=== PATIENT | male | born 1960 | race Caucasian/White ===

== ENCOUNTER → 2018-02-17 09:17 | Outpatient (CLI) | payer BC, SELFPAY ==
[2018-02-17 12:41] LABS: Anion Gap 2 (5-15); BUN 18 mg/dL (7-18); BUN/Creat Ratio 17.6 RATIO (10-20); Chloride 105 mmol/L (98-107); Creatinine, Serum 1.02 mg/dL (0.70-1.30); EST Glomerular Filtration Rate 80 mL/min (>60); Est Glom Filt Rate - Afr Amer 96 mL/min (>60); Glucose 101 mg/dL (74-106); PSA,Total - Annual Screen 5.77 ng/mL (0.00-4.00); Sodium Level 139 mmol/L (136-145)
== END ==
PROVIDERS: Family Provider Family Medicine; PCP Family Medicine; Visit Provider Family Medicine
DX: R31.9 Hematuria, unspecified (principal); Z12.5 Encounter for screening for malignant neoplasm of prostate
CPT/HCPCS: 36415; 80048; 84153; 87086; 87088; G0103

== ENCOUNTER → 2018-05-13 09:19 | Outpatient (CLI) | payer BC, SELFPAY ==
[2018-05-13 11:02] LABS: PSA,Total- Diagnostic 4.64 ng/mL (0.0-4.0)
== END ==
PROVIDERS: Family Provider Family Medicine; PCP Family Medicine; Visit Provider Family Medicine
DX: R97.20 Elevated prostate specific antigen [PSA] (principal)
CPT/HCPCS: 36415; 84153

== ENCOUNTER → 2018-08-18 08:41 | Outpatient (CLI) | payer BC, SELFPAY ==
[2018-08-18 11:25] LABS: PSA,Total- Diagnostic 5.72 ng/mL (0.0-4.0)
== END ==
PROVIDERS: Family Provider Family Medicine; PCP Family Medicine; Visit Provider Family Medicine
DX: R97.20 Elevated prostate specific antigen [PSA] (principal)
CPT/HCPCS: 36415; 84153

== ENCOUNTER → 2019-02-03 08:51 | Outpatient (CLI) | payer OTHER, SELFPAY ==
[2019-02-03 10:40] LABS: Anion Gap 4 (5-15); BUN 20 mg/dL (7-18); BUN/Creat Ratio 20.7 RATIO (10-20); Calcium,Total 8.6 mg/dL (8.5-10.1); Chloride 106 mmol/L (98-107); Cholesterol 189 mg/dL (200); Creatinine, Serum 0.96 mg/dL (0.70-1.30); EST Glomerular Filtration Rate 85 mL/min (>60); Est Glom Filt Rate - Afr Amer 102 mL/min (>60); Glucose 87 mg/dL (74-106); High Density Lipoprotein 41 mg/dL; PSA,Total- Diagnostic 5.02 ng/mL (0.0-4.0); Potassium 4.2 mmol/L (3.5-5.1); Sodium Level 142 mmol/L (136-145); Triglycerides 137 mg/dL; Very Low Density Lipoprotein 27 mg/dL (5-40)
== END ==
PROVIDERS: Family Provider Family Medicine; PCP Family Medicine; Referring Provider Family Medicine; Visit Provider Family Medicine
DX: N20.0 Calculus of kidney (principal); R97.20 Elevated prostate specific antigen [PSA]; Z13.220 Encounter for screening for lipoid disorders
CPT/HCPCS: 36415; 80048; 80061; 84153

== ENCOUNTER → 2019-07-13 | Outpatient (CLI) | payer OTHER, SELFPAY ==
[2019-07-13 10:30] LABS: PSA,Total- Diagnostic 5.02 ng/mL (0.0-4.0)
== END | disposition home or self-care (01) ==
LOC: MFPLAB 08:02
PROVIDERS: Family Provider Family Medicine; PCP Family Medicine; Referring Provider Family Medicine; Visit Provider Family Medicine
DX: R97.20 Elevated prostate specific antigen [PSA] (principal)
CPT/HCPCS: 36415; 84153

== ENCOUNTER → 2020-05-02 11:11 | Outpatient (CLI) | payer OTHER, SELFPAY ==
[2020-05-02 11:15] LABS: Mucous, Urine 0 SEEN /hpf (<or=2+); Red Blood Cells-Urine 0 SEEN /hpf (0-5); Squamous Epithelial Cells - UA 0 SEEN /hpf (0-5); White Blood Cells 0 SEEN /hpf (0-5)
[2020-05-02 12:23] LABS: Color, Urine Yellow (Yellow); Glucose, Dipstick Normal (Normal); Ketone-Dipstick Negative (Negative); Leukocyte Esterase-Dipstick Negative /ul (Negative); Nitrite-Dipstick Negative (Negative); Occult Blood-Urine 10 /ul (Negative); Protein-Dipstick 15 mg/dl (Negative); Urine Bilirubin Dipstick Negative (Negative); Urine Clarity Clear (Clear); Urine Urobilinogen Normal (Normal)
[2020-05-02 12:29] LABS: Bacteria RARE /hpf (None Seen)
== END ==
PROVIDERS: PCP Family Medicine; Referring Provider Family Medicine; Visit Provider Family Medicine
DX: R30.0 Dysuria (principal)
CPT/HCPCS: 81001; 87086

== ENCOUNTER → 2020-05-04 17:34 | Outpatient (CLI) | payer OTHER, SELFPAY ==
--- NOTE | 2020-05-04 17:40 | CT_ITS ---
STUDY: CT ABDOMEN AND PELVIS WITHOUT CONTRAST REASON FOR EXAM: Male, 60 years old. Groin/bladder/penile pain. Hematuria. RADIATION DOSAGE (If Supplied By Facility): CTDIvol = ( 6.04 ) mGy, DLP = ( 306.55 ) mGycm TECHNIQUE: Transaxial images were obtained from the dome of the diaphragm to the symphysis pubis without oral contrast, and without intravenous contrast. Sagittal and coronal images were reconstructed. Individualized dose optimization techniques were used for this CT. COMPARISON: 10/19/2015 FINDINGS: The visualized lung bases are unremarkable. The visualized portions of the heart are within normal limits. Normal liver. Multiple small gallstones within the gallbladder. There is no wall thickening or inflammatory change. There is a cyst in the anterior spleen. Normal pancreas. Normal bilateral adrenal glands. Normal right kidney. Normal left kidney. Normal visualized stomach. Normal small intestine. Normal colon. The appendix is visualized and appears normal. There is diffuse atherosclerotic calcification of the abdominal aorta, without a demonstrated aneurysm. Normal inferior vena cava. Normal retroperitoneum. There is a ovoid 1.7 x 0.8 x 0.9 cm calcific mass in the left posterior bladder lumen. There is no wall thickening. The prostate is massively enlarged and invaginates into the bladder floor. There is no pelvic lymphadenopathy. No free air or free fluid is seen within the peritoneal cavity. Normal abdominal wall. There are diffuse degenerative changes of the visualized lumbar spine. No lytic or blastic lesions are seen. CT/Abdomen/Pelvis without Cont IMPRESSION: 1. Large left-sided bladder calculus not present on previous CT. 2. No other major change in findings from 10/19/2015. Again seen is a markedly enlarged prostate, gallstones and a stable left splenic cyst. Electronically Signed: Clyde Guajardo DO at 22:47 EDT Tel [phone], Service support ,
== END ==
PROVIDERS: PCP Family Medicine; Referring Provider Family Medicine; Visit Provider Family Medicine
DX: R30.0 Dysuria (principal)
CPT/HCPCS: 74176

== ENCOUNTER → 2020-05-25 09:23 | Outpatient (CLI) | payer OTHER, SELFPAY ==
--- NOTE | 2020-05-25 09:35 | EKG12_ITS ---
Test Reason : PRE OP Blood Pressure : / mmHG Vent. Rate : 059 BPM Atrial Rate : 059 BPM P-R Int : 140 ms QRS Dur : 100 ms QT Int : 382 ms P-R-T Axes : 036 080 071 degrees QTc Int : 378 ms Sinus bradycardia Otherwise normal ECG Confirmed by AURELIANO WATSON, SOUMYA ([id number]), make up editor DIOGENES RENE ([id number]) on 05/26/2020 11:37:00 A M Referred By: Aracely Lynn Confirmed By:GIANNA BEDOYA MD
[2020-05-25 09:42] LABS: Hematocrit 46.4 % (40-54); Hemoglobin 14.8 g/dL (13.0-16.5); Mean Corp Hgb Conc 31.9 g/dL (32-36); Mean Corpuscular Hgb 29.9 pg (27.0-32.0); Mean Corpuscular Volume 93.7 fL (80-94); Mean Platelet Vol. 11.4 fl (6.2-12.0); Platelet Count 191 K/mm3 (150-450); RBC Distribution Width CV 13.1 % (11.6-14.6); RBC Distribution Width SD 44.8 fl (35.1-43.9); Red Blood Count 4.95 M/mm3 (4.6-6.2)
[2020-05-25 10:11] LABS: Anion Gap 3 (5-15); BUN 21 mg/dL (7-18); BUN/Creat Ratio 17.9 RATIO (10-20); Calcium,Total 8.9 mg/dL (8.5-10.1); Chloride 104 mmol/L (98-107); Creatinine, Serum 1.17 mg/dL (0.70-1.30); EST Glomerular Filtration Rate 67 mL/min (>60); Est Glom Filt Rate - Afr Amer 82 mL/min (>60); Glucose 93 mg/dL (74-106); Potassium 3.9 mmol/L (3.5-5.1); Sodium Level 138 mmol/L (136-145)
== END ==
PROVIDERS: PCP Family Medicine; Referring Provider Nurse Practitioner Adult Health; Visit Provider Nurse Practitioner Adult Health
DX: N21.0 Calculus in bladder (principal)
CPT/HCPCS: 36415; 80048; 85027; 87635; 93005; 94799; U0003

== ENCOUNTER → 2020-07-04 12:30 | Outpatient (CLI) | payer OTHER, SELFPAY | PROVIDERS: PCP Family Medicine; Referring Provider Family Medicine; Visit Provider Family Medicine | DX: R05 Cough (principal) | CPT/HCPCS: 87635; U0003 ==

== ENCOUNTER → 2020-07-27 08:49 | Outpatient (CLI) | payer OTHER, SELFPAY ==
[2020-07-27 09:58] LABS: PSA,Total- Diagnostic 5.76 ng/mL (0.0-4.0)
== END ==
PROVIDERS: PCP Family Medicine; Referring Provider Urology; Visit Provider Urology
DX: R97.20 Elevated prostate specific antigen [PSA] (principal)
CPT/HCPCS: 36415; 84153

== ENCOUNTER → 2020-08-31 10:52 | Outpatient (CLI) | payer OTHER, SELFPAY ==
--- NOTE | 2020-08-31 | IMM_PTH ---
PATIENT: MIGUE PURDY LOC: [facility] U#:[id number] AGE/SX: 65/M ROOM: RE08/31/[address]: Dr. Pablo Lara MD : 1960 BED: DIS: SPEC #: [id number] RECD: 09/01/20 11:45 STATUS: HARPREET REQ #: [id number] EVERARDO: 08/31/20 00:[address]: Pablo Lara DEPT: IMMUNOHISTOCHEMISTRY RECD BY: Maddie Vásquez ENTERED: 09/01/20 11:46 SP TYPE: IMMUNO OTHR DR: Dr. Pankaj Nicolas MD Tissues: B - PROSTATE RIGHT D - PROSTATE LEFT Procedures: 34BE12 (add) P40 (add) 34BE12 (initial) PHYSICIAN & INSTITUTION [place] [id number] SPECIMEN INFORMATION: Tissue Source: B - Right prostate, mid, core biopsy, D - Left prostate, apex, core biopsy Clinical Info: Elevated PSA Specimen Number: [id number] B & D CPT code: 95669, 43694 x3 METHODOLOGY: Deparaffinized sections of prefer/formalin-fixed tissue or PAP/DQ stained slides are incubated with monoclonal/polyclonal antibodies/oligonucleotide probes. Localization is made via biotin free immunoperoxidase method. Appropriate controls are performed and reacted as expected. Results on target cell population are indicated in the following table: RESULTS: ANTIBODY / CLONE RESULT Block B P40 (BC28) positive 34BE12 (34BE12) positive Block D P40 (BC28) positive 34BE12 (34BE12) positive These tests were developed and their performance characteristics determined by [facility]. They may not have been cleared or approved by the U.S. Food and Drug Administration. The FDA has determined that such clearance or approval is not necessary. The above immunohistochemical/dualISH markers are ordered and reviewed by the Pathologist. INTERPRETATION: B. Right prostate, mid, core biopsy: Consistent with focal high-grade prostatic intraepithelial neoplasia (HGPIN). D. Left prostate, apex, core biopsy: Benign metastatic tissue. AM:josefa 09/04/20
--- NOTE | 2020-08-31 08:00 | PROSBIL_PTH ---
PATIENT: MIGUE PURDY LOC: [facility] U#:[id number] AGE/SX: 65/M ROOM: RE08/31/[address]: Dr. Pablo Lara MD : 1960 BED: DIS: SPEC #: [id number] RECD: 08/31/20 10:35 STATUS: HARPREET LESLIE #: [id number] EVERARDO: 08/31/20 08:[address]: Pablo Lara DEPT: SURGICAL PATHOLOGY RECD BY: Amie Gaitan ENTERED: 08/31/20 12:00 SP TYPE: PROST BX REDDY DR: Dr. Pankaj Nicolas MD Tissues: A - PROSTATE RIGHT B - PROSTATE RIGHT C - PROSTATE RIGHT D - PROSTATE LEFT E - PROSTATE LEFT F - PROSTATE LEFT Procedures: PROSTATE BX HEADER OPERATION: Prostate biopsy PRE-OP DIAGNOSIS: Elevated PSA TISSUE SUBMITTED: A - Right apex, B - Right mid, C - Right base, D - Left apex, E - Left mid, F - Left base MICROSCOPIC DIAGNOSIS A. Right prostate, apex, core biopsy: Prostatic tissue, negative for malignancy. B. Right prostate, mid, core biopsy: Focal high-grade prostatic intraepithelial neoplasia (HGPIN). See comment. C. Right prostate, base, core biopsy: Prostatic tissue, negative for malignancy. D. Left prostate, apex, core biopsy: Focal atrophy. See comment. E. Left prostate, mid, core biopsy: Focal high-grade prostatic intraepithelial neoplasia (HGPIN). F. Left prostate, base, core biopsy: Focal high-grade prostatic intraepithelial neoplasia (HGPIN). SJ:josefa 09/01/20 COMMENT B & D. Immunohistochemistry ([id number]) supports the above diagnosis. Case has been reviewed in consultation with Dr. Zarate who concurs with the above diagnosis. IDC:[email or web address] MICROSCOPIC DESCRIPTION Slides are reviewed. GROSS DESCRIPTION A - Received is one container designated prostate, right apex. The specimen consists of one elongated fragment of light espinoza-white soft tissue measuring 0.8 cm in length and 0.1 cm in diameter. The specimen is totally submitted in one cassette. B - Received is one container designated prostate, right mid. The specimen consists of two elongated fragments of light espinoza-white soft tissue measuring 1.2 and 1.8 cm in length and 0.1 cm in diameter. The specimen is totally submitted in one cassette. C - Received is one container designated prostate, right base. The specimen consists of two elongated fragments of light espinoza-white soft tissue measuring 1.2 and 1.7 cm in length and 0.1 cm in diameter. The specimen is totally submitted in one cassette. D - Received is one container designated prostate, left apex. The specimen consists of one elongated fragment of light espinoza-white soft tissue measuring 1 cm in length and 0.1 cm in diameter. The specimen is totally submitted in one cassette. E - Received is one container designated prostate, left mid. The specimen consists of two elongated fragments of light espinoza-white soft tissue measuring 0.7 and 1.5 cm in length and 0.1 cm in diameter. The specimen is totally submitted in one cassette. F - Received is one container designated prostate, left base. The specimen consists of two elongated fragments of light espinoza-white soft tissue measuring 1.2 and 1.5 cm in length and 0.1 cm in diameter. The specimen is totally submitted in one cassette. / SJ:rg 08/31/20 TC:? CPT: 93352 x6
== END ==
PROVIDERS: PCP Family Medicine; Referring Provider Urology; Visit Provider Urology
DX: N40.1 Benign prostatic hyperplasia with lower urinary tract symptoms (principal); R97.20 Elevated prostate specific antigen [PSA]
CPT/HCPCS: 88305; 88341; 88342; G0416

== ENCOUNTER → 2020-09-27 15:11 | Outpatient (CLI) | payer OTHER, SELFPAY | PROVIDERS: PCP Family Medicine; Visit Provider Family Medicine | DX: R05 Cough (principal) | CPT/HCPCS: 87635; U0003 ==

== ENCOUNTER → 2020-10-09 14:54 | Outpatient (CLI) | payer OTHER, SELFPAY ==
--- NOTE | 2020-10-09 15:03 | RAD_ITS ---
STUDY: X-RAY CHEST REASON FOR EXAM: Male, 60 years old. UPPER CHEST DISCOMFORT, COUGH- POSTIVE COVID 09/27, NOW HAVING FEVERS AND CONTINUED UPPER CHEST DISCOMFORT TECHNIQUE: PA and lateral views of the chest. COMPARISON: None. FINDINGS: The lungs are clear and expanded. There is no demonstrated pleural abnormality. Normal size heart. Normal mediastinum and monica. Normal visualized pulmonary arteries. Normal visualized aortic arch and descending thoracic aorta. Normal visualized thoracic spine. Normal visualized ribs, clavicles, and shoulders. There is no demonstrated abnormality of the visualized soft tissue structures of the upper abdomen. RAD/Chest PA and Lateral IMPRESSION: Normal x-ray examination of the chest. Electronically Signed: Beto Lee MD at 15:46 EST Tel , Service support ,
== END ==
PROVIDERS: PCP Family Medicine; Referring Provider Nurse Practitioner Adult Health; Visit Provider Nurse Practitioner Adult Health
DX: R05 Cough (principal)
CPT/HCPCS: 71046

== ENCOUNTER → 2021-02-09 07:42 | Outpatient (CLI) | payer OTHER, SELFPAY ==
[2021-02-09 10:58] LABS: PSA,Total- Diagnostic 6.24 ng/mL (0.0-4.0)
== END ==
PROVIDERS: PCP Family Medicine; Referring Provider Urology; Visit Provider Urology
DX: R97.20 Elevated prostate specific antigen [PSA] (principal)
CPT/HCPCS: 36415; 84153

== ENCOUNTER → 2021-05-04 13:44 | Outpatient (CLI) | payer OTHER, SELFPAY ==
--- NOTE | 2021-05-04 13:52 | ECHOD_ITS ---
Reason For Study: Abnormal EKG Procedure This was a 2D Doppler, Color Flow transthoracic echocardiogram. The exam was of adequate technical quality. Exam performed in department. Left Ventricle Normal LV size. Left ventricular systolic function is normal. The estimated ejection fraction is 65 %. There is evidence of diastolic dysfunction. No regional wall motion abnormalities noted. Right Ventricle Normal RV size. Normal systolic function. Atria The left atrium is mildly enlarged. The right atrium is mildly enlarged. No doppler evidence for ASD. Mitral Valve There is no mitral annular calcification. Mild focal mitral valve calcification of the anterior leaflet. Trivial mitral valve insufficiency. Tricuspid Valve Normal tricuspid valve. Mild tricuspid valve insufficiency. Right ventricular systolic pressure estimated to be 24 mmHg. Aortic Valve Trisinus/trileaflet aortic valve. Mild diffuse aortic valve thickening. Mild focal aortic valve calcification. Pulmonic Valve The pulmonic valve is not well visualized. Great Vessels The aortic root is not well visualized. Pericardium/Pleural No pericardial effusion. MMode/2D Measurements & Calculations LVIDd: 3.5 cm IVSd: 1.1 cm LA dimension: 2.8 cm LVIDs: 1.9 cm LVPWd: 1.3 cm RVDd: 3.9 cm FS: 45.4 % LAV(MOD-bp): 59.5 ml LA A4 area: 21.1 cm2 RA A4 area: 21.1 cm2 LAV(MOD-bp) Indexed: 34.2 ml/m2 LAV(MOD-sp2): 56.0 ml LAV(MOD-sp4): 62.9 ml Time Measurements MV dec time: 0.30 sec Doppler Measurements & Calculations MV E max silver: 108.9 cm/sec Lat Peak E' Silver: 6.3 cm/sec Med Peak E' Silver: 7.3 cm/sec MV A max silver: 120.2 cm/sec E/E' lat: 17.2 E/E' med: 14.9 MV E/A: 0.91 MV V2 max: 168.2 cm/sec MV P1/2t max silver: 154.1 cm/sec Ao V2 max: 159.4 cm/sec MV max P.3 mmHg MV P1/2t: 106.8 msec Ao max P.2 mmHg MV V2 mean: 98.1 cm/sec MV dec slope: 422.6 cm/sec2 MV mean P.5 mmHg MVA(P1/2t): 2.1 cm2 MV V2 VTI: 51.5 cm LV V1 max: 132.5 cm/sec PA V2 max: 68.6 cm/sec TR max silver: 231.2 cm/sec LV V1 max P.0 mmHg TR max P.4 mmHg ECHO/Echo Complete Interpretation Summary Left ventricular systolic function is normal. The estimated ejection fraction is 65 %. The left atrium is mildly enlarged. The right atrium is mildly enlarged. Mild focal mitral valve calcification of the anterior leaflet. Trivial mitral valve insufficiency. Mild tricuspid valve insufficiency. Mild diffuse aortic valve thickening. Mild focal aortic valve calcification. Right ventricular systolic pressure estimated to be 24 mmHg. There is evidence of diastolic dysfunction. Ordering Physician: Karen Espinal Referring Physician: Karen Espinal Performed By: Rommel Ramirez RCS
== END ==
PROVIDERS: PCP Internal Medicine; Referring Provider Internal Medicine; Visit Provider Internal Medicine
DX: R94.31 Abnormal electrocardiogram [ECG] [EKG] (principal)
CPT/HCPCS: 93306

== ENCOUNTER → 2021-07-12 11:42 | Outpatient (CLI) | payer OTHER, SELFPAY ==
[2021-07-12 15:15] LABS: PSA,Total- Diagnostic 7.98 ng/mL (0.0-4.0)
[2021-07-15 07:48] LABS: PSA, Free 1.35 ng/mL; PSA, Total Ultrasensitive 7.1 ng/mL (0.0-4.0)
== END ==
PROVIDERS: PCP Urology; Referring Provider Urology; Visit Provider Urology
DX: R97.20 Elevated prostate specific antigen [PSA] (principal)
CPT/HCPCS: 36415; 84153; 84154

== ENCOUNTER → 2021-08-13 17:42 | Outpatient (CLI) | payer OTHER, SELFPAY ==
[2021-08-09 16:36] LABS: CREATININE FINGERSTICK < 0.6 mg/dL (0.70-1.30); EGFR FINGERSTICK > 60.0000 mL/min (>60)
--- NOTE | 2021-08-13 17:59 | MRI_ITS ---
MR Pelvis WO/W Contrast 08/13/2021 6:20 PM COMPARISON: None CLINICAL HISTORY: 61 yo man with elevated PSA Most recent PSA = not provided TECHNIQUE: Standard Prostate MRI protocol was used before and after administration of IV gadolinium. FINDINGS: Prostate volume: 82 cc PSA density: PSA level not provided Length of membranous urethra: 19 mm Post-biopsy hemorrhage: None Multiparametric MR evaluation: Heterogeneous appearance of the central gland is consistent with benign prostatic hyperplasia. No suspicious T2 dark or diffusion restricting lesions. Seminal vesicles: Normal Lymph nodes: No lymphadenopathy in the field of view. Bones: No suspicious lesions in the field of view. MRI/Pelvis W/WO Contrast IMPRESSION: OVERALL SCORE - PI-RADS 2: Benign prostatic hyperplasia. No suspicious T2 dark or diffusion restricting lesions. No lymphadenopathy. No suspicious bone lesions. Electronically Signed: Koko Peters MD at 21:49 EST Tel , Service support ,
== END ==
PROVIDERS: PCP Internal Medicine; Referring Provider Urology; Visit Provider Urology
DX: N40.1 Benign prostatic hyperplasia with lower urinary tract symptoms (principal); R97.20 Elevated prostate specific antigen [PSA]
CPT/HCPCS: 72197; A9575

== ENCOUNTER 2022-04-06 18:33 | Inpatient (IN) | payer OTHER, SELFPAY ==
[2022-04-06 18:34] VITALS: BP 200/84; RESP 18; TEMP 36.6
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
--- NOTE | 2022-04-06 19:19 | EKG12_ITS ---
Test Reason : Blood Pressure : / mmHG Vent. Rate : 093 BPM Atrial Rate : 093 BPM P-R Int : 148 ms QRS Dur : 084 ms QT Int : 344 ms P-R-T Axes : 082 083 079 degrees QTc Int : 427 ms Normal sinus rhythm Normal ECG Confirmed by ANALY WATSON, MONICA ([id number]), order editor DIOGENES RENE ([id number]) on 04/09/2022 9:00:36 AM Referred By: Confirmed By:MONCIA BECKFORD MD
[2022-04-06] MEDS: Ondansetron 4 MG/2 ML Vial IV ×2 (19:41→22:51)
[2022-04-06] MEDS: morphine 8 MG/ML Syringe 6 MG IV (19:43)
[2022-04-06 19:44] LABS: Hematocrit 44.5 % (40-54); Hemoglobin 14.5 g/dL (13.0-16.5); Mean Corp Hgb Conc 32.6 g/dL (32-36); Mean Corpuscular Hgb 30.5 pg (27.0-32.0); Mean Corpuscular Volume 93.5 fL (80-94); Mean Platelet Vol. 12.1 fl (6.2-12.0); Platelet Count 177 K/mm3 (150-450); RBC Distribution Width SD 44.3 fl (35.1-43.9); Red Blood Count 4.76 M/mm3 (4.6-6.2)
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
[2022-04-06 19:57] LABS: Anion Gap 7 (5-15); BUN 26 mg/dL (7-18); BUN/Creat Ratio 27.2 RATIO (10-20); Calcium,Total 8.9 mg/dL (8.5-10.1); Chloride 109 mmol/L (98-107); Creatinine, Serum 0.96 mg/dL (0.70-1.30); EST Glomerular Filtration Rate 84 mL/min (>60); Est Glom Filt Rate - Afr Amer 102 mL/min (>60); Estimated Creatinine Clearance 71.66 ml/min; Glucose 115 mg/dL (74-106); Potassium 3.9 mmol/L (3.5-5.1); Sodium Level 143 mmol/L (136-145)
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
[2022-04-06 20:41] VITALS: BP 137/70; PULSE 74; RESP 16; TEMP 37.1; O2SAT 97
[2022-04-06] MEDS: Lactated Ringers 1,000 ML 75 ML IV (21:00)
[2022-04-06 21:01] VITALS: BMI 19.8
[2022-04-06 21:04] VITALS: BP 133/79; PULSE 96; RESP 18; TEMP 36.9; O2SAT 93
[2022-04-06] MEDS: Doxazosin 1 MG Tablet 2 MG PO (22:13)
[2022-04-06] MEDS: Morphine 4 MG/ML Syringe IV (22:51)
[2022-04-06] MEDS: 0.9% Saline Lock 10 ML Syringe IV (22:51)
[2022-04-07] VITALS (11 sets, daily range): BP systolic 98–130; BP diastolic 56–80; PULSE 79–103; RESP 14–18; TEMP 36.3–36.9; O2SAT 92–100; BMI 19.8
[2022-04-07 06:29] LABS: Absolute Lymphocyte Count 0.38 X10^3/uL (0.83-4.51); Absolute Neutrophil Count 13.6 X10^3/uL (2.0-7.7); Basophil# 0.01 X10^3/uL; Basophil% 0.1 % (0-1); Hematocrit 39.2 % (40-54); Hemoglobin 13.1 g/dL (13.0-16.5); Lymphocyte # 0.38 X10^3/ul (0.83-4.51); Lymphocyte % 2.5 % (19-41); Mean Corp Hgb Conc 33.4 g/dL (32-36); Mean Corpuscular Hgb 30.3 pg (27.0-32.0); Mean Corpuscular Volume 90.5 fL (80-94); Mean Platelet Vol. 11.9 fl (6.2-12.0); Monocyte% 6.7 % (0-10); NRBC Flagged by Analyzer 0 % (0-5); Neutrophil # 13.57 X10^3/uL (2.7-7.7); Neutrophil % 90.3 % (47-70); POSITIVE DIFFERENTIAL YES; Platelet Count 137 K/mm3 (150-450); RBC Distribution Width CV 13.2 % (11.6-14.6); RBC Distribution Width SD 43.9 fl (35.1-43.9); Red Blood Count 4.33 M/mm3 (4.6-6.2)
[2022-04-07 06:32] LABS: Differential Indicated SCAN CRITERIA MET
[2022-04-07] MEDS: Morphine 4 MG/ML Syringe IV (06:37)
[2022-04-07] MEDS: Ondansetron 4 MG/2 ML Vial IV ×2 (06:37→16:49)
[2022-04-07] MEDS: 0.9% Saline Lock 10 ML Syringe IV ×2 (06:37→16:49)
[2022-04-07 06:56] LABS: Anion Gap 5 (5-15); BUN 23 mg/dL (7-18); BUN/Creat Ratio 26.7 RATIO (10-20); Calcium,Total 8.8 mg/dL (8.5-10.1); Chloride 106 mmol/L (98-107); Creatinine, Serum 0.86 mg/dL (0.70-1.30); EST Glomerular Filtration Rate 95 mL/min (>60); Est Glom Filt Rate - Afr Amer 115 mL/min (>60); Estimated Creatinine Clearance 78.73 ml/min; Glucose 152 mg/dL (74-106); Potassium 3.9 mmol/L (3.5-5.1); Sodium Level 139 mmol/L (136-145)
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
[2022-04-07] MEDS: Lactated Ringers 1,000 ML 75 ML IV ×2 (08:07→10:31)
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
--- NOTE | 2022-04-07 09:00 | RAD_ITS ---
STUDY: X-RAY - PELVIS AND RIGHT HIP REASON FOR EXAM: Male, 61 years old. HIP FX TECHNIQUE: AP and frog leg views of the pelvis and hip. 71.7 seconds of fluoroscopy time. COMPARISON: Yesterday FINDINGS: Femoral medullary ludy with distal interlocking screw and femoral neck fixation screw spanning IT fracture. RAD/HIP, UNI W/ Pelvis 2-3 Views IMPRESSION: Fluoroscopic guidance for IT fracture fixation. Electronically Signed: Andrade Torres MD ([facility]) at 16:53 EDT ,
--- NOTE | 2022-04-07 09:06 | RAD_ITS ---
STUDY: X-RAY - RIGHT CLAVICLE REASON FOR EXAM: Male, 61 years old. CLAVICLE FX TECHNIQUE: 2 fluoroscopic view(s) of the clavicle. 10.1 seconds of fluoroscopy time. COMPARISON: 04/06/2022 FINDINGS: Fixation plate and screws spanning clavicle fracture. Gross alignment. RAD/Clavicle IMPRESSION: Orthopedic fixation of clavicle fracture. Electronically Signed: Andrade Torres MD ([facility]) at 16:51 EDT ,
[2022-04-07] MEDS: Cefazolin 2 GM in 0.9% Normal Saline 100 ML IV (10:00)
[2022-04-07] MEDS: Lidocaine 1% /Epi 1:100 (20ml) 20 ML Vial (10:18)
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
--- NOTE | 2022-04-07 12:54 | PCM.PN.ORT ---
Subjective Subjective Seen and examined in the recovery area he is doing well he is comfortable he is neurovascular intact right upper and right lower extremity Objective Data Objective Data Vital Signs: Vital Signs Temp Pulse Resp BP Pulse Ox O2 Del Method 98.4 F 81 16 109/69 95 Room Air 04/07/22 08:00 04/07/22 08:00 04/07/22 08:00 04/07/22 08:00 04/07/22 08:00 04/07/22 08:00 Oxygen Delivery Method Room Air Weight: 137 lb 12.623 oz Body Mass Index (BMI) 19.8 Intake & Output: Intake and Output for Last 24 Hours 04/05/22 04/06/22 04/07/22 23:59 23:59 23:59 Intake Total 1073.75 / 1073.75 Output Total 475 / 475 Balance 598.75 / 598.75 Lab / Micro Data Result Diagrams: 04/07/22 05:55 04/07/22 05:55 Labs: Laboratory Results - last 24 hr 04/06/22 19:24: Blood Type O NEGATIVE, Antibody Screen NEGATIVE 04/06/22 19:33: WBC 17.0 H, RBC 4.76, Hgb 14.5, Hct 44.5, MCV 93.5, MCH 30.5, MCHC 32.6, RDW Std Deviation 44.3 H, RDW Coeff of Letty 13.0, Plt Count 177, MPV 12.1 H 04/06/22 19:33: Sodium 143, Potassium 3.9, Chloride 109 H, Carbon Dioxide 27.0, Anion Gap 7, BUN 26 H, Creatinine 0.96, Estim Creat Clear Calc 71.66, Est GFR (MDRD) Af Amer 102, Est GFR (MDRD) Non-Af 84, BUN/Creatinine Ratio 27.2 H, Glucose 115 H, Calcium 8.9 04/07/22 05:55: WBC 15.0 H, RBC 4.33 L, Hgb 13.1, Hct 39.2 L, MCV 90.5, MCH 30.3, MCHC 33.4, RDW Std Deviation 43.9, RDW Coeff of Letty 13.2, Plt Count 137 L, MPV 11.9, Immature Gran % (Auto) 0.400, Neut % (Auto) 90.3 H, Lymph % (Auto) 2.5 L, [place] % (Auto) 6.7, Eos % (Auto) 0.0, Baso % (Auto) 0.1, Absolute Neuts (auto) 13.6 H, Absolute Lymphs (auto) 0.38 L, Nucleated RBC % 0 04/07/22 05:55: Sodium 139, Potassium 3.9, Chloride 106, Carbon Dioxide 28.0, Anion Gap 5, BUN 23 H, Creatinine 0.86, Estim Creat Clear Calc 78.73, Est GFR (MDRD) Af Amer 115, Est GFR (MDRD) Non-Af 95, BUN/Creatinine Ratio 26.7 H, Glucose 152 H, Calcium 8.8 Radiography Diagnostic Testing: Radiology Impression Brain CT 04/06/22 18:41 IMPRESSION: No acute intracranial hemorrhage or mass effect. Electronically Signed: Andrade Torres MD ([facility]) at 19:50 EDT , Cervical Spine CT 04/06/22 18:41 IMPRESSION: No acute findings in the cervical spine. Electronically Signed: Andrade Torres MD ([facility]) at 19:55 EDT , Facial/Sinus 04/06/22 18:51 IMPRESSION: Nondisplaced right zygomatic arch fracture. Electronically Signed: Andrade Torres MD ([facility]) at 19:53 EDT , Chest X-Ray 04/06/22 19:13 IMPRESSION: Right clavicle fracture. No acute cardiopulmonary process. Electronically Signed: Andrade Torres MD ([facility]) at 19:36 EDT , Hip/Pelvis X-Ray 04/06/22 19:13 IMPRESSION: 1. Right IT fracture. 2. Right superior and inferior rami fractures. Electronically Signed: Andrade Torres MD ([facility]) at 19:26 EDT , Shoulder X-Ray 04/06/22 19:13 IMPRESSION: Right clavicle fracture. Electronically Signed: Andrade Torres MD ([facility]) at 19:37 EDT , Pelvis CT 04/06/22 19:56 IMPRESSION: 1. Right intertrochanteric fracture. 2. Right superior ramus fracture. 3. BILATERAL inferior obturator ring fractures. 4. Right sacral fractures. Electronically Signed: Andrade Torres MD ([facility]) at 21:09 EDT , Rhythm Strip Rhythm Strip: Sinus Rhythm Rate: 93 Ectopy: None Physical Exam Const no apparent distress Extremity Extremity Narrative: Right upper extremity and right lower extremity dressings clean dry and intact compartments soft he is neurovascular intact right upper and right lower extremity Assessment & Plan Assessment/Plan (1) Closed fracture of right clavicle: (2) Closed right hip fracture: PLAN: Plan Status post right hip trochanteric femoral nail along and right clavicle ORIF In regards to the right lower extremity he can be weightbearing as tolerated but considering his pelvic ring fractures I would not force him to bear weight and he is comfortable. He is limited to 10 pound restriction to the right upper extremity this is going to make rehab challenging and I strongly recommend that he receive rehab prior to going home I did discuss this with the family and they agree. I would recommend anticoagulation Eliquis 2.5 mg twice daily for 3 weeks. Pain control oxycodone Patient really will require physical therapy for upper and lower extremity He should leave his right hip dressing on for 72 hours and then remove and may begin cleaning with antibacterial soap and warm water and replace with dry dressing He can leave his right shoulder dressing on for 5 days then remove and begin cleaning with antibacterial soap and warm water and replace with dry dressing He will need to have his tone evaluated 2 weeks postop for possible removal in my office
[2022-04-07] MEDS: Cefazolin 1 GM/50 ML BAG IV ×2 (13:02→21:43)
[2022-04-07] MEDS: Acetaminophen 500 MG Tablet 1000 MG PO ×2 (14:41→21:47)
[2022-04-07] MEDS: oxyCODONE 5 MG Tablet 10 MG PO (18:03)
[2022-04-07] MEDS: proMETHazine 25 MG/ML Syringe 12.5 MG IM (19:36)
[2022-04-08] VITALS (7 sets, daily range): BP systolic 105–129; BP diastolic 61–70; PULSE 93–105; RESP 14–18; TEMP 37.2–37.4; O2SAT 84–95
[2022-04-08] MEDS: Cefazolin 1 GM/50 ML BAG IV (05:01)
[2022-04-08] MEDS: Acetaminophen 500 MG Tablet 1000 MG PO ×2 (05:02→13:26)
[2022-04-08] MEDS: APIXABAN 2.5 MG TABLET PO ×2 (05:35→21:06)
[2022-04-08 06:23] LABS: Hematocrit 30.5 % (40-54); Mean Corp Hgb Conc 32.8 g/dL (32-36); Mean Corpuscular Hgb 30.7 pg (27.0-32.0); Mean Corpuscular Volume 93.6 fL (80-94); Mean Platelet Vol. 12.4 fl (6.2-12.0); POSITIVE COUNT YES; Platelet Count 86 K/mm3 (150-450); RBC Distribution Width CV 13.4 % (11.6-14.6); RBC Distribution Width SD 45.5 fl (35.1-43.9); Red Blood Count 3.26 M/mm3 (4.6-6.2); White Blood Count 12.8 K/mm3 (4.4-11.0)
[2022-04-08] MEDS: Lactated Ringers 1,000 ML 75 ML IV ×2 (06:31→18:15)
[2022-04-08 06:52] LABS: Anion Gap 7 (5-15); BUN 18 mg/dL (7-18); BUN/Creat Ratio 16.8 RATIO (10-20); Calcium,Total 8.1 mg/dL (8.5-10.1); Chloride 100 mmol/L (98-107); Creatinine, Serum 1.07 mg/dL (0.70-1.30); EST Glomerular Filtration Rate 74 mL/min (>60); Est Glom Filt Rate - Afr Amer 90 mL/min (>60); Estimated Creatinine Clearance 63.28 ml/min; Glucose 111 mg/dL (74-106); Potassium 3.6 mmol/L (3.5-5.1); Sodium Level 134 mmol/L (136-145)
[2022-04-08 06:58] LABS: Scan Indicated on CBC? Y/N YES- FLAGS NOTED
[2022-04-08] MEDS: oxyCODONE 5 MG Tablet 10 MG PO ×2 (07:48→12:24)
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
--- NOTE | 2022-04-08 12:42 | CASEMGMT ---
Social Work SW received referral from RNCM that pt is interested in [facility] Inpatient Rehab Unit. Phone call to [facility] in [place] and they are able to accept pt. Precert has been started. KAROLINE will continue to follow. Plan: Inpatient Rehab, pending precert RAJAN Haynes
[2022-04-08] MEDS: 0.9% Saline Lock 10 ML Syringe IV (14:06)
[2022-04-08] MEDS: Ondansetron 4 MG/2 ML Vial IV (14:06)
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
[2022-04-08] MEDS: proMETHazine 25 MG/ML Syringe 12.5 MG IM (18:15)
[2022-04-08] MEDS: Doxazosin 1 MG Tablet 2 MG PO (21:06)
[2022-04-09 04:40] LABS: Hematocrit 28.6 % (40-54); Hemoglobin 9.7 g/dL (13.0-16.5); Mean Corp Hgb Conc 33.9 g/dL (32-36); Mean Corpuscular Hgb 30.5 pg (27.0-32.0); Mean Corpuscular Volume 89.9 fL (80-94); Mean Platelet Vol. 12.6 fl (6.2-12.0); POSITIVE COUNT YES; Platelet Count 76 K/mm3 (150-450); RBC Distribution Width CV 12.6 % (11.6-14.6); RBC Distribution Width SD 41.6 fl (35.1-43.9); Red Blood Count 3.18 M/mm3 (4.6-6.2); White Blood Count 9.7 K/mm3 (4.4-11.0)
[2022-04-09 05:00] VITALS: BP 130/71; PULSE 104; RESP 20; TEMP 37.2; O2SAT 95
[2022-04-09] MEDS: Acetaminophen 500 MG Tablet 1000 MG PO ×3 (05:10→21:52)
--- NOTE | 2022-04-09 06:15 | RAD_ITS ---
STUDY: X-RAY CHEST REASON FOR EXAM: Male, 61 years old. sob TECHNIQUE: Single AP portable view of the chest. COMPARISON: 04/06/2022 and 10/09/2020 FINDINGS: There is hyperinflation of the lungs consistent with chronic obstructive lung disease (COPD). Interstitial prominence throughout the lungs could represent mild edema. No consolidation or effusions. Normal size heart. Normal mediastinum and monica. Normal visualized pulmonary arteries. Normal visualized aortic arch and descending thoracic aorta. Normal visualized thoracic spine. Postsurgical changes of the right clavicle There is no demonstrated abnormality of the visualized soft tissue structures of the upper abdomen. RAD/Chest 1 View (Portable) IMPRESSION: Possible mild pulmonary edema. No consolidation or effusion. Postsurgical change of the right clavicle Electronically Signed: Fabiano Ramirez DO at 6:41 EDT ,
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
[2022-04-09 07:40] VITALS: O2SAT 94
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
[2022-04-09] MEDS: Furosemide 40 MG/4 ML Vial IV ×2 (08:09→14:35)
[2022-04-09] MEDS: APIXABAN 2.5 MG TABLET PO ×2 (08:09→21:51)
[2022-04-09 08:12] VITALS: BP 119/59; PULSE 97; RESP 18; TEMP 37.1; O2SAT 94
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
--- NOTE | 2022-04-09 10:50 | NURSING ---
Straight cath done and patient had 1,200 out.
[2022-04-09 14:31] VITALS: BP 129/68; PULSE 102; RESP 18; TEMP 37.4; O2SAT 98
--- NOTE | 2022-04-09 15:35 | CASEMGMT ---
ZELALEM CM in to pt room to make pt aware that approval has been received for the rehab unit by insurance when he is medically ready. Pt verbalizes understanding and denies any questions at this time.
[2022-04-09 21:43] VITALS: BP 116/72; PULSE 96; RESP 16; TEMP 36.8; O2SAT 96
[2022-04-09] MEDS: Doxazosin 4 MG Tablet PO (21:51)
[2022-04-10 02:16] VITALS: BP 110/74; PULSE 92; RESP 14; TEMP 37.1; O2SAT 97
[2022-04-10 05:22] LABS: Absolute Lymphocyte Count 0.59 X10^3/uL (0.83-4.51); Absolute Neutrophil Count 5.9 X10^3/uL (2.0-7.7); Basophil# 0.02 X10^3/uL; Basophil% 0.3 % (0-1); Eosinophil# 0.17 X10^3/uL; Eosinophils% 2.2 % (0-5); Hematocrit 29.4 % (40-54); Hemoglobin 10.2 g/dL (13.0-16.5); Lymphocyte # 0.59 X10^3/ul (0.83-4.51); Lymphocyte % 7.5 % (19-41); Mean Corp Hgb Conc 34.7 g/dL (32-36); Mean Corpuscular Hgb 30.6 pg (27.0-32.0); Mean Corpuscular Volume 88.3 fL (80-94); Mean Platelet Vol. 12.4 fl (6.2-12.0); Monocyte# 1.11 X10^3/uL; Monocyte% 14.1 % (0-10); NRBC Flagged by Analyzer 0 % (0-5); Neutrophil # 5.91 X10^3/uL (2.7-7.7); Neutrophil % 75.1 % (47-70); POSITIVE COUNT YES; POSITIVE DIFFERENTIAL YES; Platelet Count 83 K/mm3 (150-450); RBC Distribution Width CV 12.5 % (11.6-14.6); RBC Distribution Width SD 40.3 fl (35.1-43.9); Red Blood Count 3.33 M/mm3 (4.6-6.2); White Blood Count 7.9 K/mm3 (4.4-11.0)
[2022-04-10 05:25] LABS: Differential Indicated SCAN CRITERIA MET
[2022-04-10] MEDS: Acetaminophen 500 MG Tablet 1000 MG PO (05:36)
[2022-04-10 05:43] LABS: Anion Gap 5 (5-15); BUN 17 mg/dL (7-18); Calcium,Total 8.4 mg/dL (8.5-10.1); Chloride 93 mmol/L (98-107); Creatinine, Serum 0.77 mg/dL (0.70-1.30); EST Glomerular Filtration Rate 108 mL/min (>60); Est Glom Filt Rate - Afr Amer 131 mL/min (>60); Estimated Creatinine Clearance 87.93 ml/min; Glucose 112 mg/dL (74-106); Magnesium 2.1 mg/dL (1.6-2.6); Phosphorus 2.8 mg/dL (2.5-4.9); Potassium 3.3 mmol/L (3.5-5.1); Sodium Level 129 mmol/L (136-145)
[2022-04-10 06:06] LABS: Platelet Estimate MOD DEC (ADEQ)
[2022-04-10 07:50] VITALS: O2SAT 93
[2022-04-10 08:36] VITALS: BP 104/70; PULSE 87; RESP 16; TEMP 36.8; O2SAT 93
[2022-04-10] MEDS: Polyethylene Glycol 3350 17 GM PACKET PO (08:43)
[2022-04-10] MEDS: APIXABAN 2.5 MG TABLET PO (08:43)
[2022-04-10] MEDS: Potassium Chloride Oral Tablet 20 MEQ 60 MEQ PO (08:43)
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
[2022-04-10 10:18] VITALS: O2SAT 92; O2SAT 96
--- NOTE | 2022-04-10 11:07 | CASEMGMT ---
Social Work Per physician, Pt is ready for discharge today. SW updated Inpatient Rehab and they are able to accept today. SW met with pt and family and informed that he will discharge to today. SW explained inpatient Rehab unit and procedures and answered questions. Pt agreeable to d/c. Nursing updated that pt can be discharged. Plan: Inpatient Rehab today RAJAN Haynes
[2022-04-10 12:24] VITALS: BP 99/46; PULSE 86
[2022-04-10 13:39] VITALS: BP 108/51; PULSE 104
== END 2022-04-10 14:00 | DRG 956 ==
LOC: ED 19:50 → MS3 20:19
PROVIDERS: Orthopaedic Surgery; Admitting Provider Hospitalist; Emergency Provider Emergency Medicine; PCP Internal Medicine; Visit Provider Internal Medicine
PROC: 0QH606Z Insertion of Intramedullary Internal Fixation Device into Right Upper Femur, Open Approach (ICD-10-PCS; principal; 2022-04-07 09:45)
PROC: 0QH606Z Insertion of Intramedullary Internal Fixation Device into Right Upper Femur, Open Approach (ICD-10-PCS; CPT 23515; 2022-04-07 09:45)
DX: S72.141A Displaced intertrochanteric fracture of right femur, initial encounter for closed fracture (principal); S32.10XA Unspecified fracture of sacrum, initial encounter for closed fracture; J90 Pleural effusion, not elsewhere classified; S32.511A Fracture of superior rim of right pubis, initial encounter for closed fracture; E87.1 Hypo-osmolality and hyponatremia; S02.40EA Zygomatic fracture, right side, initial encounter for closed fracture; S32.591A Other specified fracture of right pubis, initial encounter for closed fracture; I16.1 Hypertensive emergency; D69.6 Thrombocytopenia, unspecified; S80.211A Abrasion, right knee, initial encounter; S80.212A Abrasion, left knee, initial encounter; S05.11XA Contusion of eyeball and orbital tissues, right eye, initial encounter; S42.001A Fracture of unspecified part of right clavicle, initial encounter for closed fracture; D64.9 Anemia, unspecified; D72.829 Elevated white blood cell count, unspecified; E87.6 Hypokalemia; S00.81XA Abrasion of other part of head, initial encounter; E87.70 Fluid overload, unspecified; V19.3XXA Pedal cyclist (driver) (passenger) injured in unspecified nontraffic accident, initial encounter; Z79.899 Other long term (current) drug therapy; R09.02 Hypoxemia; N40.1 Benign prostatic hyperplasia with lower urinary tract symptoms; R33.8 Other retention of urine; Y93.55 Activity, bike riding; Y99.9 Unspecified external cause status; Y92.9 Unspecified place or not applicable
CPT/HCPCS: 36415; 70450; 70486; 71045; 71275; 72125; 72192; 73000; 73030; 73502; 76000; 80048; 83735; 84100; 85025; 85027; 86850; 86900; 86901; 93005; 97110; 97116; 97162; 97167; 99251; 99284; C1713; J7040; J7120; Q9967; A4216; G0463; J1940; J2405

== ENCOUNTER 2022-04-10 14:10 | Inpatient (IN) | payer OTHER, SELFPAY ==
[2022-04-10 14:37] VITALS: BMI 19.4
[2022-04-10 15:14] VITALS: BP 123/62; PULSE 100; RESP 17; TEMP 36.8; O2SAT 93
[2022-04-10 17:03] VITALS: O2SAT 97
[2022-04-10 19:53] VITALS: BP 118/67; PULSE 96; RESP 12; TEMP 37.7; O2SAT 98
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
[2022-04-10 20:49] VITALS: TEMP 37.2
[2022-04-10] MEDS: Acetaminophen 500 MG Tablet 1000 MG PO (20:50)
[2022-04-10] MEDS: Senna/Docusate Sodium 1 Tablet 2 TABLET PO (20:50)
[2022-04-10] MEDS: Doxazosin 1 MG Tablet 2 MG PO (20:51)
[2022-04-10] MEDS: APIXABAN 2.5 MG TABLET PO (20:51)
[2022-04-11] MEDS: Acetaminophen 500 MG Tablet 1000 MG PO (05:11)
--- NOTE | 2022-04-11 08:11 | NURSING ---
Notified Dr. Delacruz of pt request to have Tylenol PRN, Dr. Delacruz approved to change Tylenol to PRN from scheduled.
--- NOTE | 2022-04-11 08:21 | NURSING ---
Notified Dr. Delacruz of pt K+ 3.3, received order for Kdur 20 meq daily with first dose now. Repeat BMP in 2 days. Order repeated back.
[2022-04-11 09:05] VITALS: O2SAT 93
[2022-04-11] MEDS: APIXABAN 2.5 MG TABLET PO ×2 (09:05→20:54)
[2022-04-11] MEDS: Potassium Chloride Oral Tablet 20 MEQ PO (09:05)
[2022-04-11 09:07] VITALS: BP 107/49; PULSE 96; RESP 20; TEMP 37.2; O2SAT 96
[2022-04-11] MEDS: 0.9% Saline Lock 10 ML Syringe IV (15:08)
--- NOTE | 2022-04-11 16:03 | CHAPLAIN ---
Type of Pastoral Visit _x__ Initial Visit ___ Follow-up Visit ___ On-call Visit ___ General Patient Visit ___ Spiritual Assessment ___ Family Conference ___ Bereavement ___ Rapid Response ___ Code Blue ___ Other (describe below) Pastoral Care Referral From _x__ Patient ___ Family ___ Nurse ___ Physician ___ Investment Counselor ___ Scrap Carrier ___ Other (describe below) Sacrament/Intervention _x__ Active listening ___ Anointing ___ Zoroastrianism ___ Bereavement ___ Communion _x__ Claudia exploration ___ ___ Life review _x__ Prayer ___ Reconciliation ___ Sacrament of Sick _x__ Supportive presence ___ Wedding ___ Other (describe below) Pastoral Comments patient was seen previously in [facility]; pt is very welcoming and enthusiastic about the visit from community health program representative; pt talks much about his claudia and thoughts of God; pt speaks of making small progress steps so far; pt recognizing that this may take some time; pt is open to visits and to receive spiriutal support
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
[2022-04-11 19:35] VITALS: BP 116/68; PULSE 91; RESP 18; TEMP 37.7; O2SAT 97
[2022-04-11] MEDS: Doxazosin 1 MG Tablet 2 MG PO (20:54)
[2022-04-12] MEDS: 0.9% Saline Lock 10 ML Syringe IV (06:02)
[2022-04-12 07:24] LABS: Absolute Neutrophil Count 6.6 X10^3/uL (2.0-7.7); Basophil# 0.05 X10^3/uL; Basophil% 0.5 % (0-1); Eosinophil# 0.29 X10^3/uL; Hematocrit 27.9 % (40-54); Hemoglobin 9.5 g/dL (13.0-16.5); Lymphocyte % 8.3 % (19-41); Mean Corp Hgb Conc 34.1 g/dL (32-36); Mean Corpuscular Hgb 30.4 pg (27.0-32.0); Mean Corpuscular Volume 89.4 fL (80-94); Mean Platelet Vol. 11.1 fl (6.2-12.0); Monocyte# 1.75 X10^3/uL; Monocyte% 18.1 % (0-10); NRBC Flagged by Analyzer 0 % (0-5); Neutrophil # 6.58 X10^3/uL (2.7-7.7); Neutrophil % 67.9 % (47-70); POSITIVE DIFFERENTIAL YES; Platelet Count 159 K/mm3 (150-450); RBC Distribution Width SD 42.1 fl (35.1-43.9); Red Blood Count 3.12 M/mm3 (4.6-6.2); White Blood Count 9.7 K/mm3 (4.4-11.0)
[2022-04-12 07:26] LABS: Differential Indicated SCAN CRITERIA MET
[2022-04-12 07:37] VITALS: BP 114/74; PULSE 92; RESP 17; TEMP 37.2; O2SAT 96
[2022-04-12 07:56] LABS: ALB/GLOB Ratio 0.9 RATIO (0.9-2.4); AST(SGOT) 33 U/L (15-37); Alanine Aminotransfer ALT/SGPT 30 U/L (16-61); Albumin, Serum 2.9 g/dL (3.2-5.0); Alkaline Phosphatase 50 U/L (45-117); Anion Gap 7 (5-15); BUN 18 mg/dL (7-18); BUN/Creat Ratio 23.5 RATIO (10-20); Calcium,Total 8.5 mg/dL (8.5-10.1); Chloride 94 mmol/L (98-107); Creatinine, Serum 0.76 mg/dL (0.70-1.30); EST Glomerular Filtration Rate 109 mL/min (>60); Est Glom Filt Rate - Afr Amer 132 mL/min (>60); Estimated Creatinine Clearance 92.66 ml/min; Globulin 3.3 g/dL (2.2-4.2); Glucose 109 mg/dL (74-106); Potassium 4.1 mmol/L (3.5-5.1); Protein, Total 6.2 g/dL (6.4-8.2); Sodium Level 127 mmol/L (136-145)
[2022-04-12] MEDS: APIXABAN 2.5 MG TABLET PO ×2 (09:26→20:19)
[2022-04-12] MEDS: Potassium Chloride Oral Tablet 20 MEQ PO (09:26)
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
[2022-04-12 12:05] LABS: Osmolality, Serum 264 mOsm/KG (280-301)
[2022-04-12 14:22] LABS: Bacteria 0 SEEN /hpf (None Seen); Mucous, Urine 0 SEEN /hpf (<or=2+); Squamous Epithelial Cells - UA 0 SEEN /hpf (0-5); White Blood Cells 0 SEEN /hpf (0-5)
[2022-04-12 14:23] LABS: Color, Urine Yellow (Yellow); Glucose, Dipstick Normal (Normal); Ketone-Dipstick Negative (Negative); Leukocyte Esterase-Dipstick Negative /ul (Negative); Nitrite-Dipstick Negative (Negative); Occult Blood-Urine 50 /ul (Negative); Protein-Dipstick 30 mg/dl (Negative); Urine Bilirubin Dipstick Negative (Negative); Urine Clarity Sl. Cloudy (Clear); Urine Urobilinogen Normal (Normal)
[2022-04-12 14:32] LABS: Osmolality, Urine 600 mOsm/KG
[2022-04-12 14:34] LABS: Red Blood Cells-Urine 0-5 SEEN /hpf (0-5)
[2022-04-12 14:35] LABS: Urine Sodium 60 mmol/L (Not Establ.)
--- NOTE | 2022-04-12 15:43 | CASEMGMT ---
Social Work Completed HCPOA and LW paperwork for pt. Original and copy provided to pt. Copies placed on chart. Ariella Prater, WIND OPERATIONS SUPERVISOR BOILERS INSPECTOR
[2022-04-12 19:30] VITALS: TEMP 37.8
[2022-04-12] MEDS: Doxazosin 1 MG Tablet 2 MG PO (20:19)
[2022-04-12 21:30] VITALS: BP 140/71; PULSE 88; RESP 18; TEMP 36.7; O2SAT 98
[2022-04-13 08:32] VITALS: BP 116/70; PULSE 77; RESP 17; TEMP 37.5; O2SAT 94
[2022-04-13] MEDS: Potassium Chloride Oral Tablet 20 MEQ PO (08:51)
[2022-04-13] MEDS: APIXABAN 2.5 MG TABLET PO ×2 (08:51→20:15)
[2022-04-13 09:17] LABS: Anion Gap 8 (5-15); BUN 17 mg/dL (7-18); BUN/Creat Ratio 22.5 RATIO (10-20); Calcium,Total 8.7 mg/dL (8.5-10.1); Chloride 92 mmol/L (98-107); Creatinine, Serum 0.76 mg/dL (0.70-1.30); EST Glomerular Filtration Rate 111 mL/min (>60); Est Glom Filt Rate - Afr Amer 134 mL/min (>60); Estimated Creatinine Clearance 92.66 ml/min; Glucose 113 mg/dL (74-106); Sodium Level 126 mmol/L (136-145)
[2022-04-13 14:28] VITALS: O2SAT 97
[2022-04-13] MEDS: Acetaminophen 500 MG Tablet 1000 MG PO (18:33)
[2022-04-13 19:59] VITALS: BP 113/59; PULSE 96; RESP 17; TEMP 37.7
[2022-04-13 20:00] VITALS: PULSE 96; RESP 17; O2SAT 96
[2022-04-13] MEDS: Doxazosin 1 MG Tablet 2 MG PO (20:15)
[2022-04-13] MEDS: Sodium Chloride 1 GM Tablet PO (20:16)
[2022-04-13 21:00] VITALS: TEMP 36.8
[2022-04-14] MEDS: Sodium Chloride 1 GM Tablet PO ×3 (06:00→20:28)
[2022-04-14 07:59] VITALS: BP 120/70; PULSE 93; RESP 17; TEMP 36.9; O2SAT 95
[2022-04-14] MEDS: APIXABAN 2.5 MG TABLET PO ×2 (08:31→20:28)
[2022-04-14] MEDS: Potassium Chloride Oral Tablet 20 MEQ PO (08:31)
[2022-04-14] MEDS: Acetaminophen 500 MG Tablet 1000 MG PO (18:50)
[2022-04-14] MEDS: Doxazosin 1 MG Tablet 2 MG PO (20:28)
[2022-04-14 20:38] VITALS: BP 124/52; PULSE 96; RESP 18; TEMP 36.9; O2SAT 97
[2022-04-15] MEDS: Sodium Chloride 1 GM Tablet PO ×3 (05:06→20:54)
[2022-04-15] MEDS: APIXABAN 2.5 MG TABLET PO ×2 (08:43→20:54)
[2022-04-15] MEDS: Potassium Chloride Oral Tablet 20 MEQ PO (08:43)
[2022-04-15] MEDS: Acetaminophen 500 MG Tablet 1000 MG PO ×2 (08:51→20:57)
[2022-04-15 08:52] VITALS: BP 117/64; PULSE 82; RESP 17; TEMP 36.4; O2SAT 99
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
--- NOTE | 2022-04-15 13:20 | CASEMGMT ---
Social Work Team meeting held. Patient and patient daughter present. Patient progressing in therapy. Dr. Rousseau recommending for patient to continue with stay for medical management. Plan is for patient to discharge to home with spouse. Patient spouse works outside of the home. This social media intern communicating that insurance update is due on 04/15/2022 with no guarantee of continued stay approval. Patient voiced understanding. Patient reports to need a quad cane at time of discharge and to have assess to a front wheeled walker. Patient/patient family denies any other questions concerns. Patient to continue with further care and treatment on the Rehab Unit until time of discharge. Will continue to follow. Genie FERREIRA, AUSTEN
[2022-04-15 14:31] LABS: Anion Gap 7 (5-15); BUN 23 mg/dL (7-18); Calcium,Total 8.8 mg/dL (8.5-10.1); Chloride 98 mmol/L (98-107); Creatinine, Serum 0.96 mg/dL (0.70-1.30); EST Glomerular Filtration Rate 84 mL/min (>60); Est Glom Filt Rate - Afr Amer 102 mL/min (>60); Estimated Creatinine Clearance 73.36 ml/min; Glucose 154 mg/dL (74-106); Potassium 4.1 mmol/L (3.5-5.1); Sodium Level 132 mmol/L (136-145)
[2022-04-15 19:17] VITALS: BP 124/65; PULSE 90; RESP 18; TEMP 37.1; O2SAT 97
[2022-04-15] MEDS: Doxazosin 1 MG Tablet 2 MG PO (20:53)
--- NOTE | 2022-04-15 23:28 | NURSING ---
Offered new prn order for Ultram with HS meds, pt declined. Pt request one Tylenol 500 mg.
--- NOTE | 2022-04-16 04:17 | NURSING ---
Reviewed and agree with ZIPPER CUTTER documentation and assessment charting.
[2022-04-16] MEDS: Sodium Chloride 1 GM Tablet PO ×3 (06:24→20:36)
[2022-04-16] MEDS: Potassium Chloride Oral Tablet 20 MEQ PO (07:37)
[2022-04-16] MEDS: Acetaminophen 500 MG Tablet 1000 MG PO (07:40)
[2022-04-16] MEDS: APIXABAN 2.5 MG TABLET PO ×2 (08:45→20:36)
[2022-04-16] MEDS: Senna/Docusate Sodium 1 Tablet 2 TABLET PO ×2 (08:45→20:36)
[2022-04-16] MEDS: Polyethylene Glycol 3350 17 GM PACKET PO (08:46)
[2022-04-16 10:00] VITALS: BP 116/75; PULSE 70; RESP 16; TEMP 36.7; O2SAT 96
--- NOTE | 2022-04-16 15:58 | CHAPLAIN ---
Type of Pastoral Visit ___ Initial Visit _x__ Follow-up Visit ___ On-call Visit ___ General Patient Visit ___ Spiritual Assessment ___ Family Conference ___ Bereavement ___ Rapid Response ___ Code Blue ___ Other (describe below) Pastoral Care Referral From _x__ Patient ___ Family ___ Nurse ___ Physician ___ Automatic Chief ___ Linux Developer ___ Other (describe below) Sacrament/Intervention _x__ Active listening ___ Anointing ___ Judaism ___ Bereavement ___ Communion _x__ Claudia exploration ___ ___ Life review _x__ Prayer ___ Reconciliation ___ Sacrament of Sick _x__ Supportive presence ___ Wedding ___ Other (describe below) Pastoral Comments when patient saw this salesperson trailers and motor homes he asked him to stop in and visit with him today; sat in pt's room and pt begins asking several Bible questions; pt directs the conversation; this salesperson trailers and motor homes did ask pt how he is feeling, how recovery is progressing, and any particular needs; pt appears to be much better physically and is sharp mentally; pt is deeply oriented to claudia; pt welcomes this salesperson trailers and motor homes to come for more visits as able; prayer
[2022-04-16 19:36] VITALS: BP 122/66; PULSE 85; RESP 16; TEMP 37.3; O2SAT 99
[2022-04-16] MEDS: Doxazosin 1 MG Tablet 2 MG PO (20:36)
[2022-04-17] MEDS: Sodium Chloride 1 GM Tablet PO ×3 (06:17→19:43)
[2022-04-17 08:16] VITALS: BP 126/64; PULSE 89; RESP 16; TEMP 37.2; O2SAT 96
[2022-04-17] MEDS: Potassium Chloride Oral Tablet 20 MEQ PO (08:29)
[2022-04-17] MEDS: APIXABAN 2.5 MG TABLET PO ×2 (08:29→19:43)
[2022-04-17] MEDS: Senna/Docusate Sodium 1 Tablet 2 TABLET PO ×2 (08:29→19:44)
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
[2022-04-17] MEDS: Acetaminophen 500 MG Tablet 1000 MG PO ×2 (12:12→20:12)
[2022-04-17 19:23] VITALS: PULSE 89; RESP 16; O2SAT 98
[2022-04-17] MEDS: Doxazosin 1 MG Tablet 2 MG PO (19:44)
[2022-04-17 20:38] VITALS: BP 136/58; PULSE 93; RESP 18; TEMP 37.2; O2SAT 96
--- NOTE | 2022-04-17 23:51 | NURSING ---
Henna warning issued at 2054 and pt moved into hallway in wheelchair till warning lifted at 2129.
[2022-04-18] MEDS: Sodium Chloride 1 GM Tablet PO ×3 (05:10→20:16)
[2022-04-18] MEDS: Acetaminophen 500 MG Tablet 1000 MG PO ×2 (05:21→20:15)
[2022-04-18 07:38] VITALS: BP 134/80; PULSE 92; RESP 16; TEMP 36.7; O2SAT 96
[2022-04-18] MEDS: APIXABAN 2.5 MG TABLET PO ×2 (08:14→20:14)
[2022-04-18] MEDS: Potassium Chloride Oral Tablet 20 MEQ PO (08:14)
[2022-04-18] MEDS: Senna/Docusate Sodium 1 Tablet 2 TABLET PO (08:14)
--- NOTE | 2022-04-18 14:00 | CASEMGMT ---
Addendum entered by Ariella Prater 04/19/22 15:38: Followed up with pt on DC date. Pt states he has secured transportation home att 1500 on 04/24 and requesting to DC 04/24 instead of 04/25. SW and pt both spoke with RN to confirm DC date with staple removal. IDT aware and agreeable to DC 04/24 Plan: DC home 04/24 Original Note: Social Work IDT discussed setting DC date for pt as insurance NRD 04/23 and pt is progressing well. would like to do repeat labs on 04/22 and await results. SW spoke with pt about setting DC date. IDT recommending outpatient PT. Pt agrees and prefers [facility]. Pt contacted dtr while SW was present to set DC date. Dtr is getting procedure done in [place] on 04/24 and requesting DC 04/25 so dtr and can be home with pt. SW agreed. currently working and pt will finalize with then notify SW/nursing to confirm. Pt also needs a small base quad cane. Referral made to [facility]. Plan: Tentative DC 04/25, [facility], quad cane Ariella Prater, TRANSFORMATION SPECIALIST APPEALS EXAMINER
[2022-04-18 19:53] VITALS: BP 120/62; PULSE 97; RESP 16; TEMP 37.7; O2SAT 98
[2022-04-18 20:00] VITALS: PULSE 97; RESP 16; O2SAT 98
[2022-04-18] MEDS: Doxazosin 1 MG Tablet 2 MG PO (20:14)
[2022-04-19 06:15] LABS: Anion Gap 5 (5-15); BUN 23 mg/dL (7-18); BUN/Creat Ratio 28.3 RATIO (10-20); Calcium,Total 8.9 mg/dL (8.5-10.1); Chloride 105 mmol/L (98-107); Creatinine, Serum 0.81 mg/dL (0.70-1.30); EST Glomerular Filtration Rate 102 mL/min (>60); Est Glom Filt Rate - Afr Amer 123 mL/min (>60); Estimated Creatinine Clearance 86.94 ml/min; Glucose 90 mg/dL (74-106); Potassium 4.1 mmol/L (3.5-5.1); Sodium Level 139 mmol/L (136-145)
[2022-04-19] MEDS: Sodium Chloride 1 GM Tablet PO ×3 (06:15→19:34)
[2022-04-19 07:49] VITALS: BP 122/66; PULSE 91; RESP 16; TEMP 37.2; O2SAT 96
[2022-04-19] MEDS: APIXABAN 2.5 MG TABLET PO ×2 (07:51→19:34)
[2022-04-19] MEDS: Potassium Chloride Oral Tablet 20 MEQ PO (07:52)
[2022-04-19] MEDS: Senna/Docusate Sodium 1 Tablet 2 TABLET PO ×2 (07:52→19:34)
--- NOTE | 2022-04-19 15:37 | NURSING ---
Spoke with Fina at Dr Trivedi's office. ok to remove tone Saturday 04/21. pt will f/u in office on 05/01
[2022-04-19] MEDS: Doxazosin 1 MG Tablet 2 MG PO (19:34)
[2022-04-19] MEDS: Acetaminophen 500 MG Tablet 1000 MG PO (19:45)
[2022-04-19 19:48] VITALS: BP 123/54; PULSE 95; RESP 15; TEMP 37.7; O2SAT 97
[2022-04-20] MEDS: Sodium Chloride 1 GM Tablet PO ×2 (05:53→21:15)
[2022-04-20 07:40] VITALS: BP 136/68; PULSE 76; RESP 16; TEMP 36.9; O2SAT 98
[2022-04-20 07:53] LABS: Anion Gap 4 (5-15); BUN 24 mg/dL (7-18); BUN/Creat Ratio 30.3 RATIO (10-20); Chloride 105 mmol/L (98-107); Creatinine, Serum 0.79 mg/dL (0.70-1.30); EST Glomerular Filtration Rate 105 mL/min (>60); Est Glom Filt Rate - Afr Amer 127 mL/min (>60); Estimated Creatinine Clearance 87.76 ml/min; Glucose 103 mg/dL (74-106); Potassium 3.9 mmol/L (3.5-5.1); Sodium Level 141 mmol/L (136-145)
[2022-04-20] MEDS: Senna/Docusate Sodium 1 Tablet 2 TABLET PO ×2 (08:04→21:15)
[2022-04-20] MEDS: APIXABAN 2.5 MG TABLET PO ×2 (08:05→21:16)
[2022-04-20] MEDS: Potassium Chloride Oral Tablet 20 MEQ PO (08:05)
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
[2022-04-20 19:13] VITALS: BP 128/70; PULSE 87; RESP 18; TEMP 37.6; O2SAT 98
[2022-04-20] MEDS: Doxazosin 1 MG Tablet 2 MG PO (21:15)
--- NOTE | 2022-04-21 02:37 | NURSING ---
REVIEWED AND AGREE WITH MILK TANKER DRIVER'S FUNCTIONAL ASSESSMENT AND HANDOFF CHARTING.
[2022-04-21 06:01] LABS: Anion Gap 6 (5-15); BUN 27 mg/dL (7-18); Chloride 107 mmol/L (98-107); Creatinine, Serum 0.87 mg/dL (0.70-1.30); EST Glomerular Filtration Rate 94 mL/min (>60); Est Glom Filt Rate - Afr Amer 114 mL/min (>60); Estimated Creatinine Clearance 79.69 ml/min; Glucose 100 mg/dL (74-106); Sodium Level 141 mmol/L (136-145)
[2022-04-21 07:03] VITALS: BP 113/77; PULSE 81; RESP 20; TEMP 37.1; O2SAT 96
[2022-04-21] MEDS: Potassium Chloride Oral Tablet 20 MEQ PO (08:14)
[2022-04-21] MEDS: APIXABAN 2.5 MG TABLET PO ×2 (08:14→20:06)
[2022-04-21] MEDS: Senna/Docusate Sodium 1 Tablet 2 TABLET PO ×2 (08:14→20:05)
[2022-04-21] MEDS: Sodium Chloride 1 GM Tablet PO ×2 (08:15→20:04)
[2022-04-21 19:01] VITALS: BP 130/78; PULSE 95; RESP 16; TEMP 37.2; O2SAT 98
[2022-04-21] MEDS: Doxazosin 1 MG Tablet 2 MG PO (20:05)
--- NOTE | 2022-04-21 20:26 | NURSING ---
Pt declines Tylenol this HS, stating pain is not keeping him up at this time, his bladder is what is waking him during the night.
--- NOTE | 2022-04-22 02:03 | NURSING ---
REVIEWED AND AGREE WITH POLICE CHIEF DEPUTY'S FUNCTIONAL ASSESSMENT AND HANDOFF CHARTING.
[2022-04-22 05:53] LABS: Hematocrit 36.1 % (40-54); Hemoglobin 11.3 g/dL (13.0-16.5)
[2022-04-22 06:16] LABS: Anion Gap 3 (5-15); BUN 32 mg/dL (7-18); BUN/Creat Ratio 34.7 RATIO (10-20); Calcium,Total 9.4 mg/dL (8.5-10.1); Chloride 107 mmol/L (98-107); Creatinine, Serum 0.92 mg/dL (0.70-1.30); EST Glomerular Filtration Rate 88 mL/min (>60); Est Glom Filt Rate - Afr Amer 107 mL/min (>60); Estimated Creatinine Clearance 75.36 ml/min; Glucose 99 mg/dL (74-106); Potassium 4.1 mmol/L (3.5-5.1); Sodium Level 140 mmol/L (136-145)
[2022-04-22 07:03] VITALS: BP 112/72; PULSE 84; RESP 20; TEMP 36.7
[2022-04-22 07:21] LABS: Hemoglobin A1c 4.7 % (3.8-5.6)
[2022-04-22] MEDS: Potassium Chloride Oral Tablet 20 MEQ PO (07:44)
[2022-04-22] MEDS: Senna/Docusate Sodium 1 Tablet 2 TABLET PO ×2 (07:44→20:11)
[2022-04-22] MEDS: Sodium Chloride 1 GM Tablet PO ×2 (07:44→20:11)
[2022-04-22] MEDS: APIXABAN 2.5 MG TABLET PO ×2 (07:44→20:11)
--- NOTE | 2022-04-22 13:38 | CASEMGMT ---
Social Work IDT met with patient, and mother for Team meeting. Discussed patient's progress in PT/OT/SN. Confirmed DC 04/24 home with and mother assistance. Confirmed [facility] and quad cane. No other issues noted. Ariella Prater, BUILDING CONSTRUCTION PROFESSOR LITHOGRAPHING MACHINE OPERATOR
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
[2022-04-22 19:28] VITALS: BP 133/73; PULSE 91; RESP 16; TEMP 37.2; O2SAT 98
[2022-04-22] MEDS: Doxazosin 1 MG Tablet 2 MG PO (20:11)
[2022-04-22] MEDS: Acetaminophen 500 MG Tablet 1000 MG PO (20:16)
[2022-04-22 22:00] VITALS: PULSE 96; RESP 16; O2SAT 98
[2022-04-23] MEDS: Senna/Docusate Sodium 1 Tablet 2 TABLET PO ×2 (07:44→21:00)
[2022-04-23] MEDS: Potassium Chloride Oral Tablet 20 MEQ PO (07:44)
[2022-04-23] MEDS: APIXABAN 2.5 MG TABLET PO ×2 (07:44→21:00)
[2022-04-23] MEDS: Sodium Chloride 1 GM Tablet PO ×2 (07:44→21:00)
[2022-04-23 07:57] VITALS: BP 119/74; PULSE 75; RESP 16; TEMP 36.6; O2SAT 99
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
[2022-04-23 19:12] VITALS: BP 122/74; PULSE 70; RESP 16; TEMP 36.5; O2SAT 98
[2022-04-23] MEDS: Doxazosin 1 MG Tablet 2 MG PO (21:00)
[2022-04-23 22:00] VITALS: PULSE 75; RESP 16; O2SAT 98
[2022-04-24 07:33] VITALS: BP 123/82; PULSE 87; RESP 17; TEMP 37.2; O2SAT 97
[2022-04-24] MEDS: Potassium Chloride Oral Tablet 20 MEQ PO (07:45)
[2022-04-24] MEDS: APIXABAN 2.5 MG TABLET PO (07:45)
[2022-04-24] MEDS: Senna/Docusate Sodium 1 Tablet 2 TABLET PO (07:46)
[2022-04-24] MEDS: Sodium Chloride 1 GM Tablet PO (07:46)
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
--- NOTE | 2022-04-24 15:03 | NURSING ---
discharged home with family. discharge instructions, medications and appointments reviewed with pt. denies questions or concerns
[2022-04-24 15:05] VITALS: BP 123/82; PULSE 87; RESP 17; TEMP 37.2; O2SAT 97
== END 2022-04-24 15:10 | disposition home or self-care (01) | DRG 560 ==
PROVIDERS: Internal Medicine; Admitting Provider Family Medicine Geriatric Medicine; PCP Internal Medicine; Visit Provider Family Medicine Geriatric Medicine
DX: S72.001D Fracture of unspecified part of neck of right femur, subsequent encounter for closed fracture with routine healing (principal); E22.2 Syndrome of inappropriate secretion of antidiuretic hormone; D64.9 Anemia, unspecified; S06.0X0D Concussion without loss of consciousness, subsequent encounter; Z79.01 Long term (current) use of anticoagulants; S02.40ED Zygomatic fracture, right side, subsequent encounter for fracture with routine healing; S32.591D Other specified fracture of right pubis, subsequent encounter for fracture with routine healing; N40.1 Benign prostatic hyperplasia with lower urinary tract symptoms; R33.8 Other retention of urine; S42.001D Fracture of unspecified part of right clavicle, subsequent encounter for fracture with routine healing; S32.511D Fracture of superior rim of right pubis, subsequent encounter for fracture with routine healing; Z79.899 Other long term (current) drug therapy; V19.9XXD Pedal cyclist (driver) (passenger) injured in unspecified traffic accident, subsequent encounter; S32.10XD Unspecified fracture of sacrum, subsequent encounter for fracture with routine healing
CPT/HCPCS: 36415; 80048; 80053; 81001; 83036; 83930; 83935; 84300; 85014; 85018; 85025; 92523; 97110; 97116; 97161; 97166; 97530; 97535; 97802; 97803; 99251; A4216; G0463

== ENCOUNTER 2022-06-05 18:00 | Outpatient (RCR) | payer OTHER, SELFPAY ==
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
--- NOTE | 2022-09-16 08:39 | HP.PT.NRP ---
MIGUE PURDY was seen in my office for initial evaluation on 05/01/22. The following Plan of Care was established for this patient: Initial Frequency: 3x /Week Initial Duration: 4 Weeks Patient/Client Instruction: Educate patient on: Condition, Plan of Care For the Purpose of:: To decrease pain, To increase ROM, To improve nutrient delivery to tissue, To increase oxygenation perfusion, To improve muscle performance and motor function, To improve ability to perform ADL's, To increase tolerance to activity/condition/position, To improve performance and independence with ADL's, To decrease level of supervision to perform tasks, To improve ability of physical actions for home/community/work/leisure, To improve gait and locomotor functions, To improve health of tissue, To decrease soft tissue restriction, To increase flexibility/ROM, To improve balance Therapeutic Exercise to Include: Strength training, Power training, Endurance training, Balance training, Body mechanics, Postural training, Flexibilty training, Gait and locomotor training, Neuromotor development, Passive ROM, Active ROM, Dynamic Lumbar Stabilization, Scapular Strength/Stabilization For the Purpose of:: To decrease pain, To decrease swelling/inflammation, To increase ROM, To improve nutrient delivery to tissue, To increase oxygenation perfusion, To improve muscle performance and motor function, To improve ability to perform ADL's, To increase tolerance to activity/condition/position, To improve performance and independence with ADL's, To decrease level of supervision to perform tasks, To improve ability of physical actions for home/community/work/leisure, To improve gait and locomotor functions, To improve health of tissue, To decrease soft tissue restriction, To increase flexibility/ROM, To improve endurance, To improve balance, To improve safety with gait Functional Training to Include: Gait training For the Purpose of:: To improve gait and locomotor functions, To improve safety with gait Manual Therapy Techniques to Include: Passive ROM, Soft tissue mobilization For the Purpose of:: To decrease pain, To decrease swelling/inflammation, To increase ROM, To improve nutrient delivery to tissue, To improve muscle performance and motor function, To improve ability to perform ADL's, To increase tolerance to activity/condition/position, To improve health of tissue, To decrease soft tissue restriction, To increase flexibility/ROM This patient was last seen in our office 06/05/22. Pertinent comments regarding their Physical therapy will appear below: FRANC[facility] PT. Pt was to call in if he needed additional PT and has not done so and therefore will be discharged at this time. At this point I will be discontinuing this patient from physical therapy. I would be happy to see this patient again in the future if found appropriate by the physician. Thank you! KATHE Benson Balance/Gait/Functional tests - Balance/Special Test Scores Lower Extremity Functional Score: 56
== END 2022-06-05 19:00 | disposition home or self-care (01) ==
LOC: PT 18:00
PROVIDERS: PCP Internal Medicine; Referring Provider Internal Medicine; Visit Provider Internal Medicine
DX: T14.90XD Injury, unspecified, subsequent encounter (principal); X58.XXXD Exposure to other specified factors, subsequent encounter; R53.81 Other malaise
CPT/HCPCS: 97110; 97162; 97530

== ENCOUNTER → 2022-06-22 | Outpatient (CLI) | payer SELFPAY ==
--- NOTE | 2022-06-22 07:48 | US_ITS ---
STUDY: THYROID ULTRASOUND REASON FOR EXAM: Male, 62 years old. THYROID NODULE TECHNIQUE: Ultrasound evaluation of the thyroid was performed with real-time and static barron-scale imaging. COMPARISON: None. FINDINGS: RIGHT LOBE: The right lobe of the thyroid gland measures 4.5 x 1.4 x 1.1 cm. There is a homogeneous echotexture. There is a well-circumscribed 0.4 x 0.2 x 0.3 cm cystic nodule within the mid pole consistent with a colloid cyst.. LEFT LOBE: The left lobe of the thyroid gland measures 4.6 x 1.5 x 1.6 cm. There is a homogeneous echotexture. There is a solid well-circumscribed 1.7 x 1.2 x 1.2 centimeter hyperechoic with a hypoechoic margin nodule within the lower pole. There is a 0.4 x 0.1 x 0.3 cm cystic-appearing nodule within the anterior left lobe as well. ISTHMUS: The isthmus measures 0.2 centimeters. The regional lymph nodes are normal. US/Thyroid IMPRESSION: Solid 1.7 x 1.2 x 1.2 cm nodule within the left lobe of the gland. Enlarged thyroid gland. Electronically Signed: Eleonora Kelly MD at 16:49 EDT ,
== END | disposition home or self-care (01) ==
PROVIDERS: PCP Internal Medicine; Visit Provider Internal Medicine
DX: E04.1 Nontoxic single thyroid nodule (principal)
CPT/HCPCS: 76536

== ENCOUNTER → 2022-07-10 | Outpatient (CLI) | payer SELFPAY ==
[2022-07-10 10:59] LABS: PSA,Total- Diagnostic 7.06 ng/mL (0.0-4.0)
== END | disposition home or self-care (01) ==
PROVIDERS: PCP Internal Medicine; Referring Provider Urology; Visit Provider Urology
DX: N40.1 Benign prostatic hyperplasia with lower urinary tract symptoms (principal)
CPT/HCPCS: 36415; 84153

== ENCOUNTER → 2022-07-23 | Outpatient (CLI) | payer SELFPAY ==
--- NOTE | 2022-07-22 | FLU_PTH ---
PATIENT: MIGUE PURDY LOC: [facility] U#:[id number] AGE/SX: 62/M ROOM: RE07/23/[address]: Dr. Ezekiel Robertson MD : 1960 BED: DIS: 07/23/2022 SPEC #: [id number] RECD: 07/23/22 11:58 STATUS: HARPREET REQ #: [id number] EVERARDO: 07/22/22 00:[address]: Ezekiel Robertson DEPT: CYTOLOGY RECD BY: Amie Gaitan ENTERED: 07/23/22 13:23 SP TYPE: Fluid OTHR DR: Dr. Karen Espinal, DO Tissues: Thyroid gland, NOS Procedures: Special Stain Group II Surgery Specimen Level IV Cytospin Fluid HEADER OPERATION: Fine needle aspiration left thyroid PRE-OP DIAGNOSIS: Multinodular goiter TISSUE SUBMITTED: A ? FNA of left thyroid fluid, B - FNA of left thyroid x12 slides DIAGNOSIS CYTOLOGY A. Fine needle aspiration, left thyroid nodule (cytospin and cell block): Negative for malignant cells. See comment. B. Fine needle aspiration, left thyroid nodule (smears): Benign, consistent with benign follicular/colloid nodule ([place] Category II). See comment. AM:josefa 07/24/2022 COMMENT A. The specimen primarily contains blood. Clinical correlation is suggested. B. The [place] System for thyroid diagnostic categorization was used in the evaluation of this case. The specimen is adequate for evaluation. CYTOLOGY STUDY Slides are reviewed. CYTOLOGY GROSS A - Received is 25 ml of dark brown cloudy fluid labeled with the patient's name and and designated per the requisition as left thyroid. Submitted for cytology preparation including cell block. B - Received are 12 smears labeled with the patient's name and designated per the requisition as left thyroid. Submitted for staining. / josefa 07/23/2022 TC:5 CPT: 13638 x2, 17301
== END | disposition home or self-care (01) ==
PROVIDERS: PCP Internal Medicine; Visit Provider Surgery
DX: E04.9 Nontoxic goiter, unspecified (principal)
CPT/HCPCS: 88108; 88305; 88313

== ENCOUNTER → 2023-03-25 | Outpatient (CLI) | payer OTHER, SELFPAY ==
--- NOTE | 2023-03-25 08:10 | BD_ITS ---
STUDY: DUAL ENERGY X-RAY ABSORPTIOMETRY / DXA REASON FOR EXAM: Male, 62 years old. S72.001A -- fracture of neck of right femur TECHNIQUE: Bone Mineral Density (BMD) measurements of lumbar spine and left hip were obtained. COMPARISON: None. FINDINGS: Lumbar Spine (L1-L4): g/cm2 (0.668) / T-score (-3.8) / Z-score (-3.1) Findings are suggestive of osteoporosis with a high fracture risk. Left Femur Total: g/cm2 (0.684) / T-score (-2.3) / Z-score (-1.8) Left Femoral Neck: g/cm2 (0.528) / T-score (-3.0) / Z-score (-1.9) . BD/Dexa Bone Density Study IMPRESSION: The patient is considered osteoporotic as outlined below according to World Wes Organization (WHO) criteria with a high fracture risk. Reference Information: The T-score is the number of standard deviations above or below the standard which is normal for young adults at their peak bone mineral density. The World Health Organization (WHO) interprets the T-scores as follows: Above -1 Normal bone density Between -1 and -2.5 Osteopenia Equal to / or below -2.5 Osteoporosis As a practical clinical guideline, osteopenia may be graded as follows: Mild -1 through -1.5 Moderate -1.6 through -2.0 Severe -2.1 through -2.4 The Z-score is the number of standard deviations above or below age-matched controls. A Z-score of less than -1.5 would be considered abnormal. References: 1. NIH Osteoporosis and Related Bone Diseases www osteo.org 2. International Society for Clinical Densitometry www iscd.org 3. National Osteoporosis Foundation www nof.org Electronically Signed: Qamar Morrison MD at 15:46 EDT ,
== END | disposition home or self-care (01) ==
LOC: OPBD 07:55
PROVIDERS: PCP Internal Medicine; Referring Provider Internal Medicine; Visit Provider Internal Medicine
DX: S72.001A Fracture of unspecified part of neck of right femur, initial encounter for closed fracture (principal)
CPT/HCPCS: 77080

== ENCOUNTER → 2023-06-21 | Outpatient (CLI) | payer OTHER, SELFPAY ==
--- NOTE | 2023-06-21 10:20 | US_ITS ---
INDICATION: thyroid nodule EXAMINATION: Ultrasound US Thyroid (eg thyroid, parathyroid, parotid) TECHNIQUE: Santana scale and color doppler imaging was performed of the thyroid gland. COMPARISON: Prior study dated: 06/22/2022 FINDINGS: RIGHT THYROID LOBE: 4.2 x 1.5 x 1.4 cm. Parenchyma: The gland echotexture is homogenous. Thyroid vascularity is normal. LEFT THYROID LOBE: 4.5 x 1.5 x 1.4 cm. Parenchyma: The gland echotexture is homogenous. Thyroid vascularity is normal. ISTHMUS: 0.1 cm in maximum AP dimension. Estimated total number of nodules greater than equal to 1 cm: 1. Clerical Transcriber nodules are described as follows: 1. Location: Left mid Size: 0.5 x 0.3 x 0.4 cm. Nodule characteristics: Composition: Solid or almost completely solid (2). Echogenicity: Hypoechoic (2). Shape: Wider than tall (0). Margins: Smooth (0). Echogenic Foci: None (0). ACR TI-RADS total points: 4. ACR TI-RADS category: TR 4 2. Location: Left mid/inferior Size: 1.7 x 1.4 x 1.3 cm. Nodule characteristics: Composition: Solid or almost completely solid (2). Echogenicity: Isoechoic (1). Shape: Wider than tall (0). Margins: Smooth (0). Echogenic Foci: None (0). ACR TI-RADS total points: 3. ACR TI-RADS category: 3 3. Location: Left mid Size: 0.4 x 0.3 x 0.2 cm. Nodule characteristics: Composition: Solid or almost completely solid (2). Echogenicity: Hypoechoic (2). Shape: Wider than tall (0). Margins: Smooth (0). Echogenic Foci: None (0). ACR TI-RADS total points: 4. ACR TI-RADS category: 4 4. Location: Left inferior Size: 0.4 x 0.3 x 0.2 cm. Nodule characteristics: Composition: Cystic or almost completely cystic (0). ACR TI-RADS total points: 0. ACR TI-RADS category: 1. LYMPH NODES: No lymphadenopathy is seen in the tissue surrounding the thyroid gland. US/Thyroid IMPRESSION: Multinodular thyroid gland. The dominant nodule is seen on the left mid aspect measuring up to 1.7 cm, TR 3. With this size and appearance, follow-up recommended in one year. ACR TI-RADS RECOMMENDATION REFERENCE: Ultrasound-guided fine-needle aspiration, follow-up ultrasound, no further follow-up. *TR 1 (0 points) and TR 2 (2 points): No FNA or follow-up. *TR 3 (3 points): FNA if more than or equal to 2.5 cm in maximum dimension. Follow-up ultrasound in 1, 3, and 5 years if 1.5 to 2.4 cm in maximum dimension. *TR 4 (4-6 points): FNA if more than or equal to 1.5 cm in maximum dimension. Follow-up ultrasound in 1, 2, 3, and 5 years if 1 to 1.4 cm in maximum dimension. *TR 5 (more than or equal to 7 points): FNA if more than or equal to 1 cm in maximum dimension. Follow-up ultrasound every year for 5 years if 0.5 to 0.9 cm in maximum dimension. *TR 3, TR 4, or TR 5 nodules that are below the size threshold for follow-up receive no follow-up. Electronically Signed: Kyle Ashby MD at 1:27 EDT ,
== END | disposition home or self-care (01) ==
LOC: US 10:17
PROVIDERS: PCP Internal Medicine; Referring Provider Internal Medicine; Visit Provider Internal Medicine
DX: E04.1 Nontoxic single thyroid nodule (principal)
CPT/HCPCS: 76536

== ENCOUNTER → 2023-07-03 | Outpatient (CLI) | payer OTHER, SELFPAY ==
[2023-07-03 10:56] LABS: PSA,Total- Diagnostic 6.56 ng/mL (0.0-4.0)
== END | disposition home or self-care (01) ==
LOC: MTLAB 07:05
PROVIDERS: PCP Internal Medicine; Referring Provider Registered Nurse; Visit Provider Registered Nurse
DX: R97.20 Elevated prostate specific antigen [PSA] (principal)
CPT/HCPCS: 36415; 84153

== ENCOUNTER → 2024-06-05 | Outpatient (CLI) | payer MEDICARE, SELFPAY ==
--- NOTE | 2024-06-05 08:30 | US_ITS ---
INDICATION: SINGLE THYROID NODULE EXAMINATION: Ultrasound US Thyroid (eg thyroid, parathyroid, parotid) TECHNIQUE: Santana scale and color doppler imaging was performed of the thyroid gland. COMPARISON: Prior study dated: 06/21/2023 FINDINGS: RIGHT THYROID LOBE: 4.6 x 1.3 x 1.7 cm. Previously 4.2 x 1.5 x 1.4 cm. Parenchyma: The gland echotexture is homogenous. Thyroid vascularity is normal. LEFT THYROID LOBE: 4.9 x 1.4 x 1.5 cm. Previously 4.5 x 1.5 x 1.4 cm. Parenchyma: The gland echotexture is homogenous. Thyroid vascularity is normal. ISTHMUS: 0.2 cm in maximum AP dimension. Previously 0.1 cm. Estimated total number of nodules greater than equal to 1 cm: 1. Cotton Cleaner nodules are described as follows: 1. Location: Left mid Size: 0.4 x 0.3 x 0.4 cm, volume 0.02 mL. Previously: 0.4 x 0.3 x 0.2 cm. Nodule characteristics: Composition: Solid or almost completely solid (2). Echogenicity: Hypoechoic (2). Shape: Wider than tall (0). Margins: Smooth (0). Echogenic Foci: None (0). ACR TI-RADS total points: 4. Previous 4. ACR TI-RADS category: 4. Previous 4 2. Location: Left mid Size: 1.7 x 1.2 x 1.3 cm, volume 1.4 mL. Previously: 1.7 x 1.4 x 1.3 cm. Nodule characteristics: Composition: Solid or almost completely solid (2). Echogenicity: Isoechoic (1). Shape: Wider than tall (0). Margins: Smooth (0). Echogenic Foci: None (0). ACR TI-RADS total points: 3. Previous 3. ACR TI-RADS category: 3. Previous 3 3. Location: Left inferior Size: 0.3 x 0.3 x 0.3 cm, volume 0.01 mL. Previously: 0.4 x 0.3 x 0.2 cm,. Nodule characteristics: Composition: Cystic or almost completely cystic (0). ACR TI-RADS total points: 0. Previous 0. ACR TI-RADS category: 1. Previous 1 LYMPH NODES: No lymphadenopathy is seen in the tissue surrounding the thyroid gland. US/Thyroid IMPRESSION: Multiple thyroid nodules are again identified. The dominant nodule measures up to 1.7 cm at the midpole of the left lobe, TR 3. This is unchanged. Additional follow-up recommended in 2 years. ACR TI-RADS RECOMMENDATION REFERENCE: Ultrasound-guided fine-needle aspiration, follow-up ultrasound, no further follow-up. *TR 1 (0 points) and TR 2 (2 points): No FNA or follow-up. *TR 3 (3 points): FNA if more than or equal to 2.5 cm in maximum dimension. Follow-up ultrasound in 1, 3, and 5 years if 1.5 to 2.4 cm in maximum dimension. *TR 4 (4-6 points): FNA if more than or equal to 1.5 cm in maximum dimension. Follow-up ultrasound in 1, 2, 3, and 5 years if 1 to 1.4 cm in maximum dimension. *TR 5 (more than or equal to 7 points): FNA if more than or equal to 1 cm in maximum dimension. Follow-up ultrasound every year for 5 years if 0.5 to 0.9 cm in maximum dimension. *TR 3, TR 4, or TR 5 nodules that are below the size threshold for follow-up receive no follow-up. Electronically Signed: Kyle Ashby MD at 17:46 EDT ,
== END | disposition home or self-care (01) ==
PROVIDERS: PCP Internal Medicine; Referring Provider Internal Medicine; Visit Provider Internal Medicine
DX: E04.1 Nontoxic single thyroid nodule (principal)
CPT/HCPCS: 76536

== ENCOUNTER → 2024-07-07 | Outpatient (CLI) | payer MEDICARE, SELFPAY ==
[2024-07-07 11:21] LABS: PSA,Total- Diagnostic 7.96 ng/mL (0.0-4.0)
== END | disposition home or self-care (01) ==
LOC: MTLAB 07:05
PROVIDERS: PCP Internal Medicine; Referring Provider Nurse Practitioner; Visit Provider Nurse Practitioner
DX: R97.20 Elevated prostate specific antigen [PSA] (principal)
CPT/HCPCS: 36415; 84153

== ENCOUNTER → 2025-03-26 | Outpatient (CLI) | payer MEDICARE, SELFPAY ==
--- NOTE | 2025-03-26 10:08 | US_ITS ---
PROCEDURE: THYROID 03/26/2025 REASON FOR EXAM: THYROID DUE IN TECHNIQUE: THYROID COMPARISON: Thyroid ultrasound on 06/05/2024 and 06/22/2022 FINDINGS: Right thyroid lobe size: 4.5 x 1.4 x 1.4 cm Left thyroid lobe size: 4.7 x 1.7 x 1.5 cm Isthmus: 0.2 cm Background parenchymal echotexture is homogeneous. Nodules: 1. Lobe: Left, Location: Mid to lower, Size: 1.7 x 1.1 x 1.3 cm, Stability: Stable Composition: Solid or almost completely solid (+2) Echogenicity: Hyper to Isoechoic (+1) Margin: Smooth (+0) Shape: Wider than tall (+0) Echogenic Foci: None (+0) TI-RADS: 3 2. Lobe: Left, Location: Mid to upper, Size: 0.5 x 0.3 x 0.5 cm, Stability: Stable Composition: Solid or almost completely solid (+2) Echogenicity: Hypoechoic (+2) Margin: Ill-defined (+0) Shape: Wider than tall (+0) Echogenic Foci: None (+0) TI-RADS: 4 3. Lobe: Isthmus, Location: Left, Size: 0.2 x 0.4 x 0.2 cm, Stability: Stable Composition: Solid or almost completely solid (+2) Echogenicity: Hypoechoic (+2) Margin: Ill-defined (+0) Shape: Wider than tall (+0) Echogenic Foci: None (+0) TI-RADS: 4 US/Thyroid IMPRESSION: Multinodular thyroid, as detailed above. Recommend continued follow-up for nod ule #1 until 5 years of stability (currently at 3 years as it is unchanged since 2021). No FNA or follow-up is recommended for n odules #2 and #3 per ACR TI-RADS guidelines. Reading Location: [facility]
--- OUTSIDE RECORDS SUMMARY | 2025-03-26 10:23 | XMS RPT_ITS | CCD ---
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 strategies to treat blood lipids and to modify other non-lipid coronary risk factors. Reference: Cristino P et al. Circulation. 2007; 115:402-426 MACRO: None Signed by: Raquel Hernandez 04/05/2024 9:45 AM Dictation workstation: [id number] [facility] LIPID PANEL (18426)Ordered B y: Dean on 06-06-2023 Cholesterol [Mass/Vol] 166 mg/dL Normal 100-199 [facility]; [facility] Work Phone: Comment on above: PATIENT WAS FASTINGP ERFORMED BY: STACY Labcomartin Zavloq4125 [address] RoadDublin [place] [id number]; fu 9-15 DF Cholesterol in HDL [Mass/Vol] 45 mg/dL Normal [facility]; [facility] Work Phone: Comment on above: PATIENT WAS FASTINGP ERFORMED BY: STACY [facility] Slremk9903 [address] RoadDublin [place] [id number]; fu 9-15 DF Triglyceride [Mass/Vol] 84 mg/dL Normal 0-149 [facility]; [facility] Work Phone: Comment on above: PATIENT WAS FASTINGP ERFORMED BY: STACY Labcom[facility]in MelendezXtdipo3579 [address] RoadDublin [place] [id number]; fu 9-15 DF LIPID PANEL (99578) 16 mg/dL Normal 5-40 [facility]; [facility] Work Phone: Comment on above: PATIENT WAS FASTINGP ERFORMED BY: STACY Labcomartin Hmassd6306 [address] RoadDublin [place] [id number]; fu 9-15 DF LIPID PANEL (00091) 105 mg/dL Abnormal 0-99 [facility]; [facility] Work Phone: Comment on above: PATIENT WAS FASTINGP ERFORMED BY: STACY [facility] Bpesvu2699 [address] RoadDublin [place] [id number]; fu 9-15 DF LIPID PANEL (88370) 2.3 {ratio} Normal 0.0-3.6 [facility]; [facility] Work Phone: Comment on above: LDL/HDL Ratio Men Wo men 1/2 Avg.Risk 1.0 1.5 Avg.Risk 3.6 3.2 2X Avg.Risk 6.2 5.0 3X Avg.Risk 8.0 6.1 PATIENT WAS FASTINGP ERFORMED BY: STACY [facility] Opfgpx6288 [address] RoadDublin [place] [id number]; fu 9-15 DF Vitamin D Hydroxy (65673)Ord ered By: Dean on 06-06-2023 25-hydroxyvitamin D [Mass/Vol] 81.0 ng/mL Normal 30.0-100.0 [facility]; [facility] Work Phone: Comment on above: Vitamin D deficiency has been defined by the [place] ofMedicine and an Endocrine Society practice guideline as alevel of serum 25-OH vitamin D less than 20 ng/mL (1,2).The Endocrine Society went on to further define vitamin Dinsufficiency as a level between 21 and 29 ng/mL (2).1. IOM ([place] of Medicine). 2010. Dietary reference intakes for calcium and D. [place]: The National Academies Press.2. Shaka MF, Casa MILLER, Flor SILVEIRA, et al. Evaluation, treatment, and prevention of vitamin D deficiency: an Endocrine Society clinical practice guideline. JCEM. 2010; 96(7):1911-30. PATIENT WAS FASTINGP ERFORMED BY: Probki Iz okna [facility] Ajctvj70[address] [place] [id number] UPEP (14497)Ordered By: Syst em Vibrating Screen Operator on 04-06-2023 Albumin Elph (U) [Mass fraction] 36.2 % Normal [facility]; [facility] Work Phone: Comment on above: PERFORMED BY: [employer] [place] [id number] Alpha 1 globulin Elph (U) [Mass fraction] 1.9 % Normal [facility]; [facility] Work Phone: Comment on above: PERFORMED BY: [employer] [place] [id number] Alpha 2 globulin Elph (U) [Mass fraction] 20.5 % Normal [facility]; [facility] Work Phone: Comment on above: PERFORMED BY: [employer] [place] [id number] Beta globulin Elph (U) [Mass fraction] 24.5 % Normal [facility]; [facility] Work Phone: Comment on above: PERFORMED BY: [employer]6370 [employer] [id number] Gamma globulin Elph (U) [Mass fraction] 16.8 % Normal [facility]; [facility] Work Phone: Comment on above: PERFORMED BY: [employer] [id number] Laboratory comment Darshan (Report) SPRCS Normal [facility]; [facility] Work Phone: Comment on above: Protein electrophore sis scan will follow via computer, mail, orcourier delivery. PERFORMED BY: [employer] [id number] Laboratory report . Normal Compreh ensive Internal Medicine; [facility] Work Phone: Comment on above: PERFORMED BY: [employer] [id number] Protein (U) [Mass/Vol] 15.2 mg/dL Normal [facility]; [facility] Work Phone: Comment on above: PERFORMED BY: [employer] [place] [id number] Protein.monoclona l Elph (U) [Mass fraction] Not Observed Normal [facility]; [facility] Work Phone: Comment on above: PERFORMED BY: [employer] [place] [id number] URINE CALCIUM EFREM TIMED 24 Hour (19453)Ordered By: Dean on 04-06-2023 Calcium (24H U) [Mass/Time] 294 {mg/24_hr} Normal 0-320 [facility]; [facility] Work Phone: Comment on above: PERFORMED BY: [employer] [place] [id number] Calcium (24H U) [Mass/Vol] 14.0 mg/dL Normal [facility]; [facility] Work Phone: Comment on above: PERFORMED BY: [employer] [place] [id number] ALKALINE PHOSPHATASE (41749) Ordered By: Dean on 04-04-2023 ALP [Catalytic activity/Vol] 84 U/L Normal 44-121 [facility]; [facility] Work Phone: Comment on above: PATIENT WAS FASTINGP ERFORMED BY: [employer] [place] [id number] BY: [employer] [id number] CALCIUM SERUM (14020)Ordered By: Dean on 04-04-2023 Calcium [Mass/Vol] 9.3 mg/dL Normal 8.6-10.2 [facility]; [facility] Work Phone: Comment on above: PATIENT WAS FASTINGP ERFORMED BY: [employer]70 [facility] [id number] BY: [employer] [id number] PARATHORMONE (44328)Ordered By: Dean on 04-04-2023 Parathyrin.intact [Mass/Vol] 34 pg/mL Normal 15-65 [facility]; [facility] Work Phone: Comment on above: PATIENT WAS FASTINGP ERFORMED BY: [employer]6370 [facility] [id number] BY: [employer] [id number] PHOSPHORUS (01497)Ordered By : Dean on 04-04-2023 Phosphate [Mass/Vol] 3.4 mg/dL Normal 2.8-4.1 [facility]; [facility] Work Phone: Comment on above: PATIENT WAS FASTINGP ERFORMED BY: [employer]70 [facility] [id number] BY: [employer] [id number] SPEP (85833)Ordered By: Syst em Vibrating Screen Operator on 04-04-2023 Albumin [Mass/Vol] 3.9 g/dL Normal 2.9-4.4 [facility]; [facility] Work Phone: Comment on above: PATIENT WAS FASTINGP ERFORMED BY: [facility] Mfwwqg2477 [facility] [id number] BY: Lab[address] [id number] Albumin/Globulin [Mass ratio] 1.6 {ratio} Normal 0.7-1.7 [facility]; [facility] Work Phone: Comment on above: PATIENT WAS FASTINGP ERFORMED BY: [facility] Posnea3444 [facility] [id number] BY: Lab[address] [id number] Alpha 1 globulin Elph [Mass/Vol] 0.2 g/dL Normal 0.0-0.4 [facility]; [facility] Work Phone: Comment on above: PATIENT WAS FASTINGP ERFORMED BY: [facility] Canosa0067 [facility] [id number] BY: Lab[address] [id number] Alpha 2 globulin Elph [Mass/Vol] 0.5 g/dL Normal 0.4-1.0 [facility]; [facility] Work Phone: Comment on above: PATIENT WAS FASTINGP ERFORMED BY: [facility] Kfhpmn4320 [facility] [id number] BY: Lab[address] [id number] Beta globulin Elph [Mass/Vol] 0.8 g/dL Normal 0.7-1.3 [facility]; [facility] Work Phone: Comment on above: PATIENT WAS FASTINGP ERFORMED BY: [facility] Rildvd0286 [facility] [id number] BY: [address] [id number] Gamma globulin Elph [Mass/Vol] 1.0 g/dL Normal 0.4-1.8 [facility]; [facility] Work Phone: Comment on above: PATIENT WAS FASTINGP ERFORMED BY: CB [facility] Zzbbbp110[address] [facility] [id number] BY: Lab[address] [id number] Globulin (S) [Mass/Vol] 2.4 g/dL Normal 2.2-3.9 [facility]; [facility] Work Phone: Comment on above: PATIENT WAS FASTINGP ERFORMED BY: CB [facility] Oqugrw9490 [facility] [id number] BY: Lab[address] [id number] Laboratory comment Darshan (Report) SPRCS Normal [facility]; [facility] Work Phone: Comment on above: Protein electrophore sis scan will follow via computer, mail, orcourier delivery. PATIENT WAS FASTINGP ERFORMED BY: CB [facility] Uwhyas4380 [facility] [id number] BY: [employer] [id number] Laboratory report . Normal Compreh ensive [facility]; [facility] Work Phone: Comment on above: PATIENT WAS FASTINGP ERFORMED BY: CB [facility] Inzinh6125 [facility] [id number] BY: Lab[address] [id number] Protein [Mass/Vol] 6.3 g/dL Normal 6.0-8.5 [facility]; [facility] Work Phone: Comment on above: PATIENT WAS FASTINGP ERFORMED BY: CB [facility] Kisqan5344 [facility] [id number] BY: [address] [id number] Protein.monoclona l Elph [Mass/Vol] Not Observed Normal [facility]; [facility] Work Phone: Comment on above: PATIENT WAS FASTINGP ERFORMED BY: Probki Iz okna [facility] Pnllxu7080 [address] [facility] [id number] BY: [employer] [id number] TESTOSTERONE FREE (07235)Ord ered By: Dean on 04-04-2023 Testosterone Free [Mass/Vol] 7.3 pg/mL Normal 6.6-18.1 [facility]; [facility] Work Phone: Comment on above: PATIENT WAS FASTINGP ERFORMED BY: Probki Iz okna [facility] Vgkbyj75[address] [facility] [place] [id number] BY: [employer] Hxcnq[address]rg[address] [id number] TESTOSTERONE TOTAL (02752)Or dered By: Dean on 04-04-2023 Testosterone [Mass/Vol] 556 ng/dL Normal 264-916 [facility]; [facility] Work Phone: Comment on above: Adult male reference interval is based on a population ofhealthy nonobese males (BMI <30) between 19 and 39 years old.Frank et.al. JCEM 2017,102;2841-0657. PMID: 29828789. PATIENT WAS FASTINGP ERFORMED BY: Probki Iz okna Lab1CloudStarrp Azsekd6[address] [facility] [place] [id number] BY: [employer] [address] [id number] TSH (05164)Ordered By: Syste m Vibrating Screen Operator on 04-04-2023 TSH Qn 4.020 {uIU/mL} Normal 0.450-4.500 [facility]; [facility] Work Phone: Comment on above: PATIENT WAS FASTINGP ERFORMED BY: Probki Iz okna Lab1CloudStarrp Nembyb3583 [address] RoadDublin [place] [id number] BY: [employer] [id number] Vitamin D Hydroxy (90695)Ord ered By: Dean on 04-04-2023 25-hydroxyvitamin D [Mass/Vol] 74.0 ng/mL Normal 30.0-100.0 [facility]; [facility] Work Phone: Comment on above: Vitamin D deficiency has been defined by the [place] of[place]icine and an Endocrine Society practice guideline as alevel of serum 25-OH vitamin D less than 20 ng/mL (1,2).The Endocrine Society went on to further define vitamin Dinsufficiency as a level between 21 and 29 ng/mL (2).1. IOM ([place] of Medicine). 2010. Dietary reference intakes for calcium and D. [place]: The National Academies Press.2. Shaka MF, Casa MILLER, Flor SILVEIRA, et al. Evaluation, treatment, and prevention of vitamin D deficiency: an Endocrine Society clinical practice guideline. JCEM. 2010; 96(7):1911-30. PATIENT WAS FASTINGP ERFORMED BY: Gra[facility]leNov[facility] [id number] BY: [employer] [address] [id number] CBC W/AUTO DIFF WBC (57210)O rdered By: Dean on 02-07-2023 Basophils (Bld) [#/Vol] 0.0 10*3/uL Normal 0.0-0.2 [facility]; [facility] Work Phone: Comment on above: PATIENT WAS FASTINGP ERFORMED BY: [employer]70 [facility]ronisNov[facility] [id number] Basophils/100 WBC (Bld) 1 % Normal [facility]; [facility] Work Phone: Comment on above: PATIENT WAS FASTINGP ERFORMED BY: CNZZBaptist Health Corbin [id number] Eosinophils (Bld) [#/Vol] 0.1 10*3/uL Normal 0.0-0.4 [facility]; [facility] Work Phone: Comment on above: PATIENT WAS FASTINGP ERFORMED BY: [facility] [place] [id number] Eosinophils/100 WBC (Bld) 3 % Normal [facility]; [facility] Work Phone: Comment on above: PATIENT WAS FASTINGP ERFORMED BY: STACY Kendra Wilson6370 [facility] [id number] Erythrocyte distribution width (RBC) [Ratio] 12.9 % Normal 11.6-15.4 [facility]; [facility] Work Phone: Comment on above: PATIENT WAS FASTINGP ERFORMED BY: [facility] Qzxadu9702 [facility] [id number] Hematocrit (Bld) [Volume fraction] 48.8 % Normal 37.5-51.0 [facility]; [facility] Work Phone: Comment on above: PATIENT WAS FASTINGP ERFORMED BY: [facility] Rqohaj5668 [facility] [id number] Hemoglobin (Bld) [Mass/Vol] 15.7 g/dL Normal 13.0-17.7 [facility]; [facility] Work Phone: Comment on above: PATIENT WAS FASTINGP ERFORMED BY: Maria D Cespti6371 [facility] [id number] Immature granulocytes (Bld) [#/Vol] 0.0 10*3/uL Normal 0.0-0.1 [facility]; [facility] Work Phone: Comment on above: PATIENT WAS FASTINGP ERFORMED BY: [facility] Jeelbf1227 [facility] [id number] Immature granulocytes/100 WBC (Bld) 0 % Normal [facility]; [facility] Work Phone: Comment on above: PATIENT WAS FASTINGP ERFORMED BY: [facility] Rtinnz0866 [facility] [id number] Lymphocytes (Bld) [#/Vol] 1.1 10*3/uL Normal 0.7-3.1 [facility]; [facility] Work Phone: Comment on above: PATIENT WAS FASTINGP ERFORMED BY: [facility]6370 [facility] [id number] Lymphocytes/100 WBC (Bld) 23 % Normal [facility]; [facility] Work Phone: Comment on above: PATIENT WAS FASTINGP ERFORMED BY: [facility] Qbzjhz1646 [facility] [id number] MCH (RBC) [Entitic mass] 29.6 pg Normal 26.6-33.0 [facility]; [facility] Work Phone: Comment on above: PATIENT WAS FASTINGP ERFORMED BY: [place] 7188670 [facility] [id number] MCHC (RBC) [Mass/Vol] 32.2 g/dL Normal 31.5-35.7 [facility]; [facility] Work Phone: Comment on above: PATIENT WAS FASTINGP ERFORMED BY: [address] [id number] MCV (RBC) [Entitic vol] 92 fL Normal 79-97 [facility]; [facility] Work Phone: Comment on above: PATIENT WAS FASTINGP ERFORMED BY: NathenMichelle Ville 1269570 [facility] [id number] Monocytes (Bld) [#/Vol] 0.5 10*3/uL Normal 0.1-0.9 [facility]; [facility] Work Phone: Comment on above: PATIENT WAS FASTINGP ERFORMED BY: [facility]6370 [facility] [id number] Monocytes/100 WBC (Bld) 11 % Normal [facility]; [facility] Work Phone: Comment on above: PATIENT WAS FASTINGP ERFORMED BY: [facility]henBe[facility]umont Hospital6370 [facility] [id number] Neutrophils (Bld) [#/Vol] 2.9 10*3/uL Normal 1.4-7.0 [facility]; [facility] Work Phone: Comment on above: PATIENT WAS FASTINGP ERFORMED BY: STACY [facility] Irjtua9379 [address] RoadDublin [place] [id number] Neutrophils/100 WBC (Bld) 62 % Normal [facility]; [facility] Work Phone: Comment on above: PATIENT WAS FASTINGP ERFORMED BY: CB [facility] Fkpqhp2227 [address] RoadDublin [place] [id number] Platelets (Bld) [#/Vol] 165 10*3/uL Normal 150-450 [facility]; [facility] Work Phone: Comment on above: PATIENT WAS FASTINGP ERFORMED BY: CB [facility] Cpvggk3306 [address] RoadDublin [place] [id number] RBC (Bld) [#/Vol] 5.31 10*6/uL Normal 4.14-5.80 [facility]; [facility] Work Phone: Comment on above: PATIENT WAS FASTINGP ERFORMED BY: CB [facility] Jzshih0622 [address] RoadDublin [place] [id number] WBC (Bld) [#/Vol] 4.7 10*3/uL Normal 3.4-10.8 [facility] Internal [facility]; [facility] Work Phone: Comment on above: PATIENT WAS FASTINGP ERFORMED BY: STACY [facility] Xaseqd8567 [address] RoadDublin [place] [id number] METABOLIC PANEL, COMPREHENSI VE ([id number])Ordered By: Dean on 02-07-2023 Albumin [Mass/Vol] 4.5 g/dL Normal 3.8-4.8 [facility]; [facility] Work Phone: Comment on above: PATIENT WAS FASTINGP ERFORMED BY: CB [facility] Lmadxl4856 [address] RoadDublin [place] [id number] Albumin/Globulin [Mass ratio] 2.1 {ratio} Normal 1.2-2.2 [facility]; [facility] Work Phone: Comment on above: PATIENT WAS FASTINGP ERFORMED BY: CB [facility] Xmuhfr1148 [address] RoadDublin [place] [id number] ALP [Catalytic activity/Vol] 83 U/L Normal 44-121 [facility]; [facility] Work Phone: Comment on above: PATIENT WAS FASTINGP ERFORMED BY: CB [facility] Vgpjdq5172 [address] RoadDublin [place] [id number] ALT [Catalytic activity/Vol] 19 U/L Normal 0-44 [facility]; [facility] Work Phone: Comment on above: PATIENT WAS FASTINGP ERFORMED BY: CB [facility] Gyfrpt8204 [address] RoadDublin [place] [id number] AST [Catalytic activity/Vol] 17 U/L Normal 0-40 [facility]; [facility] Work Phone: Comment on above: PATIENT WAS FASTINGP ERFORMED BY: [facility] Kahkpy4173 [address] RoadDublin [place] [id number] Bilirubin [Mass/Vol] 0.4 mg/dL Normal 0.0-1.2 [facility]; [facility] Work Phone: Comment on above: PATIENT WAS FASTINGP ERFORMED BY: [facility] Hsklaw9412 [address] RoadDublin [place] [id number] Calcium [Mass/Vol] 9.4 mg/dL Normal 8.6-10.2 [facility]; [facility] Work Phone: Comment on above: PATIENT WAS FASTINGP ERFORMED BY: [facility] Ynbrsw2303 [address] RoadDublin [place] [id number] Chloride [Moles/Vol] 104 mmol/L Normal 96-106 [facility]; [facility] Work Phone: Comment on above: PATIENT WAS FASTINGP ERFORMED BY: [facility] Rlvzqg2180 [address] RoadDublin [place] [id number] CO2 [Moles/Vol] 26 mmol/L Normal 20-29 [facility] Internal [facility]; [facility] Work Phone: Comment on above: PATIENT WAS FASTINGP ERFORMED BY: [facility] Thiziv1205 [address] RoadDublin [place] [id number] Creatinine [Mass/Vol] 1.02 mg/dL Normal 0.76-1.27 [facility]; [facility] Work Phone: Comment on above: PATIENT WAS FASTINGP ERFORMED BY: STACY Nathencorrina MelendezByvjqm6274 [facility] [id number] GFR/1.73 sq M.predicted among non-blacks MDRD (S/P/Bld) [Vol rate/Area] 83 mL/min/{1.73_m2} Normal Comprehensiv e Internal Medicine; [facility] Work Phone: Comment on above: PATIENT WAS FASTINGP ERFORMED BY: STACY Melendezlin6370 [facility] [id number] Globulin (S) [Mass/Vol] 2.1 g/dL Normal 1.5-4.5 [facility]; [facility] Work Phone: Comment on above: PATIENT WAS FASTINGP ERFORMED BY: STACY Melendezlin6370 [facility] [id number] Glucose [Mass/Vol] 94 mg/dL Normal 70-99 [facility]; [facility] Work Phone: Comment on above: PATIENT WAS FASTINGP ERFORMED BY: STACY Melendezlin6370 [facility] [id number] Potassium [Moles/Vol] 4.8 mmol/L Normal 3.5-5.2 [facility]; [facility] Work Phone: Comment on above: PATIENT WAS FASTINGP ERFORMED BY: STACY Labyashira Rzniwn1032 [facility] [id number] Protein [Mass/Vol] 6.6 g/dL Normal 6.0-8.5 [facility]; [facility] Work Phone: Comment on above: PATIENT WAS FASTINGP ERFORMED BY: STACY Labyashira Bvynhx4234 [facility] [id number] Sodium [Moles/Vol] 143 mmol/L Normal 134-144 [facility]; [facility] Work Phone: Comment on above: PATIENT WAS FASTINGP ERFORMED BY: STACY [facility] & Reed DistilleryBeaumont Hospital6370 [facility] [id number] Urea nitrogen [Mass/Vol] 23 mg/dL Normal 8-27 [facility]; [facility] Work Phone: Comment on above: PATIENT WAS FASTINGP ERFORMED BY: [facility] Qoxtsh0125 [facility] [id number] Urea nitrogen/Creatini ne [Mass ratio] 23 mg/mg Normal 10-24 [facility]; [facility] Work Phone: Comment on above: PATIENT WAS FASTINGP ERFORMED BY: [facility]6370 [facility] [id number] PSA (PROSTATE SPECIFIC ANTIG EN) (63961)Ordered By: Dean on 02-07-2023 Prostate specific Ag [Mass/Vol] 6.3 ng/mL Abnormal 0.0-4.0 [facility]; [facility] Work Phone: Comment on above: Clau ECLIA methodol ogy. .According to the [place] [employer], Serum PSA shoulddecrease and remain at undetectable levels after radicalprostatectomy. The AUA defines biochemical recurrence as an initialPSA value 0.2 ng/mL or greater followed by a subsequent confirmatoryPSA value 0.2 ng/mL or greater.Values obtained with different assay methods or kits cannot be usedinterchangeably. Results cannot be interpreted as absolute evidenceof the presence or absence of malignant disease. PATIENT WAS FASTINGP ERFORMED BY: [facility] [facility] [id number] CBC W/AUTO DIFF WBC ([id number])O rdered By: Dean on 08-30-2022 Basophils (Bld) [#/Vol] 0.0 10*3/uL Normal 0.0-0.2 [facility]; [facility] Work Phone: Comment on above: PATIENT WAS FASTINGP ERFORMED BY: [facility] [facility] [id number] Basophils/100 WBC (Bld) 1 % Normal [facility]; [facility] Work Phone: Comment on above: PATIENT WAS FASTINGP ERFORMED BY: [facility] Tnjvgc8333 [address] RoadDublin [place] [id number] Eosinophils (Bld) [#/Vol] 0.2 10*3/uL Normal 0.0-0.4 [facility]; [facility] Work Phone: Comment on above: PATIENT WAS FASTINGP ERFORMED BY: [facility] Booyxd3670 [address] RoadDublin [place] [id number] Eosinophils/100 WBC (Bld) 3 % Normal [facility]; [facility] Work Phone: Comment on above: PATIENT WAS FASTINGP ERFORMED BY: [facility] Nvuslg9574 [address]blin [place] [id number] Erythrocyte distribution width (RBC) [Ratio] 13.9 % Normal 11.6-15.4 [facility]; [facility] Work Phone: Comment on above: PATIENT WAS FASTINGP ERFORMED BY: [facility] [facility] [id number] Hematocrit (Bld) [Volume fraction] 46.3 % Normal 37.5-51.0 [facility]; [facility] Work Phone: Comment on above: PATIENT WAS FASTINGP ERFORMED BY: [facility] Lkvtrm8339 [address] RoadFormerly [facility] [place] [id number] Hemoglobin (Bld) [Mass/Vol] 15.3 g/dL Normal 13.0-17.7 [facility]; [facility] Work Phone: Comment on above: PATIENT WAS FASTINGP ERFORMED BY: [facility] Dzxmkc2239 [address] RoadDublin [place] [id number] Immature granulocytes (Bld) [#/Vol] 0.0 10*3/uL Normal 0.0-0.1 [facility]; [facility] Work Phone: Comment on above: PATIENT WAS FASTINGP ERFORMED BY: [facility] Krqzns2754 [address]Dublin [place] [id number] Immature granulocytes/100 WBC (Bld) 0 % Normal [facility]; [facility] Work Phone: Comment on above: PATIENT WAS FASTINGP ERFORMED BY: [facility] Blvslo9760 [address]Dublin [place] [id number] Lymphocytes (Bld) [#/Vol] 1.1 10*3/uL Normal 0.7-3.1 [facility]; [facility] Work Phone: Comment on above: PATIENT WAS FASTINGP ERFORMED BY: [facility] Kwdszi6527 [address] RoadDublin [place] [id number] Lymphocytes/100 WBC (Bld) 23 % Normal [facility]; [facility] Work Phone: Comment on above: PATIENT WAS FASTINGP ERFORMED BY: [facility] Xyolug7760 [address]bl[address] [place] [id number] MCH (RBC) [Entitic mass] 29.1 pg Normal 26.6-33.0 [facility]; [facility] Work Phone: Comment on above: PATIENT WAS FASTINGP ERFORMED BY: [facility] Ffjnci4846 [address] RoadDublin [place] [id number] MCHC (RBC) [Mass/Vol] 33.0 g/dL Normal 31.5-35.7 [facility]; [facility] Work Phone: Comment on above: PATIENT WAS FASTINGP ERFORMED BY: [facility] Idtfsv[address] [facility] HospitalDublin [place] [id number] MCV (RBC) [Entitic vol] 88 fL Normal 79-97 [facility]; [facility] Work Phone: Comment on above: PATIENT WAS FASTINGP ERFORMED BY: [facility] Fkcmzq0447 [address] RoadDublin [place] [id number] Monocytes (Bld) [#/Vol] 0.6 10*3/uL Normal 0.1-0.9 [facility]; [facility] Work Phone: Comment on above: PATIENT WAS FASTINGP ERFORMED BY: [facility] Myipuv6618 [address] RoadDublin [place] [id number] Monocytes/100 WBC (Bld) 13 % Normal [facility]; [facility] Work Phone: Comment on above: PATIENT WAS FASTINGP ERFORMED BY: STACY [facility] Aajzed3453 [address] RoadDublin [place] [id number] Neutrophils (Bld) [#/Vol] 2.8 10*3/uL Normal 1.4-7.0 [facility]; [facility] Work Phone: Comment on above: PATIENT WAS FASTINGP ERFORMED BY: CB [facility] Qawbat1494 [address]Dublin [place] [id number] Neutrophils/100 WBC (Bld) 60 % Normal [facility]; [facility] Work Phone: Comment on above: PATIENT WAS FASTINGP ERFORMED BY: CB [facility] Xlbhyv2214 [address] RoadDublin [place] [id number] Platelets (Bld) [#/Vol] 172 10*3/uL Normal 150-450 [facility]; [facility] Work Phone: Comment on above: PATIENT WAS FASTINGP ERFORMED BY: CB [facility] Kbequb7333 [address] RoadDublin [place] [id number] RBC (Bld) [#/Vol] 5.25 10*6/uL Normal 4.14-5.80 Compr ehensive Internal [facility]; [facility] Work Phone: Comment on above: PATIENT WAS FASTINGP ERFORMED BY: STACY [facility] Khejrp0018 [address] RoadDublin [place] [id number] WBC (Bld) [#/Vol] 4.8 10*3/uL Normal 3.4-10.8 Compre [facility]; [facility] Work Phone: Comment on above: PATIENT WAS FASTINGP ERFORMED BY: CB [facility] Jrsyey4162 [address]Dublin [place] [id number] LIPID PANEL ([id number])Ordered B y: Dean on 08-30-2022 Cholesterol [Mass/Vol] 175 mg/dL Normal 100-199 [facility]; [facility] Work Phone: Comment on above: PATIENT WAS FASTINGP ERFORMED BY: CB [facility] Mvtiwd2934 [address] RoadDublin [place] [id number] Cholesterol in HDL [Mass/Vol] 40 mg/dL Normal [facility]; [facility] Work Phone: Comment on above: PATIENT WAS FASTINGP ERFORMED BY: STACY Kendra Melendezlin[address] [facility]in [place] [id number] Triglyceride [Mass/Vol] 122 mg/dL Normal 0-149 [facility]; [facility] Work Phone: Comment on above: PATIENT WAS FASTINGP ERFORMED BY: STACY [facility] MelendezAivuue[address] [facility] [id number] LIPID PANEL ([id number]) 22 mg/dL Normal 5-40 [facility]; [facility] Work Phone: Comment on above: PATIENT WAS FASTINGP ERFORMED BY: STACY [facility] MelendezMyjfbq[address] [facility]in [place] [id number] LIPID PANEL (80992) 113 mg/dL Abnormal 0-99 [facility]; [facility] Work Phone: Comment on above: PATIENT WAS FASTINGP ERFORMED BY: STACY Melendezlin6[address] [facility] [id number] LIPID PANEL (66505) 2.8 {ratio} Normal 0.0-3.6 [facility]; [facility] Work Phone: Comment on above: LDL/HDL Ratio Men Wo men 1/2 Avg.Risk 1.0 1.5 Avg.Risk 3.6 3.2 2X Avg.Risk 6.2 5.0 3X Avg.Risk 8.0 6.1 PATIENT WAS FASTINGP ERFORMED BY: STACY [facility] MelendezLyjvrk[address] [facility]in [place] [id number] METABOLIC PANEL, COMPREHENSI VE (28540)Ordered By: Dean on 08-30-2022 Albumin [Mass/Vol] 4.3 g/dL Normal 3.8-4.8 [facility]; [facility] Work Phone: Comment on above: PATIENT WAS FASTINGP ERFORMED BY: STACY [facility] Zjeoqq[address] [facility] [id number]; appt 09/13 Albumin/Globulin [Mass ratio] 2.0 {ratio} Normal 1.2-2.2 [facility]; [facility] Work Phone: Comment on above: PATIENT WAS FASTINGP ERFORMED BY: STACY Wilson6[address] RoadTariqblin [place] [id number]; appt 09/13 ALP [Catalytic activity/Vol] 90 U/L Normal 44-121 [facility]; [facility] Work Phone: Comment on above: PATIENT WAS FASTINGP ERFORMED BY: STACY [facility] Xdqwax8727 [address] Roadblin [place] [id number]; appt 09/13 ALT [Catalytic activity/Vol] 17 U/L Normal 0-44 [facility]; [facility] Work Phone: Comment on above: PATIENT WAS FASTINGP ERFORMED BY: STACY Wilson6[address]bl[address] [place] [id number]; appt 09/13 AST [Catalytic activity/Vol] 18 U/L Normal 0-40 [facility]; [facility] Work Phone: Comment on above: PATIENT WAS FASTINGP ERFORMED BY: STACY Lab[facility] Wilson6[address]bl[address] [place] [id number]; appt /16 Bilirubin [Mass/Vol] 0.5 mg/dL Normal 0.0-1.2 [facility]; [facility] Work Phone: Comment on above: PATIENT WAS FASTINGP ERFORMED BY: STACY Lab[facility] Nrrtzn7[address] RoadFormerly [facility] [place] [id number]; appt 09/13 Calcium [Mass/Vol] 9.1 mg/dL Normal 8.6-10.2 [facility]; [facility] Work Phone: Comment on above: PATIENT WAS FASTINGP ERFORMED BY: STACY [facility] Odphxq6412 [address] Roadblin [place] [id number]; appt 12/16 Chloride [Moles/Vol] 101 mmol/L Normal 96-106 [facility]; [facility] Work Phone: Comment on above: PATIENT WAS FASTINGP ERFORMED BY: STACY [facility] Njokvo3388 [facility] [id number]; appt 09/13 CO2 [Moles/Vol] 26 mmol/L Normal 20-29 Comprehen sive Internal Medicine; [facility] Work Phone: Comment on above: PATIENT WAS FASTINGP ERFORMED BY: STACY [facility] Eseghl1290 [facility] [id number]; appt 09/13 Creatinine [Mass/Vol] 1.06 mg/dL Normal 0.76-1.27 [facility]; [facility] Work Phone: Comment on above: PATIENT WAS FASTINGP ERFORMED BY: STACY [facility] Xngbbb6667 [facility] [id number]; appt 09/13 GFR/1.73 sq M.predicted among non-blacks MDRD (S/P/Bld) [Vol rate/Area] 79 mL/min/{1.73_m2} Normal Comprehensiv e [facility] Medicine; [facility] Work Phone: Comment on above: PATIENT WAS FASTINGP ERFORMED BY: STACY [facility] Ttbbve0991 [facility] [id number]; appt 09/13 Globulin (S) [Mass/Vol] 2.2 g/dL Normal 1.5-4.5 [facility]; [facility] Work Phone: Comment on above: PATIENT WAS FASTINGP ERFORMED BY: STACY [facility] Dmiqap4804 [facility] [id number]; appt 09/13 Glucose [Mass/Vol] 92 mg/dL Normal 70-99 [facility]; [facility] Work Phone: Comment on above: PATIENT WAS FASTINGP ERFORMED BY: STACY [facility] Azskll2205 [facility] [id number]; appt 09/13 Potassium [Moles/Vol] 4.1 mmol/L Normal 3.5-5.2 [facility]; [facility] Work Phone: Comment on above: PATIENT WAS FASTINGP ERFORMED BY: CB [facility] Xpfeuh8637 [address] RoadDublin [place] [id number]; appt 09/13 Protein [Mass/Vol] 6.5 g/dL Normal 6.0-8.5 [facility]; [facility] Work Phone: Comment on above: PATIENT WAS FASTINGP ERFORMED BY: CB [facility] Nnbmlg4505 [address] RoadDublin [place] [id number]; appt 09/13 Sodium [Moles/Vol] 140 mmol/L Normal 134-144 [facility]; [facility] Work Phone: Comment on above: PATIENT WAS FASTINGP ERFORMED BY: CB [facility] Cdcdde9749 [address] RoadDublin [place] [id number]; appt 09/13 Urea nitrogen [Mass/Vol] 20 mg/dL Normal 8-27 [facility]; [facility] Work Phone: Comment on above: PATIENT WAS FASTINGP ERFORMED BY: CB [facility] Hhnshh6910 [address] RoadDublin [place] [id number]; appt 09/13 Urea nitrogen/Creatini ne [Mass ratio] 19 mg/mg Normal 10-24 [facility]; [facility] Work Phone: Comment on above: PATIENT WAS FASTINGP ERFORMED BY: CB [facility] Bgfddz2577 [address] RoadDublin [place] [id number]; appt 09/13 TSH ([id number])Ordered By: Mone m Vibrating Screen Operator on 08-30-2022 TSH Qn 3.560 {uIU/mL} Normal 0.450-4.500 [facility] Internal Medicine; [facility] Work Phone: Comment on above: PATIENT WAS FASTINGP ERFORMED BY: CB [facility] Hlqufi2883 [address] RoadDublin [place] [id number] Vitamin D Hydroxy ([id number])Ord ered By: Dean on 08-30-2022 25-hydroxyvitamin D [Mass/Vol] 46.4 ng/mL Normal 30.0-100.0 [facility]; [facility] Work Phone: Comment on above: Vitamin D deficiency has been defined by the [place] ofMedicine and an Endocrine Society practice guideline as alevel of serum 25-OH vitamin D less than 20 ng/mL (1,2).The Endocrine Society went on to further define vitamin Dinsufficiency as a level between 21 and 29 ng/mL (2).1. IOM ([place] of Medicine). 2010. Dietary reference intakes for calcium and D. [place]: The National Academies Press.2. Shaka MF, Casa MILLER, Flor SILVEIRA, et al. Evaluation, treatment, and prevention of vitamin D deficiency: an Endocrine Society clinical practice guideline. JCEM. 2010; 96(7):1911-30. PATIENT WAS FASTINGP ERFORMED BY: [facility]6370 [facility] [id number] CNOVon 08-12-2022 CNOV Office Visit (GENSWS ) MIGUE PURDY ([id number]) 1960 M Date Time Provider Department 08/12/22 1:15 PM EZEKIEL TAYLOR During your visit today, we recorded the following information about you: Temperature Pulse Blood pressure Weight 98.7 degrees 94/minute 112/60 63.5 kg Height 1.702 m Ezekiel Taylor III, MD 08/12/2022 1:16 PM Signed Subjective: Patient is status post an ultrasound-guided fine-needle aspiration of the left thyroid nodule. This came back consistent with a benign/colloid nodule. Was adequate for evaluation and was negative for malignant cells. Objective:Blood pressure 112/60, pulse 94, temperature 37.1 ?C (98.7 ?F), height 170.2 cm (5' 7), weight 63.5 kg (140 lb), SpO2 97 %. Neck is supple no hard palpable nodules are identified. Assessment:Multinodular goiter (primary encounter diagnosis) Plan: Patient should get yearly thyroid ultrasounds. Repeat fine-needle aspirations will need to be performed if the nodule grows by more than 20%. Referring Provider: EZEKIEL TAYLOR [[id number]] Allergies As of Date: 08/12/2022 Noted Allergy Reaction BEES 02/07/2006 milk products [Other] 02/07/2006 Date Reviewed: 08/12/2022 Reviewed by: Herminia Avalos LPN - Fully Assessed Reason for Visit: Follow Up [171] Cmt: Thyroid biopsy Primary Visit Diagnosis:Multinodular goiter [E04.2] Prescriptions as of 08/12/2022 - doxazosin (CARDURA) 2 mg tablet Take 2 mg by mouth once daily. - ferrous sulfate 325 mg (65 mg iron) tablet Take 1 tablet by mouth every other day. Problem List As Of Date: 08/12/2022 (None) Letter Text Encounter Status:Closed by EZEKIEL TAYLOR on 08/12/22 [facility] 07-29-2022 [facility] Telephone (GENSWS) MIGUE PURDY ([id number]) 1960 M Date Time Provider Department 07/29/22 EZEKIEL TAYLOR GENS During your visit today, we recorded the following information about you: Mirela Kent RN 07/29/2022 3:37 PM Signed Patient needs a f/u appt for FNA left Thyroid with Dr. Taylor. Our PSS Georgette indicated that he needs to talk to Patient Financial Services before f/u can be scheduled. Please contact the patient as they need a f/u to go over results. Thanks!ZELALEM Sanchez LPN 07/31/2022 10:29 AM Signed Spoke to Patient Clothing Supervisor, stated they would reach out and call patient. GREGORIO Lerner LPN 08/02/2022 2:24 PM Signed Patient state was called by financial dept, needs to make a payment before can be scheduled for office visit for test results. Patient states will make a payment next week and will schedule appointment afterward. Patient states does not have Capriza access either. Herminia Avalos LPN Allergies As of Date: 07/29/2022 Noted Allergy Reaction BEES 02/07/2006 milk products [Other] 02/07/2006 Date Reviewed: 07/22/2022 Reviewed by: Mirela Kent RN - Fully Assessed Reason for Visit: Results [95] Prescriptions as of 08/02/2022 - doxazosin (CARDURA) 2 mg tablet Take 2 mg by mouth once daily. - ferrous sulfate 325 mg (65 mg iron) tablet Take 1 tablet by mouth every other day. Problem List As Of Date: 07/29/2022 (None) Encounter Status:Closed by HERMINIA AVALOS on 08/02/22 [facility] Telephone (Logical [employer]rapeuticsKAROLINES) MIGUE PURDY ([id number]) 1960 M Date Time Provider Department 07/29/22 EZEKIEL TAYLOR During your visit today, we recorded the following information about you: Georgette Deep 07/29/2022 2:58 PM Signed Called patient. Said he needs to call finical services first before scheduling a F/U with Brandon. Georgette Walker Allergies As of Date: 07/29/2022 Noted Allergy Reaction BEES 02/07/2006 milk products [Other] 02/07/2006 Date Reviewed: 07/22/2022 Reviewed by: Mirela Kent RN - Fully Assessed Reason for Visit: Appointment [186] Cmt: Called patient. Said he needs to call finical services first before scheduling a F/U with Brandon. Prescriptions as of 07/29/2022 - doxazosin (CARDURA) 2 mg tablet Take 2 mg by mouth once daily. - ferrous sulfate 325 mg (65 mg iron) tablet Take 1 tablet by mouth every other day. Problem List As Of Date: 07/29/2022 (None) Encounter Status:Closed by GEORGETTE WALKER on 07/29/22 [facility] CNOVon 07-22-2022 CNOV Office Visit (GENSWS ) MIGUE PURDY ([id number]) 1960 M Date Time Provider Department 07/22/22 4:00 PM EZEKIEL TAYLOR During your visit today, we recorded the following information about you: Mirela Kent RN 07/22/2022 3:29 PM Signed UNIVERSAL PROTOCOL / SAFETY CHECKLIST Procedure to be Performed: Ultrasound Guided Fine Needle Aspiration Thyroid left Sign In: A Moment of CARE was completed. Personnel directly involved with the procedure wore the appropriate PPE (Personal Protective Equipment). No special equipment needed. Patient/Surrogate Stated/Verified: PATIENT VERIFIED(optional for EMERGENT procedures): Patient name, Date of , Relevant allergies, and The intended procedure Time Out Communication: Intended patient and procedure match the source documents. Consent documented and matches the intended procedure. Relevant labs, photos, and/or imaging studies have been reviewed. Correct side/site marked and visible. Medications required for procedure verified. No fire risk assessment and interventions applicable. No implant(s) inserted. Sign Out: SIGN OUT (optional for EMERGENT procedures): All specimen containers correctly labeled. All instruments, equipment, possible retained foreign bodies accounted for. Post-procedure follow-up management communicated and Plan of Care Visit completed when applicable. ZELALEM Sanchez III, MD 07/22/2022 3:48 PM Signed Preoperative diagnosis: Multinodular goiter Postoperative diagnosis: The same Procedure: Ultrasound-guided fine-needle aspiration of dominant left thyroid nodule Surgeon: Brandon Procedure: Ultrasound of the left thyroid revealed the nodule in question. Prepped the skin with alcohol. I injected 1% lidocaine plain. Under ultrasound guidance I took 3 passes with a 22-gauge needle. I plated these on glass slides. Sterile dressings were applied. The patient tolerated the procedure well. Mirela Kent RN 07/22/2022 3:32 PM Signed The following instructions are important for you related to your office visit today with the [facility] General Surgeons. Instructions After THYROID FINE NEEDLE ASPIRATION Please do not take aspirin or other blood thinners for the next few days. If you have bleeding from the needle site, hold pressure with a clean gauze. If the bleeding continues, contact our office immediately. I recommend taking Advil or Tylenol for the discomfort. An ice pack may improve your discomfort to the area. Contact our office immediately if you have any questions or concerns @ [phone]. Please make an appointment to follow up in one week with your physician and thank you for choosing the [facility]. If you note any additional difficulties, questions, or concerns, you should contact our office immediately @ [phone] and ask to be transferred to the General Surgery department. Referring Provider: SELF [[id number]] Allergies As of Date: 07/22/2022 Noted Allergy Reaction BEES 02/07/2006 milk products [Other] 02/07/2006 Date Reviewed: 07/22/2022 Reviewed by: Mirela Kent RN - Fully Assessed Reason for Visit: Procedure [88] Cmt: Left thyroid FNA Primary Visit Diagnosis:Multinodular goiter [E04.2] Order(s):US THYROID BIOPSY LEFT (POC) SURG USE ONLY [2807296] Order #: [id number]. #:[id number]: 1 SURGICAL PATHOLOGY [ISE8815] Order #: [id number]. #:[id number] Prescriptions as of 07/22/2022 - doxazosin (CARDURA) 2 mg tablet Take 2 mg by mouth once daily. - ferrous sulfate 325 mg (65 mg iron) tablet Take 1 tablet by mouth every other day. Problem List As Of Date: 07/22/2022 (None) Other instructions from your clinician: The following instructions are important for you related to your office visit today with the [facility] General Surgeons. Instructions After THYROID FINE NEEDLE ASPIRATION Please do not take aspirin or other blood thinners for the next few days. If you have bleeding from the needle site, hold pressure with a clean gauze. If the bleeding continues, contact our office immediately. I recommend taking Advil or Tylenol for the discomfort. An ice pack may improve your discomfort to the area. Contact our office immediately if you have any questions or concerns @ [phone]. Please make an appointment to follow up in one week with your physician and thank you for choosing the [facility]. If you note any additional difficulties, questions, or concerns, you should contact our office immediately @ [phone] and ask to be transferred to the General Surgery department. Encounter Status:Closed by EZEKIEL TAYLOR on 07/22/22 Normal [facility] THYROID BIOPSY LEFT (POC) SURG USE ONLYon 07-22-2022 [facility] CNOVon 07-12-2022 CNOV Office Visit (GENSWS ) MIGUE PURDY ([id number]) 1960 M Date Time Provider Department 07/12/22 8:15 AM EZEKIEL TAYLORS During your visit today, we recorded the following information about you: Temperature Pulse Blood pressure Weight 98.4 degrees 88/minute 112/72 62.6 kg Height 1.753 m Herminia Avalos LPN 07/12/2022 8:11 AM Signed REVIEW OF SYSTEMS: General: The patient denies fatigue, denies weight loss, denies weight gain, denies feeling hot, and denies feelings of cold. Eyes: The patient denies glaucoma, denies eye injury/surgery, does not wear glasses or contacts. Ear/Nose/Throat: The patient denies allergies, denies hayfever, denies ear infections, and denies bloody noses. Cardiovascular: The patient denies chest pain, denies heart disease, denies high blood pressure,denies cardiac stent, denies prior heart attack, denies irregular heart beat, denies high cholesterol, denies poor circulation, denies heart failure, other cardiac issues, denies claudication, denies cold feet, denies peripheral arterial stent. Respiratory: The patient denies tuberculosis, denies pneumonia, denies frequent cough, denies pulmonary embolism, denies shortness of breath, and denies coughing up blood. Gastrointestinal: The patient denies difficulty swallowing, denies acid reflux, denies ulcers, denies vomiting, denies jaundice/hepatitis, denies gallbladder problems, denies black or tarry stools, denies hemorrhoids, denies bleeding from rectum, denies diverticulitis, denies constipation, denies diarrhea, denies loss of stool control, and denies hernias. Kidney/Bladder: The patient notes kidney stones, denies urine infections, and denies bloody urine. Skin: The patient notes a history of skin cancer, denies bleeding/changing moles, and denies a history of skin rash. Neurologic: The patient denies a history of epilepsy/convulsions, denies headaches, denies head/spinal injuries, and denies stroke/TIA. Psychiatric: The patient denies psychiatric medications, denies depression, and denies voices, denies substance abuse. Endocrine: The patient denies thyroid disorders, denies diabetes, and denies hormonal problems. Hematologic: The patient denies a history of bruising, denies bleeding, and denies anemia, denies blood clots. Infections: The patient notes a history of measles and mumps, denies rheumatic fever, and denies sexually transmitted diseases. Musculoskeletal: The patient denies back pain/injury, denies back problems, denies sciatica, denies knee/foot trouble, denies arthritis, or denies gout. When was patient's last Mammogram screening? N/A Last Colonoscopy: 2019 GREGORIO Lerner III, MD 07/12/2022 8:46 AM Signed HISTORY AND PHYSICAL Migue Purdy 1960 REFERRING PHYSICIAN: Lashonda Anguiano DO CHIEF COMPLAINT: Consult (Thyroid biopsy) HPI: The patient is a 62 year old male with a complaint of a left thyroid nodule. This thyroid nodule was found on Ultrasound by [facility]. Patient has a 1.7 cm nodule in the left lobe of the thyroid gland. He also has several small subcentimeter nodules in both the left and right thyroid. the patient denies pain, denies difficulty swallowing, deniesrapid enlargement of the neck, deniesdysphagia, denies a change in the voice, denies hot or cold intolerence. The patient has not a prior history of neck radiation treatment. The patient is being seen by me today at the request of No primary care provider on file. for my opinion and advice regarding Multinodular goiter (primary encounter diagnosis). PAST MEDICAL HISTORY Diagnosis Date Disorder of thyroid Kidney stones Skin cancer PAST SURGICAL HISTORY Procedure Laterality Date PAST SURGICAL HISTORY OF repair a broken clavical PAST SURGICAL HISTORY OF Right repair a broke femur PAST SURGICAL HISTORY OF bladder stone removed Current Outpatient Medications Medication Sig Dispense Refill doxazosin (CARDURA) 2 mg tablet Take 2 mg by mouth once daily. ferrous sulfate 325 mg (65 mg iron) tablet Take 1 tablet by mouth every other day. No current facility-administered medications for this visit. ALLERGIES: [employer] [Other] PERSONAL HISTORY: Social History Tobacco Use Smoking status: Never Smokeless tobacco: Never Vaping Use Vaping Use: Never used Substance Use Topics Alcohol use: Not Currently Comment: seldom Drug use: Never FAMILY HISTORY: FAMILY HISTORY Problem Relation Age of Onset No Known Problems Mother Asthma Father Lung Cancer Father REVIEW OF SYMPTOMS: The review of systems data was entered by the nurse and reviewed by me Nursing Notes: Herminia Avalos LPN 07/12/2022 8:11 AM Signed REVIEW OF SYSTEMS: General: The patient denies fatigue, denies weight loss, denies weight gain, denies feeling hot, a (more content not included)... Normal [facility] No Panel Informationon 07-10 Prostate Specific Antigen Total 7.06 ng/mL 0.0-4.[address] [facility] Work Phone: Comment on above: This test was perfor med using the TPSA assay method for [employer] chemistry system. Values obtained with differentassay methods cannot be used interchangably.When changing PSA assays in the course of monitoring apatient, additional sequential testing should be carriedout to confirm baseline values. CBC W/AUTO DIFF WBC ([id number])O rdered By: Dean on 05-02-2022 Basophils (Bld) [#/Vol] 0.0 10*3/uL Normal 0.0-0.2 [facility] Work Phone: Comment on above: PATIENT NOT FASTINGP ERFORMED BY: STACY [facility] Qoejqm37[address] [place] [id number] Basophils/100 WBC (Bld) 1 % Normal [facility]; [facility] Work Phone: Comment on above: PATIENT NOT FASTINGP ERFORMED BY: CB [facility] Wtxzlx2759 [address]Dublin [place] [id number] Eosinophils (Bld) [#/Vol] 0.2 10*3/uL Normal 0.0-0.4 [facility] Work Phone: Comment on above: PATIENT NOT FASTINGP ERFORMED BY: CB [facility] Sxtsio1944 [address]Dublin [place] [id number] Eosinophils/100 WBC (Bld) 3 % Normal [facility]; [facility] Work Phone: Comment on above: PATIENT NOT FASTINGP ERFORMED BY: CB [facility] Bufjpc6239 [address]Dublin [place] [id number] Erythrocyte distribution width (RBC) [Ratio] 12.9 % Normal 11.6-15.4 [facility] Work Phone: Comment on above: PATIENT NOT FASTINGP ERFORMED BY: CB [facility] Nlavqd4514 [address]Dublin [place] [id number] Hematocrit (Bld) [Volume fraction] 37.7 % Normal 37.5-51.0 [facility] Work Phone: Comment on above: PATIENT NOT FASTINGP ERFORMED BY: CB [facility] Zxmlgf0943 [address]Dublin [place] [id number] Hemoglobin (Bld) [Mass/Vol] 12.1 g/dL Abnormal 13.0-17.7 [facility] Work Phone: Comment on above: PATIENT NOT FASTINGP ERFORMED BY: CB [facility] Aiaqvt8710 [address] [place] [id number] Immature granulocytes (Bld) [#/Vol] 0.0 10*3/uL Normal 0.0-0.1 [facility] Work Phone: Comment on above: PATIENT NOT FASTINGP ERFORMED BY: STACY Wilson6[address]Dublin [place] [id number] Immature granulocytes/100 WBC (Bld) 0 % Normal [facility]; [facility] Work Phone: Comment on above: PATIENT NOT FASTINGP ERFORMED BY: CB [facility] UnionXusfnr[address] [facility] [place] [id number] Lymphocytes (Bld) [#/Vol] 0.9 10*3/uL Normal 0.7-3.1 [facility] Work Phone: Comment on above: PATIENT NOT FASTINGP ERFORMED BY: STACY [facility] Zlbxgy[address] [facility] [id number] Lymphocytes/100 WBC (Bld) 16 % Normal [facility]; [facility] Work Phone: Comment on above: PATIENT NOT FASTINGP ERFORMED BY: [facility] Xdlosn[address] [facility] [id number] MCH (RBC) [Entitic mass] 30.1 pg Normal 26.6-33.0 [facility] Work Phone: Comment on above: PATIENT NOT FASTINGP ERFORMED BY: [facility] UnionTcmdnw[address] [facility]in [place] [id number] MCHC (RBC) [Mass/Vol] 32.1 g/dL Normal 31.5-35.7 [facility] Work Phone: Comment on above: PATIENT NOT FASTINGP ERFORMED BY: CB [facility] Lmkipr[address] [facility] [place] [id number] MCV (RBC) [Entitic vol] 94 fL Normal 79-97 [facility]; [facility] Work Phone: Comment on above: PATIENT NOT FASTINGP ERFORMED BY: CB [facility] [address]vycz[address] [facility] [place] [id number] Monocytes (Bld) [#/Vol] 0.6 10*3/uL Normal 0.1-0.9 [facility] Work Phone: Comment on above: PATIENT NOT FASTINGP ERFORMED BY: STACY [facility] Betygl9720 [address]Dublin [place] [id number] Monocytes/100 WBC (Bld) 10 % Normal [facility]; [facility] Work Phone: Comment on above: PATIENT NOT FASTINGP ERFORMED BY: CB [facility] Ogugev6748 [address] [place] [id number] Neutrophils (Bld) [#/Vol] 3.9 10*3/uL Normal 1.4-7.0 [facility] Work Phone: Comment on above: PATIENT NOT FASTINGP ERFORMED BY: STACY [facility] Bpzkyo4096 [address] [place] [id number] Neutrophils/100 WBC (Bld) 70 % Normal [facility]; [facility] Work Phone: Comment on above: PATIENT NOT FASTINGP ERFORMED BY: CB [facility] Knzdmt5965 [address] [place] [id number] Platelets (Bld) [#/Vol] 221 10*3/uL Normal 150-450 [facility]; [facility] Work Phone: Comment on above: PATIENT NOT FASTINGP ERFORMED BY: CB [facility] Iootgp5395 [address] [place] [id number] RBC (Bld) [#/Vol] 4.02 10*6/uL Abnormal 4.14-5.80 [facility]; [facility] Work Phone: Comment on above: PATIENT NOT FASTINGP ERFORMED BY: CB [facility] Lrbftr1611 [address] [place] [id number] WBC (Bld) [#/Vol] 5.5 10*3/uL Normal 3.4-10.8 Compre [facility]; [facility] Work Phone: Comment on above: PATIENT NOT FASTINGP ERFORMED BY: CB [facility] Bxumyf1025 [address]Dublin [place] [id number] METABOLIC PANEL, COMPREHENSI VE ([id number])Ordered By: Dean on 05-02-2022 Albumin [Mass/Vol] 4.1 g/dL Normal 3.8-4.8 [facility]; [facility] Work Phone: Comment on above: PATIENT NOT FASTINGP ERFORMED BY: CB [facility] Nbhyrf1499 [address]Dublin [place] [id number] Albumin/Globulin [Mass ratio] 2.0 {ratio} Normal 1.2-2.2 [facility]; [facility] Work Phone: Comment on above: PATIENT NOT FASTINGP ERFORMED BY: CB [facility] Abshoy3381 [address]Dublin [place] [id number] ALP [Catalytic activity/Vol] 160 U/L Abnormal 44-121 [facility]; [facility] Work Phone: Comment on above: PATIENT NOT FASTINGP ERFORMED BY: CB [facility] Nmgvjh7714 [address]Dublin [place] [id number] ALT [Catalytic activity/Vol] 30 U/L Normal 0-44 [facility]; [facility] Work Phone: Comment on above: PATIENT NOT FASTINGP ERFORMED BY: CB [facility] Kiflof1480 [address]Dublin [place] [id number] AST [Catalytic activity/Vol] 19 U/L Normal 0-40 [facility]; [facility] Work Phone: Comment on above: PATIENT NOT FASTINGP ERFORMED BY: CB [facility] Mteyod0267 [address]Dublin [place] [id number] Bilirubin [Mass/Vol] 0.3 mg/dL Normal 0.0-1.2 [facility]; [facility] Work Phone: Comment on above: PATIENT NOT FASTINGP ERFORMED BY: CB [facility] Vjhdjw7793 [address]Dublin [place] [id number] Calcium [Mass/Vol] 9.3 mg/dL Normal 8.6-10.2 [facility]; [facility] Work Phone: Comment on above: PATIENT NOT FASTINGP ERFORMED BY: CB [facility] Etiklv5581 [address] [place] [id number] Chloride [Moles/Vol] 102 mmol/L Normal 96-106 [facility]; [facility] Work Phone: Comment on above: PATIENT NOT FASTINGP ERFORMED BY: CB [facility] Mwrwuw7697 [address] [place] [id number] CO2 [Moles/Vol] 27 mmol/L Normal 20-29 [facility]pre[facility]; [facility] Work Phone: Comment on above: PATIENT NOT FASTINGP ERFORMED BY: CB [facility] Hmrspt3479 [address] [place] [id number] Creatinine [Mass/Vol] 0.95 mg/dL Normal 0.76-1.27 [facility]; [facility] Work Phone: Comment on above: PATIENT NOT FASTINGP ERFORMED BY: CB [facility] Vneead8081 [address]bl[address] [place] [id number] GFR/1.73 sq M.predicted among non-blacks MDRD (S/P/Bld) [Vol rate/Area] 90 mL/min/{1.73_m2} Normal Comprehensiv e [facility]; [facility] Work Phone: Comment on above: PATIENT NOT FASTINGP ERFORMED BY: CB [facility] Jisptm4410 [address] [place] [id number] Globulin (S) [Mass/Vol] 2.1 g/dL Normal 1.5-4.5 [facility]; [facility] Work Phone: Comment on above: PATIENT NOT FASTINGP ERFORMED BY: CB [facility] Mlsduy0572 [address] [place] [id number] Glucose [Mass/Vol] 103 mg/dL Abnormal 65-99 [facility]; [facility] Work Phone: Comment on above: PATIENT NOT FASTINGP ERFORMED BY: CB [facility] Tzwica4646 [address] [place] [id number] Potassium [Moles/Vol] 4.3 mmol/L Normal 3.5-5.2 [facility]; [facility] Work Phone: Comment on above: PATIENT NOT FASTINGP ERFORMED BY: STACY [facility] WilsonQbpnyg[address] [facility] [id number] Protein [Mass/Vol] 6.2 g/dL Normal 6.0-8.5 [facility]; [facility] Work Phone: Comment on above: PATIENT NOT FASTINGP ERFORMED BY: STACY [facility] Awiwek[address] [facility] [id number] Sodium [Moles/Vol] 141 mmol/L Normal 134-144 [facility]; [facility] Work Phone: Comment on above: PATIENT NOT FASTINGP ERFORMED BY: STACY [facility] Wkhlce[address] [facility] [id number] Urea nitrogen [Mass/Vol] 22 mg/dL Normal 8-27 [facility]; [facility] Work Phone: Comment on above: PATIENT NOT FASTINGP ERFORMED BY: STACY [facility] Yiwmdj[address] [facility] [id number] Urea nitrogen/Creatini ne [Mass ratio] 23 mg/mg Normal 10-24 [facility]; [facility] Work Phone: Comment on above: PATIENT NOT FASTINGP ERFORMED BY: [facility]co[facility] UnionSdpooa1732 [facility] [id number] Basophil percentageon 2021 Chloride [Moles/Vol] 107 mmol/L 98-[address] [facility] Work Phone: Glucose [Mass/Vol] 99 mg/dL 74-[address] [facility] Work Phone: Potassium [Moles/Vol] 4.1 mmol/L 3.5-5.[address] [facility] Work Phone: Sodium [Moles/Vol] 140 mmol/L 136-[address] [facility] Work Phone: Blood hemoglobin measurement (mass/volume)on 04-22-2022 Hemoglobin (Bld) [Mass/Vol] 11.3 g/dL 13.0-16.[address] [facility] Work Phone: Hematocrit Auto (Bld) [Volum e fraction]on 04-22-2022 Hematocrit (Bld) [Volume fraction] 36.1 % 40-[address] [facility] Work Phone: Laboratory - Chemistry and C hemistry - challengeon 04-22-2022 CO2 [Moles/Vol] 30.0 mmol/L 21.0-32.[address] [facility] Work Phone: Urea nitrogen/Creatini ne [Mass ratio] 34.7 mg/mg 10-[address] [facility] Work Phone: No Panel Informationon 04-22 Estimated Creatinine Clearance Calc 75.36 ml/min [facility] Work Phone: Estimated GFR (MDRD) Amer 107 mL/min >[address] [facility] Work Phone: Comment on above: GFR Calc Estimated GFR (MDRD) Non-Af Amer 88 mL/min >[address] [facility] Work Phone: Comment on above: Non- GFR Calc Serum or plasma calcium jigna urement (mass/volume)on 04-22-2022 Calcium [Mass/Vol] 9.4 mg/dL 8.5-10.[address] [facility] Work Phone: Serum or plasma creatinine m easurement (mass/volume)on 04-22-2022 Creatinine [Mass/Vol] 0.92 mg/dL 0.70-1.[address] [facility] Work Phone: Comment on above: The validity of the calculated GFR & GFRAA in patients over 70 years has not been determined. Clinical correlation is essential. Serum or plasma urea nitroge n measurement (mass/volume)on 04-22-2022 Urea nitrogen [Mass/Vol] 32 mg/dL 7-[address] [facility] Work Phone: Thin prep Papanicolaou smear with manual screeningon 04-22-2022 Thin prep Papanicolaou smear with manual screening 3 5-[address] [facility] Work Phone: Whole blood hemoglobin A1c/t otal hemoglobin ratio (mass fraction)on 04-22-2022 HbA1c (Bld) [Mass fraction] 4.7 % 3.8-5.[address] [facility] Work Phone: Comment on above: Normal < 5.7 % Predi abetic 5.7 - 6.4 % Diabetic >or= 6.5 % Please note range changes. Absolute lymphocyte counton 04-12-2022 Lymphocytes Auto (Unsp spec) [#/Vol] 0.80 10*3/uL 0.83-4.[address] [facility] Work Phone: Basophil percentageon 2021 Basophil percentage 0 SEEN /hpf 0-[address] [facility] Work Phone: Basophils/100 WBC (Bld) 0.5 % 0-[address] [facility] Work Phone: Bilirubin [Mass/Vol] 1.30 mg/dL 0.20-1.[address] [facility] Work Phone: Comment on above: For patients on eltr ombopag therapy, use of Dimension [place] TBIL is not recommended. Eosinophils/100 WBC (Bld) 3.0 % 0-[address] [facility] Work Phone: Neutrophils (Bld) [#/Vol] 6.6 10*3/uL 2.0-7.[address] [facility] Work Phone: Neutrophils/100 WBC (Bld) 67.9 % 47-[address] [facility] Work Phone: Protein [Mass/Vol] 6.2 g/dL 6.4-8.[address] [facility] Work Phone: WBC (Bld) [#/Vol] 9.7 10*3/uL 4.4-11.0 [facility] Work Phone: Bilirubin Test strip Ql (U)o n 04-12-2022 Bilirubin Ql (U) Negative Negative [facility] Work Phone: Blood erythrocytes count (nu mber/volume)on 04-12-2022 RBC (Bld) [#/Vol] 3.12 10*6/uL 4.6-6.2 [facility] Work Phone: Blood lymphocytes/100 leukoc yteson 04-12-2022 Lymphocytes/100 WBC (Bld) 8.3 % 19-[address] [facility] Work Phone: Blood manual differential co mment interpretation (narrative result)on 04-12-2022 Manual differential comment Darshan (Bld) [Interp] COMMENT [facility] Work Phone: Comment on above: MONOCYTOSIS. Blood monocytes/100 leukocyt eson 04-12-2022 Monocytes/100 WBC (Bld) 18.1 % 0-[address] [facility] Work Phone: Blood platelet mean volumeon 04-12-2022 Platelet mean volume (Bld) [Entitic vol] 11.1 fL 6.2-12.[address] [facility] Work Phone: Determination of erythrocyte mean corpuscular volume (MCV)on 04-12-2022 MCV (RBC) [Entitic vol] 89.4 fL 80-[address] [facility] Work Phone: Ketones Test strip Ql (U)on 04-12-2022 Ketones Ql (U) Negative Negative [facility] Work Phone: Laboratory - Chemistry and C hemistry - challengeon 04-12-2022 Sodium (U) [Moles/Vol] 60 mmol/L Not Establ. [facility] Work Phone: ALP [Catalytic activity/Vol] 50 U/L 45-[address] [facility] Work Phone: ALT [Catalytic activity/Vol] 30 U/L 16-[address] [facility] Work Phone: Globulin (S) [Mass/Vol] 3.3 g/dL 2.2-4.[address] [facility] Work Phone: Laboratory - Hematology and Cell countson 04-12-2022 Erythrocyte distribution width (RBC) [Entitic vol] 42.1 fL 35.1-43.[address] [facility] Work Phone: Erythrocyte distribution width (RBC) [Ratio] 13.0 % 11.6-14.[address] [facility] Work Phone: Immature granulocytes/100 WBC (Bld) 2.200 % 0.0-0.[address] [facility] Work Phone: Comment on above: IG% - Immature Granu locytes (promyelocytes, myelocytes and metamyelocytes) > 1% indicates that a LEFT SHIFT is Present. MCH (RBC) [Entitic mass] 30.4 pg 27.0-32.[address] [facility] Work Phone: Nucleated RBC/100 WBC (Bld) [Ratio] 0 % 0-[address] [facility] Work Phone: MCHC Auto (RBC) [Mass/Vol]on 04-12-2022 MCHC (RBC) [Mass/Vol] 34.1 g/dL 32-[address] [facility] Work Phone: Mucus LM Ql (Urine sed)on Mucus Ql (Urine sed) 0 SEEN /hpf [facility] Work Phone: Nitrite Test strip Ql (U)on 04-12-2022 Nitrite Ql (U) Negative Negative [facility] Work Phone: Platelets bldon 04-12-2022 Platelets (Bld) [#/Vol] 159 10*3/uL 150-[address] [facility] Work Phone: Protein Test strip Ql (U)on 04-12-2022 Protein Ql (U) 30 mg/dl Negative [facility] Work Phone: Serum or plasma albumin jigna urement (mass/volume)on 04-12-2022 Albumin [Mass/Vol] 2.9 g/dL 3.2-5.[address] [facility] Work Phone: Serum or plasma albumin/glob ulin mass ratioon 04-12-2022 Albumin/Globulin [Mass ratio] 0.9 {ratio} 0.9-2.[address] [facility] Work Phone: Squamous epithelial cells de tection in urine sediment by light microscopyon 04-12-2022 Epithelial cells.squamous LM Ql (Urine sed) 0 SEEN /hpf 0-[address] [facility] Work Phone: Thin prep Papanicolaou smear with manual screeningon 04-12-2022 Thin prep Papanicolaou smear with manual screening 264 mOsm/KG 280-[address] [facility] Work Phone: Thin prep Papanicolaou smear with manual screening 33 U/L 15-[address] [facility] Work Phone: Urine blood detectionon 03-29 RBC Ql (U) 50 /ul Negative [facility] Work Phone: RBC Ql (U) 0-5 SEEN /hpf 0-[address] [facility] Work Phone: Urine clarityon 04-12-2022 Clarity (U) Sl. Cloudy Clear [facility] Work Phone: Urine color determinationon 04-12-2022 Color (U) Yellow Yellow [facility] Work Phone: Urine glucose detectionon Glucose Ql (U) Normal mg/dl Normal [facility] Work Phone: Urine leukocyte esterase det ection by dipstickon 04-12-2022 Leukocyte esterase Test strip Ql (U) Negative Negative [facility] Work Phone: Urine osmolality measurement on 04-12-2022 Osmolality (U) [Osmolality] 600 mOsm/KG >[address] [facility] Work Phone: Comment on above: Normal Urine Referen ce Ranges Random: 50 - 1200 mOsm/kg H20 depending on fluid intake Random: >850 mOsm/kg after 12 hour fluid restriction 24 hour: ~300 - 900 mOsm/kg H2O Urine pHon 04-12-2022 pH (U) 6.0 [pH] 5.0 - 8.[address] [facility] Work Phone: Urine sediment bacteria coun t by microscopy (number/high power field)on 04-12-2022 Bacteria LM.HPF (Urine sed) [#/Area] 0 /[HPF] None Seen [facility] Work Phone: Urine specific gravity measu rementon 04-12-2022 Specific gravity (U) [Rel density] 1.020 1.002-1.[address] [facility] Work Phone: Urobilinogen Auto test strip Ql (U)on 04-12-2022 Urobilinogen Ql (U) Normal mg/dl Normal [facility] Work Phone: Absolute lymphocyte counton 04-10-2022 Lymphocytes Auto (Unsp spec) [#/Vol] 0.59 10*3/uL 0.83-4.[address] [facility] Work Phone: Basophil percentageon 2021 Basophil percentage 2.8 mg/dL 2.5-4.[address] [facility] Work Phone: Basophils/100 WBC (Bld) 0.3 % 0-[address] [facility] Work Phone: Chloride [Moles/Vol] 93 mmol/L 98-[address] [facility] Work Phone: Eosinophils/100 WBC (Bld) 2.2 % 0-[address] [facility] Work Phone: Glucose [Mass/Vol] 112 mg/dL 74-[address] [facility] Work Phone: Comment on above: Fasting Glucose resu lt from 100 to 125 mg/dL suggests IMPAIRED HOMEOSTASIS per A.D.A. criteria. Neutrophils (Bld) [#/Vol] 5.9 10*3/uL 2.0-7.[address] [facility] Work Phone: Neutrophils/100 WBC (Bld) 75.1 % 47-[address] [facility] Work Phone: Potassium [Moles/Vol] 3.3 mmol/L 3.5-5.[address] [facility] Work Phone: Sodium [Moles/Vol] 129 mmol/L 136-[address] [facility] Work Phone: WBC (Bld) [#/Vol] 7.9 10*3/uL 4.4-11.0 [facility] Work Phone: Blood erythrocytes count (nu mber/volume)on 04-10-2022 RBC (Bld) [#/Vol] 3.33 10*6/uL 4.6-6.2 [facility] Work Phone: Blood hemoglobin measurement (mass/volume)on 04-10-2022 Hemoglobin (Bld) [Mass/Vol] 10.2 g/dL 13.0-16.[address] [facility] Work Phone: Blood lymphocytes/100 leukoc yteson 04-10-2022 Lymphocytes/100 WBC (Bld) 7.5 % 19-[address] [facility] Work Phone: Blood monocytes/100 leukocyt eson 04-10-2022 Monocytes/100 WBC (Bld) 14.1 % 0-[address] [facility] Work Phone: Blood platelet adequacy dete ction by light microscopyon 04-10-2022 Platelets LM Ql (Bld) MOD DEC ADEQ [facility] Work Phone: Blood platelet mean volumeon 04-10-2022 Platelet mean volume (Bld) [Entitic vol] 12.4 fL 6.2-12.[address] [facility] Work Phone: Determination of erythrocyte mean corpuscular volume (MCV)on 04-10-2022 MCV (RBC) [Entitic vol] 88.3 fL 80-[address] [facility] Work Phone: Hematocrit Auto (Bld) [Volum e fraction]on 04-10-2022 Hematocrit (Bld) [Volume fraction] 29.4 % 40-[address] [facility] Work Phone: Laboratory - Chemistry and C hemistry - challengeon 04-10-2022 CO2 [Moles/Vol] 31.0 mmol/L 21.0-32.[address] [facility] Work Phone: Magnesium [Mass/Vol] 2.1 mg/dL 1.6-2.[address] [facility] Work Phone: Urea nitrogen/Creatini ne [Mass ratio] 22.0 mg/mg 10-[address] [facility] Work Phone: Laboratory - Hematology and Cell countson 04-10-2022 Erythrocyte distribution width (RBC) [Entitic vol] 40.3 fL 35.1-43.[address] [facility] Work Phone: Erythrocyte distribution width (RBC) [Ratio] 12.5 % 11.6-14.[address] [facility] Work Phone: Immature granulocytes/100 WBC (Bld) 0.800 % 0.0-0.[address] [facility] Work Phone: Comment on above: IG% - Immature Granu locytes (promyelocytes, myelocytes and metamyelocytes) > 1% indicates that a LEFT SHIFT is Present. MCH (RBC) [Entitic mass] 30.6 pg 27.0-32.[address] [facility] Work Phone: Nucleated RBC/100 WBC (Bld) [Ratio] 0 % 0-[address] [facility] Work Phone: MCHC Auto (RBC) [Mass/Vol]on 04-10-2022 MCHC (RBC) [Mass/Vol] 34.7 g/dL 32-[address] [facility] Work Phone: No Panel Informationon 04-10 Estimated Creatinine Clearance Calc 87.93 ml/min [facility] Work Phone: Estimated GFR (MDRD) Amer 131 mL/min >[address] [facility] Work Phone: Comment on above: GFR Calc Estimated GFR (MDRD) Non-Af Amer 108 mL/min >[address] [facility] Work Phone: Comment on above: Non- GFR Calc Platelets bldon 04-10-2022 Platelets (Bld) [#/Vol] 83 10*3/uL 150-[address] [facility] Work Phone: Serum or plasma calcium jigna urement (mass/volume)on 04-10-2022 Calcium [Mass/Vol] 8.4 mg/dL 8.5-10.[address] [facility] Work Phone: Serum or plasma creatinine m easurement (mass/volume)on 04-10-2022 Creatinine [Mass/Vol] 0.77 mg/dL 0.70-1.[address] [facility] Work Phone: Comment on above: The validity of the calculated GFR & GFRAA in patients over 70 years has not been determined. Clinical correlation is essential. Serum or plasma urea nitroge n measurement (mass/volume)on 04-10-2022 Urea nitrogen [Mass/Vol] 17 mg/dL 7-[address] [facility] Work Phone: Thin prep Papanicolaou smear with manual screeningon 04-10-2022 Thin prep Papanicolaou smear with manual screening 5 5-[address] [facility] Work Phone: Basophil percentageon 2021 Chloride [Moles/Vol] 109 mmol/L 98-[address] [facility] Work Phone: Glucose [Mass/Vol] 115 mg/dL 74-[address] [facility] Work Phone: Comment on above: Fasting Glucose resu lt from 100 to 125 mg/dL suggests IMPAIRED HOMEOSTASIS per A.D.A. criteria. Potassium [Moles/Vol] 3.9 mmol/L 3.5-5.[address] [facility] Work Phone: Comment on above: Moderate Hemolysis, Result may be falsely increased. Sodium [Moles/Vol] 143 mmol/L 136-[address] [facility] Work Phone: WBC (Bld) [#/Vol] 17.0 10*3/uL 4.4-11.0 [facility] Work Phone: Blood erythrocytes count (nu mber/volume)on 04-06-2022 RBC (Bld) [#/Vol] 4.76 10*6/uL 4.6-6.2 [facility] Work Phone: Blood hemoglobin measurement (mass/volume)on 04-06-2022 Hemoglobin (Bld) [Mass/Vol] 14.5 g/dL 13.0-16.[address] [facility] Work Phone: Blood platelet mean volumeon 04-06-2022 Platelet mean volume (Bld) [Entitic vol] 12.1 fL 6.2-12.[address] [facility] Work Phone: Determination of erythrocyte mean corpuscular volume (MCV)on 04-06-2022 MCV (RBC) [Entitic vol] 93.5 fL 80-[address] [facility] Work Phone: Hematocrit Auto (Bld) [Volum e fraction]on 04-06-2022 Hematocrit (Bld) [Volume fraction] 44.5 % 40-[address] [facility] Work Phone: Laboratory - Chemistry and C hemistry - challengeon 04-06-2022 CO2 [Moles/Vol] 27.0 mmol/L 21.0-32.[address] [facility] Work Phone: Urea nitrogen/Creatini ne [Mass ratio] 27.2 mg/mg 10-[address] [facility] Work Phone: Laboratory - Hematology and Cell countson 04-06-2022 Erythrocyte distribution width (RBC) [Entitic vol] 44.3 fL 35.1-43.[address] [facility] Work Phone: Erythrocyte distribution width (RBC) [Ratio] 13.0 % 11.6-14.[address] [facility] Work Phone: MCH (RBC) [Entitic mass] 30.5 pg 27.0-32.[address] [facility] Work Phone: MCHC Auto (RBC) [Mass/Vol]on 04-06-2022 MCHC (RBC) [Mass/Vol] 32.6 g/dL 32-[address] [facility] Work Phone: No Panel Informationon 04-06 Estimated Creatinine Clearance Calc 71.66 ml/min [facility] Work Phone: Estimated GFR (MDRD) Amer 102 mL/min >[address] [facility] Work Phone: Comment on above: GFR Calc Estimated GFR (MDRD) Non-Af Amer 84 mL/min >[address] [facility] Work Phone: Comment on above: Non- GFR Calc Platelets bldon 04-06-2022 Platelets (Bld) [#/Vol] 177 10*3/uL 150-[address] [facility] Work Phone: Serum or plasma calcium jigna urement (mass/volume)on 04-06-2022 Calcium [Mass/Vol] 8.9 mg/dL 8.5-10.[address] [facility] Work Phone: Serum or plasma creatinine m easurement (mass/volume)on 04-06-2022 Creatinine [Mass/Vol] 0.96 mg/dL 0.70-1.[address] [facility] Work Phone: Comment on above: The validity of the calculated GFR & GFRAA in patients over 70 years has not been determined. Clinical correlation is essential. Serum or plasma urea nitroge n measurement (mass/volume)on 04-06-2022 Urea nitrogen [Mass/Vol] 26 mg/dL 7-[address] [facility] Work Phone: Thin prep Papanicolaou smear with manual screeningon 04-06-2022 Thin prep Papanicolaou smear with manual screening 7 5-[address] [facility] Work Phone: PSA (PROSTATE SPECIFIC ANTIG EN) ([id number])Ordered By: Dean on 01-04-2022 Prostate specific Ag [Mass/Vol] 6.7 ng/mL Abnormal 0.0-4.0 [facility] Work Phone: Comment on above: Clau ECLIA methodol ogy. .According to the [place] [employer], Serum PSA shoulddecrease and remain at undetectable levels after radicalprostatectomy. The AUA defines biochemical recurrence as an initialPSA value 0.2 ng/mL or greater followed by a subsequent confirmatoryPSA value 0.2 ng/mL or greater.Values obtained with different assay methods or kits cannot be usedinterchangeably. Results cannot be interpreted as absolute evidenceof the presence or absence of malignant disease. PATIENT NOT FASTINGP ERFORMED BY: [facility] [facility] [id number] 2019 Novel Coronavirus (COVI D-19), AMBROICO ([id number])Ordered By: Dean on 10-09-2021 2019 Novel Coronavirus (COVID-19), AMBROCIO ([id number]) Not detected Normal [facility]; [facility] Work Phone: Comment on above: This nucleic acid am plification test was developed and its performancecharacteristics determined by [employer]. Nucleic acidamplification tests include RT-PCR and TMA. This test has not beenFDA cleared or approved. This test has been authorized by FDA underan Emergency Use Authorization (EUA). This test is only authorizedfor the duration of time the declaration that circumstances existjustifying the authorization of the emergency use of in vitrodiagnostic tests for detection of SARS-CoV-2 virus and/or diagnosisof COVID-19 infection under section 564(b)(1) of the Act, 21 U.S.C.360bbb-3(b) (1), unless the authorization is terminated or revokedsooner.When diagnostic testing is negative, the possibility of a falsenegative result should be considered in the context of a patient'srecent exposures and the presence of clinical signs and symptomsconsistent with COVID-19. An individual without symptoms of COVID-19and who is not shedding SARS-CoV-2 virus would expect to have anegative (not detected) result in this assay. PATIENT NOT FASTINGP ERFORMED BY: [facility] [facility] [id number] INHOUSE COVID 19 (ONLY) RAPI D ([id number])Ordered By: EITAN Cali on 10-09-2021 SARS-CoV-2 (COVID-19) RNA AMBROCIO+probe Ql (Unsp spec) Negative Normal [facility]; [facility] Work Phone: LIPID PANEL ([id number])Ordered B y: Dean on 07-26-2021 Cholesterol [Mass/Vol] 172 mg/dL Normal 100-199 [facility]; [facility] Work Phone: Comment on above: PATIENT WAS FASTINGP ERFORMED BY: CB [facility] Anuyvc00[address]Dublin [place] [id number]; appt / Cholesterol in HDL [Mass/Vol] 43 mg/dL Normal [facility]; [facility] Work Phone: Comment on above: PATIENT WAS FASTINGP ERFORMED BY: CB [facility] Nerosl0741 [address] RoadDublin [place] [id number]; appt 11/ Triglyceride [Mass/Vol] 93 mg/dL Normal 0-149 [facility]; [facility] Work Phone: Comment on above: PATIENT WAS FASTINGP ERFORMED BY: CB [facility] Byoqog9854 [address] RoadDublin [place] [id number]; appt 11/ LIPID PANEL (53781) 17 mg/dL Normal 5-40 [facility]; [facility] Work Phone: Comment on above: PATIENT WAS FASTINGP ERFORMED BY: CB [facility] Uzhige5796 [address] RoadDublin [place] [id number]; appt / LIPID PANEL (14295) 112 mg/dL Abnormal 0-99 [facility]; [facility] Work Phone: Comment on above: PATIENT WAS FASTINGP ERFORMED BY: CB [facility] Sfdxrv4572 [address]Dublin [place] [id number]; appt 11/5 LIPID PANEL (60372) 2.6 {ratio} Normal 0.0-3.6 [facility]; [facility] Work Phone: Comment on above: LDL/HDL Ratio Men Wo men 1/2 Avg.Risk 1.0 1.5 Avg.Risk 3.6 3.2 2X Avg.Risk 6.2 5.0 3X Avg.Risk 8.0 6.1 PATIENT WAS FASTINGP ERFORMED BY: CB [facility] Uxvukj2222 [address] RoadDublin [place] [id number]; appt 11/5 METABOLIC PANEL, COMPREHENSI VE ([id number])Ordered By: Dean on 07-26-2021 Albumin [Mass/Vol] 4.5 g/dL Normal 3.8-4.8 [facility]; [facility] Work Phone: Comment on above: PATIENT WAS FASTINGP ERFORMED BY: STACY [facility] Wejnpb1071 [address]Dublin [place] [id number] Albumin/Globulin [Mass ratio] 2.0 {ratio} Normal 1.2-2.2 [facility]; [facility] Work Phone: Comment on above: PATIENT WAS FASTINGP ERFORMED BY: CB [facility] Jlddbd3946 [address]Dublin [place] [id number] ALP [Catalytic activity/Vol] 75 U/L Normal 44-121 [facility]; [facility] Work Phone: Comment on above: Please note refere nce interval change PATIENT WAS FASTINGP ERFORMED BY: CB [facility] Pmhfdi4[address]Dublin [place] [id number] ALT [Catalytic activity/Vol] 20 U/L Normal 0-44 [facility]; [facility] Work Phone: Comment on above: PATIENT WAS FASTINGP ERFORMED BY: CB [facility] Tcugss1476 [address]Dublin [place] [id number] AST [Catalytic activity/Vol] 21 U/L Normal 0-40 [facility]; [facility] Work Phone: Comment on above: PATIENT WAS FASTINGP ERFORMED BY: CB [facility] Jymdig668[address]Dublin [place] [id number] Bilirubin [Mass/Vol] 0.5 mg/dL Normal 0.0-1.2 [facility]; [facility] Work Phone: Comment on above: PATIENT WAS FASTINGP ERFORMED BY: CB [facility] Wgwlec8737 [address]Dublin [place] [id number] Calcium [Mass/Vol] 9.4 mg/dL Normal 8.6-10.2 [facility]; [facility] Work Phone: Comment on above: PATIENT WAS FASTINGP ERFORMED BY: CB [facility] Uaawkr97[address]Dublin [place] [id number] Chloride [Moles/Vol] 101 mmol/L Normal 96-106 [facility]; [facility] Work Phone: Comment on above: PATIENT WAS FASTINGP ERFORMED BY: STACY Wilson[address] Connie PastranaNovant Health [facility] [id number] CO2 [Moles/Vol] 29 mmol/L Normal 20-29 [facility]; [facility] Work Phone: Comment on above: PATIENT WAS FASTINGP ERFORMED BY: STACY PastranaNovant Health [facility] [id number] Creatinine [Mass/Vol] 1.08 mg/dL Normal 0.76-1.27 [facility]; [facility] Work Phone: Comment on above: PATIENT WAS FASTINGP ERFORMED BY: STACY Wilson6[address] Connie PastranaNovant Health [facility] [id number] GFR/1.73 sq M.predicted among blacks CKD-EPI (S/P/Bld) [Vol rate/Area] 85 mL/min/1.73 Normal [facility]; [facility] Work Phone: Comment on above: In accordance with recommendations from the NKF-ASN Task force, [facility] is in the process of updating its eGFR calculation to the 2020 CKD-EPI creatinine equation that estimates kidney function without a race variable. PATIENT WAS FASTINGP ERFORMED BY: STACY Wilson6[address] Connie PastranaNovant Health [facility] [id number] GFR/1.73 sq M.predicted among non-blacks CKD-EPI (S/P/Bld) [Vol rate/Area] 73 mL/min/1.73 Normal [facility]; [facility] Work Phone: Comment on above: PATIENT WAS FASTINGP ERFORMED BY: STACY Wilson[address] [facility] [id number] Globulin (S) [Mass/Vol] 2.3 g/dL Normal 1.5-4.5 [facility]; [facility] Work Phone: Comment on above: PATIENT WAS FASTINGP ERFORMED BY: STACY Wilson[address] [facility] [id number] Glucose [Mass/Vol] 89 mg/dL Normal 65-99 [facility]; [facility] Work Phone: Comment on above: PATIENT WAS FASTINGP ERFORMED BY: STACY [facility] Qdhpnt7240 [address]Dublin [place] [id number] Potassium [Moles/Vol] 4.4 mmol/L Normal 3.5-5.2 [facility]; [facility] Work Phone: Comment on above: PATIENT WAS FASTINGP ERFORMED BY: CB [facility] Yxcajj6[address]Dublin [place] [id number] Protein [Mass/Vol] 6.8 g/dL Normal 6.0-8.5 [facility]; [facility] Work Phone: Comment on above: PATIENT WAS FASTINGP ERFORMED BY: [facility] Luwgfz8016 [address]Dublin [place] [id number] Sodium [Moles/Vol] 143 mmol/L Normal 134-144 [facility]; [facility] Work Phone: Comment on above: PATIENT WAS FASTINGP ERFORMED BY: [facility] Oghoan4[address]Dublin [place] [id number] Urea nitrogen [Mass/Vol] 17 mg/dL Normal 8-27 [facility]; [facility] Work Phone: Comment on above: PATIENT WAS FASTINGP ERFORMED BY: [facility] Ceuxcn9[address]Dublin [place] [id number] Urea nitrogen/Creatini ne [Mass ratio] 16 mg/mg Normal 10-24 [facility]; [facility] Work Phone: Comment on above: PATIENT WAS FASTINGP ERFORMED BY: [facility] Dnhfqk4672 [address]Dublin [place] [id number] Vitamin D Hydroxy (37463)Ord ered By: Dean on 07-26-2021 25-hydroxyvitamin D [Mass/Vol] 71.2 ng/mL Normal 30.0-100.0 [facility]; [facility] Work Phone: Comment on above: Vitamin D deficiency has been defined by the [place] ofMedicine and an Endocrine Society practice guideline as alevel of serum 25-OH vitamin D less than 20 ng/mL (1,2).The Endocrine Society went on to further define vitamin Dinsufficiency as a level between 21 and 29 ng/mL (2).1. IOM ([place] of Medicine). 2010. Dietary reference intakes for calcium and D. [place]: The National Academies Press.2. Shaka MF, Casa MILLER, Flor SILVEIRA, et al. Evaluation, treatment, and prevention of vitamin D deficiency: an Endocrine Society clinical practice guideline. JCEM. 2010; 96(7):1911-30. PATIENT WAS FASTINGP ERFORMED BY: STACY [employer] Az[address]kt[address] [place] [id number] URINE BROCK CULTURE (EFREM COL COUNT) (56996)Ordered By: Dean on 04-27-2021 Bacteria identified Cx Nom (U) Final report Normal [facility]; [facility] Work Phone: Comment on above: PATIENT NOT FASTINGP ERFORMED BY: [facility] Commandrp Vswlxx[address] [facility] [id number] Information: SRC:UC Bacteria identified Cx Nom (U) NG36 Normal [facility]; [facility] Work Phone: Comment on above: No growth in 36 - 48 hours. PATIENT NOT FASTINGP ERFORMED BY: [facility] Kbeauq[address] [place] [id number] Information: SRC:UC CBC W/AUTO DIFF WBC (06167)O rdered By: Dean on 04-13-2021 Basophils (Bld) [#/Vol] 0.0 10*3/uL Normal 0.0-0.2 [facility]; [facility] Work Phone: Comment on above: PATIENT WAS FASTINGP ERFORMED BY: [facility] Rljnja[address] [place] [id number] Information: NURSE DRAW Basophils/100 WBC (Bld) 1 % Normal [facility]; [facility] Work Phone: Comment on above: PATIENT WAS FASTINGP ERFORMED BY: [place] [id number] [facility] [id number] Information: NURSE DRAW Eosinophils (Bld) [#/Vol] 0.2 10*3/uL Normal 0.0-0.4 [facility]; [facility] Work Phone: Comment on above: PATIENT WAS FASTINGP ERFORMED BY: [address] [id number] Information: NURSE DRAW Eosinophils/100 WBC (Bld) 3 % Normal [facility]; [facility] Work Phone: Comment on above: PATIENT WAS FASTINGP ERFORMED BY: [address] [id number] Information: NURSE DRAW Erythrocyte distribution width (RBC) [Ratio] 12.5 % Normal 11.6-15.4 [facility]; [facility] Work Phone: Comment on above: PATIENT WAS FASTINGP ERFORMED BY: [address] [id number] Information: NURSE DRAW Hematocrit (Bld) [Volume fraction] 46.0 % Normal 37.5-51.0 [facility]; [facility] Work Phone: Comment on above: PATIENT WAS FASTINGP ERFORMED BY: [address] [id number] Information: NURSE DRAW Hemoglobin (Bld) [Mass/Vol] 15.4 g/dL Normal 13.0-17.7 [facility]; [facility] Work Phone: Comment on above: PATIENT WAS FASTINGP ERFORMED BY: [address] [id number] Information: NURSE DRAW Immature granulocytes (Bld) [#/Vol] 0.0 10*3/uL Normal 0.0-0.1 [facility]; [facility] Work Phone: Comment on above: PATIENT WAS FASTINGP ERFORMED BY: [address] [id number] Information: NURSE DRAW Immature granulocytes/100 WBC (Bld) 0 % Normal [facility]; [facility] Work Phone: Comment on above: PATIENT WAS FASTINGP ERFORMED BY: STACY Goode Whsqle6086 [facility] [id number] Information: NURSE DRAW Lymphocytes (Bld) [#/Vol] 1.2 10*3/uL Normal 0.7-3.1 [facility]; [facility] Work Phone: Comment on above: PATIENT WAS FASTINGP ERFORMED BY: [address] [id number] Information: NURSE DRAW Lymphocytes/100 WBC (Bld) 25 % Normal [facility]; [facility] Work Phone: Comment on above: PATIENT WAS FASTINGP ERFORMED BY: [address] [id number] Information: NURSE DRAW MCH (RBC) [Entitic mass] 30.6 pg Normal 26.6-33.0 [facility]; [facility] Work Phone: Comment on above: PATIENT WAS FASTINGP ERFORMED BY: [address] [id number] Information: NURSE DRAW MCHC (RBC) [Mass/Vol] 33.5 g/dL Normal 31.5-35.7 [facility]; [facility] Work Phone: Comment on above: PATIENT WAS FASTINGP ERFORMED BY: [address] [id number] Information: NURSE DRAW MCV (RBC) [Entitic vol] 91 fL Normal 79-97 [facility]; [facility] Work Phone: Comment on above: PATIENT WAS FASTINGP ERFORMED BY: [address] [id number] Information: NURSE DRAW Monocytes (Bld) [#/Vol] 0.6 10*3/uL Normal 0.1-0.9 [facility]; [facility] Work Phone: Comment on above: PATIENT WAS FASTINGP ERFORMED BY: STACY Wilson6[address] [facility] [id number] Information: NURSE DRAW Monocytes/100 WBC (Bld) 12 % Normal [facility]; [facility] Work Phone: Comment on above: PATIENT WAS FASTINGP ERFORMED BY: STACY Goode Dlxpdi[address] [id number] Information: NURSE DRAW Neutrophils (Bld) [#/Vol] 2.8 10*3/uL Normal 1.4-7.0 [facility]; [facility] Work Phone: Comment on above: PATIENT WAS FASTINGP ERFORMED BY: STACY Melendez[address] [id number] Information: NURSE DRAW Neutrophils/100 WBC (Bld) 59 % Normal [facility]; [facility] Work Phone: Comment on above: PATIENT WAS FASTINGP ERFORMED BY: STACY Maria D Ptqwxl6334 [facility] [id number] Information: NURSE DRAW Platelets (Bld) [#/Vol] 182 10*3/uL Normal 150-450 [facility]; [facility] Work Phone: Comment on above: PATIENT WAS FASTINGP ERFORMED BY: STACY [facility]henTwo [facility] Dmtgwt6[address] [id number] Information: NURSE DRAW RBC (Bld) [#/Vol] 5.04 10*6/uL Normal 4.14-5.80 Compr [facility]; [facility] Work Phone: Comment on above: PATIENT WAS FASTINGP ERFORMED BY: STACY Goode Dwcrtb8733 [facility] [id number] Information: NURSE DRAW WBC (Bld) [#/Vol] 4.7 10*3/uL Normal 3.4-10.8 Compre [facility]; [facility] Work Phone: Comment on above: PATIENT WAS FASTINGP ERFORMED BY: CB [facility] Wvzton8514 [address]Dublin [place] [id number] Information: NURSE DRAW METABOLIC PANEL, JOSE ENRIQUE LUND ([id number])Ordered By: Dean on 04-13-2021 Albumin [Mass/Vol] 4.3 g/dL Normal 3.8-4.8 [facility]; [facility] Work Phone: Comment on above: PATIENT WAS FASTINGP ERFORMED BY: CB [facility] Dspldb8241 [address] RoadDublin [place] [id number] Albumin/Globulin [Mass ratio] 1.9 {ratio} Normal 1.2-2.2 [facility]; [facility] Work Phone: Comment on above: PATIENT WAS FASTINGP ERFORMED BY: CB [facility] Lqsaej5800 [address] RoadDublin [place] [id number] ALP [Catalytic activity/Vol] 71 U/L Normal 48-121 [facility]; [facility] Work Phone: Comment on above: PATIENT WAS FASTINGP ERFORMED BY: CB [facility] Apozpg4[address]Dublin [place] [id number] ALT [Catalytic activity/Vol] 21 U/L Normal 0-44 [facility]; [facility] Work Phone: Comment on above: PATIENT WAS FASTINGP ERFORMED BY: CB [facility] Aufhfd2258 [address] RoadDublin [place] [id number] AST [Catalytic activity/Vol] 22 U/L Normal 0-40 [facility]; Comprehensive Internal Medicine Work Phone: Comment on above: PATIENT WAS FASTINGP ERFORMED BY: CB [facility] [id number] [address] RoadDublin [place] [id number] Bilirubin [Mass/Vol] 0.3 mg/dL Normal 0.0-1.2 [facility]; [facility] Work Phone: Comment on above: PATIENT WAS FASTINGP ERFORMED BY: CB [facility] [id number] [address]Dublin [place] [id number] Calcium [Mass/Vol] 9.1 mg/dL Normal 8.6-10.2 [facility]; [facility] Work Phone: Comment on above: PATIENT WAS FASTINGP ERFORMED [facility]: [facility] [id number] [facility] [id number] Chloride [Moles/Vol] 105 mmol/L Normal 96-106 [facility]; [facility] Work Phone: Comment on above: PATIENT WAS FASTINGP ERFORMED BY: [facility] [facility] [id number] CO2 [Moles/Vol] 22 mmol/L Normal 20-29 [facility]; [facility] Work Phone: Comment on above: PATIENT WAS FASTINGP ERFORMED BY: [facility] [id number] Creatinine [Mass/Vol] 1.12 mg/dL Normal 0.76-1.27 [facility]; [facility] Work Phone: Comment on above: PATIENT WAS FASTINGP ERFORMED BY: [facility] [id number] GFR/1.73 sq M.predicted among blacks CKD-EPI (S/P/Bld) [Vol rate/Area] 82 mL/min/1.73 Normal [facility]; [facility] Work Phone: Comment on above: [facility] e[facility] in compliance with the current recommendations of the [employer]. [facility] will update reporting as new guidelines are published from the NKF-ASN Task force. PATIENT WAS FASTINGP ERFORMED BY: [facility] [id number] GFR/1.73 sq M.predicted among non-blacks CKD-EPI (S/P/Bld) [Vol rate/Area] 71 mL/min/1.73 Normal [facility]; [facility] Work Phone: Comment on above: PATIENT WAS FASTINGP ERFORMED BY: [facility] [id number] Globulin (S) [Mass/Vol] 2.3 g/dL Normal 1.5-4.5 [facility]; [facility] Work Phone: Comment on above: PATIENT WAS FASTINGP ERFORMED BY: STACY [facility] [id number] [facility] [place] [id number] Glucose [Mass/Vol] 97 mg/dL Normal 65-99 [facility]; [facility] Work Phone: Comment on above: PATIENT WAS FASTINGP ERFORMED BY: STACY [facility] [id number] [facility] [id number] Potassium [Moles/Vol] 4.4 mmol/L Normal 3.5-5.2 [facility]; [facility] Work Phone: Comment on above: PATIENT WAS FASTINGP ERFORMED BY: STACY [facility] [id number] [facility] [id number] Protein [Mass/Vol] 6.6 g/dL Normal 6.0-8.5 [facility]; [facility] Work Phone: Comment on above: PATIENT WAS FASTINGP ERFORMED BY: STACY [facility] [id number] [address] [facility] [place] [id number] Sodium [Moles/Vol] 141 mmol/L Normal 134-144 [facility]; [facility] Work Phone: Comment on above: PATIENT WAS FASTINGP ERFORMED BY: [facility] [id number] [facility] [id number] Urea nitrogen [Mass/Vol] 25 mg/dL Normal 8-27 [facility]; [facility] Work Phone: Comment on above: PATIENT WAS FASTINGP ERFORMED BY: [facility] [id number] [address]Dublin [place] [id number] Urea nitrogen/Creatini ne [Mass ratio] 22 mg/mg Normal 10-24 [facility]; [facility] Work Phone: Comment on above: PATIENT WAS FASTINGP ERFORMED BY: [facility] [id number] [facility] [place] [id number] Vital Signs Date Time Vital Sign Value Performing Clinician Facility 06-13-2023 07:10-0400 Body height 173.99 cm EITAN Cali GREGORIO [facility]; [facility] Work Phone: 06-13-2023 07:10-0400 Body mass index (BMI) [Ratio] 20.38 kg/m2 EITAN Cali GREGORIO [facility]; [facility] Work Phone: 06-13-2023 07:10-0400 Body surface area Derived from formula 1.74 m2 EITAN Cali GREGORIO [facility]; [facility] Work Phone: 06-13-2023 07:10-0400 Body temperature 97.6 [degF] EITAN Cali GREGORIO [facility]; [facility] Work Phone: Comment on above: Method: Temporal 06-13-2023 07:10-0400 Body weight 61.69 kg EITAN Viraj PERKINS [facility]; [facility] Work Phone: 06-13-2023 07:10-0400 Diastolic blood pressure 68 mm[Hg] EITAN Cali GREGORIO [facility]; [facility] Work Phone: Comment on above: Patient Position: Sitting; Cuff Location : Left Arm; Cuff Size: Standard 06-13-2023 07:10-0400 Heart rate 88 /min EITAN Cali GREGORIO [facility]; [facility] Work Phone: Comment on above: Pattern: Regular 06-13-2023 07:10-0400 Respiratory rate 18 /min EITAN Cali GREGORIO [facility]; [facility] Work Phone: Comment on above: Pattern: Unlabored 06-13-2023 07:10-0400 SaO2% (BldA) [Mass fraction] 95 % EITAN Cali GREGORIO [facility]; [facility] Work Phone: Comment on above: Room air 06-13-2023 07:10-0400 Systolic blood pressure 114 mm[Hg] EITANDIXON Cali LPN [facility]; [facility] Work Phone: Comment on above: Patient Position: Sitting; Cuff Location : Left Arm; Cuff Size: Standard 02-21-2023 07:28-0400 Body height 173.99 cm Tr[facility]; [facility] Work Phone: 02-21-2023 07:28-0400 Body mass index (BMI) [Ratio] 19.7 kg/m2 [facility]; [facility] Work Phone: 02-21-2023 07:28040 Body surface area Derived from formula 1.72 m2 [facility]; [facility] Work Phone: 02-21-2023 07:28040 Body temperature 97.7 [degF] Triny [facility]; [facility] Work Phone: Comment on above: Method: Thermal Scan 02-21-2023 07:28-0400 Body weight 59.65 kg Triny [facility]; [facility] Work Phone: 02-21-2023 07:28-0400 Diastolic blood pressure 70 mm[Hg] [facility]; [facility] Work Phone: Comment on above: Patient Position: Sitting; Cuff Location : Left Arm; Cuff Size: Standard 02-21-2023 07:28-0400 Heart rate 74 /min [facility]; [facility] Work Phone: Comment on above: Pattern: Regular 02-21-2023 07:28-0400 Respiratory rate 16 /min Trinychelsey [facility]; [facility] Work Phone: Comment on above: Pattern: Unlabored 02-21-2023 07:28-0400 SaO2% (BldA) [Mass fraction] 97 % Trinychelsey [facility]; [facility] Work Phone: Comment on above: Room air 02-21-2023 07:28-0400 Systolic blood pressure 118 mm[Hg] [facility]; [facility] Work Phone: Comment on above: Patient Position: Sitting; Cuff Location : Left Arm; Cuff Size: Standard 09-13-2022 07:09-0500 Body height 173.99 cm Laura Andrade MA [facility]; [facility] Work Phone: 09-13-2022 07:09-0500 Body mass index (BMI) [Ratio] 19.7 kg/m2 Laura Andrade MA [facility]; [facility] Work Phone: 09-13-2022 07:09-0500 Body surface area Derived from formula 1.72 m2 Laura Andrade MA [facility]; [facility] Work Phone: 09-13-2022 07:09-0500 Body temperature 98.5 [degF] Laura Andrade MA [facility]; [facility] Work Phone: 09-13-2022 07:09-0500 Body weight 59.65 kg Laura Andrade MA [facility]; [facility] Work Phone: 09-13-2022 07:09-0500 Diastolic blood pressure 80 mm[Hg] Laura Andrade MA [facility]; [facility] Work Phone: Comment on above: Patient Position: Sitting; Cuff Location : Left Arm; Cuff Size: Standard 09-13-2022 07:09-0500 Heart rate 73 /min Laura Andrade MA [facility]; [facility] Work Phone: Comment on above: Pattern: Regular 09-13-2022 07:09-0500 Respiratory rate 17 /min Laura Andrade MA [facility]; [facility] Work Phone: Comment on above: Pattern: Unlabored 09-13-2022 07:09-0500 SaO2% (BldA) [Mass fraction] 97 % Laura Andrade MA [facility]; [facility] Work Phone: Comment on above: Room air 09-13-2022 07:09-0500 Systolic blood pressure 122 mm[Hg] Laura Andrade MA [facility]; [facility] Work Phone: Comment on above: Patient Position: Sitting; Cuff Location : Left Arm; Cuff Size: Standard 08-12-2022 12:55-0500 Body height 170.2 cm Ezekiel Taylor MD Work Phone: [facility] 08-12-2022 12:55-0500 Body temperature 98.71 [degF] Ezekiel Taylor MD Work Phone: [facility] 08-12-2022 12:55-0500 Body weight 63.5 kg Ezekiel Taylor MD Work Phone: [facility] 08-12-2022 12:55-0500 Diastolic blood pressure 60 mm[Hg] Ezekiel Taylor MD Work Phone: [facility] 08-12-2022 12:55-0500 Heart rate 94 /min Ezekiel Taylor MD Work Phone: [facility] 08-12-2022 12:55-0500 SaO2% (BldA) [Mass fraction] 97 % Ezekiel Taylor MD Work Phone: [facility] 08-12-2022 12:55-0500 Systolic blood pressure 112 mm[Hg] Ezekiel Taylor MD Work Phone: [facility] 07-12-2022 08:09-0400 Body height 175.3 cm Ezekiel Taylor MD Work Phone: [facility] 07-12-2022 08:09-0400 Body temperature 98.4 [degF] Ezekiel Taylor MD Work Phone: [facility] 07-12-2022 08:09-0400 Body weight 62.6 kg Ezekiel Taylor MD Work Phone: [facility] 07-12-2022 08:09-0400 Diastolic blood pressure 72 mm[Hg] Ezekiel Taylor MD Work Phone: [facility] 07-12-2022 08:09-0400 Heart rate 88 /min Ezekiel Taylor MD Work Phone: [facility] 07-12-2022 08:09-0400 SaO2% (BldA) [Mass fraction] 99 % Ezekiel Taylor MD Work Phone: [facility] 07-12-2022 08:09-0400 Systolic blood pressure 112 mm[Hg] Ezekiel Taylor MD Work Phone: [facility] 05-28-2022 09:20-0400 Body height 173.99 cm [facility]; [facility] Work Phone: 05-28-2022 09:20-0400 Body mass index (BMI) [Ratio] 19.7 kg/m2 [facility]; [facility] Work Phone: 05-28-2022 09:20-0400 Body surface area Derived from formula 1.72 m2 [facility]; [facility] Work Phone: 05-28-2022 09:20-0400 Body temperature 98.3 [degF] [facility]; [facility] Work Phone: Comment on above: Method: Thermal Scan 05-28-2022 09:20-0400 Body weight 59.65 kg [facility]; [facility] Work Phone: 05-28-2022 09:20-0400 Diastolic blood pressure 64 mm[Hg] [facility]iny [facility]; [facility] Work Phone: Comment on above: Patient Position: Sitting; Cuff Location : Left Arm; Cuff Size: Standard 05-28-2022 09:20-0400 Heart rate 65 /min [facility]; [facility] Work Phone: Comment on above: Pattern: Regular 05-28-2022 09:20-0400 Respiratory rate 16 /min Trinychelsey House [facility]; [facility] Work Phone: Comment on above: Pattern: Unlabored 05-28-2022 09:20-0400 Systolic blood pressure 118 mm[Hg] Tr[facility]; [facility] Work Phone: Comment on above: Patient Position: Sitting; Cuff Location : Left Arm; Cuff Size: Standard 05-01-2022 13:47-0400 Body height 173.99 cm Tr[facility]; [facility] Work Phone: 05-01-2022 13:47-0400 Body mass index (BMI) [Ratio] 19.7 kg/m2 [facility]; [facility] Work Phone: 05-01-2022 13:47-0400 Body surface area Derived from formula 1.72 m2 [facility]; [facility] Work Phone: 05-01-2022 13:47-0400 Body temperature 96.8 [degF] Triny [facility]; [facility] Work Phone: Comment on above: Method: Thermal Scan 05-01-2022 13:47-0400 Body weight 59.65 kg Triny House [facility]; [facility] Work Phone: 05-01-2022 13:47-0400 Diastolic blood pressure 60 mm[Hg] Trniy House [facility]; [facility] Work Phone: Comment on above: Patient Position: Sitting; Cuff Location : Left Arm; Cuff Size: Standard 05-01-2022 13:47-0400 Heart rate 84 /min Triny House [facility]; [facility] Work Phone: Comment on above: Pattern: Regular 05-01-2022 13:47-0400 Respiratory rate 16 /min [facility]; [facility] Work Phone: Comment on above: Pattern: Unlabored 05-01-2022 13:47-0400 Systolic blood pressure 114 mm[Hg] Triny [facility]; [facility] Work Phone: Comment on above: Patient Position: Sitting; Cuff Location : Left Arm; Cuff Size: Standard 04-24-2022 15:05-0400 Body temperature 98.9 [degF] Dr. Lashonda Anguiano Work Phone: [facility] Work Phone: 04-24-2022 15:05-0400 Diastolic blood pressure 82 mm[Hg] Dr. Lashonda Anguiano Work Phone: [facility] Work Phone: 04-24-2022 15:05-0400 Heart rate 87 /min Dr. Lashonda Anguiano Work Phone: [facility] Work Phone: 04-24-2022 15:05-0400 Respiratory rate 17 /min Dr. Lashonda Anguiano Work Phone: [facility] Work Phone: 04-24-2022 15:05-0400 SaO2% (BldA) [Mass fraction] 97 % Dr. Lashonda Anguiano Work Phone: [facility] Work Phone: 04-24-2022 15:05-0400 Systolic blood pressure 123 mm[Hg] Dr. Lashonda Anguiano Work Phone: [facility] Work Phone: 04-19-2022 06:00-0400 Body weight [address] Lashonda Anguiano Work Phone: [facility] Work Phone: 04-18-2022 13:35-0400 Body height 177.[address] Lashonda Anguiano Work Phone: [facility] Work Phone: 04-10-2022 14:37-0400 Body mass index (BMI) [Ratio] 19.4 kg/m2 Dr. Lashonda Anguiano Work Phone: [facility] Work Phone: 04-10-2022 13:39-0400 Diastolic blood pressure 51 mm[Hg] Dr. Lashonda Fast Work Phone: [facility] Work Phone: 04-10-2022 13:39-0400 Heart rate 104 /min Dr. Lashonda Anguiano Work Phone: [facility] Work Phone: 04-10-2022 13:39-0400 Systolic blood pressure 108 mm[Hg] Dr. Lashonda Anguiano Work Phone: [facility] Work Phone: 04-10-2022 10:18-0400 SaO2% (BldA) [Mass fraction] 92 % Dr. Lashonda Anguiano Work Phone: [facility] Work Phone: 04-10-2022 08:36-0400 Body temperature 98.3 [degF] Dr. Lashonda Anguiano Work Phone: [facility] Work Phone: 04-10-2022 08:36-0400 Respiratory rate 16 /min Dr. Lashonda Anguiano Work Phone: [facility] Work Phone: 04-09-2022 15:08-0400 Inhaled oxygen flow rate 2 L/min Dr. Lashonda Anguiano Work Phone: [facility] Work Phone: 04-09-2022 09:40-0400 Body height 177.[address] Lashonda Anguiano Work Phone: [facility] Work Phone: 04-09-2022 09:40-0400 Body weight 62.[address] Lashonda Anguiano Work Phone: [facility] Work Phone: 04-07-2022 08:00-0400 Body mass index (BMI) [Ratio] 19.8 kg/m2 Dr. Lashonda Anguiano Work Phone: [facility] Work Phone: 04-06-2022 20:41-0400 Body temperature 98.7 [degF] [facility] Work Phone: 04-06-2022 20:41-0400 Diastolic blood pressure 70 mm[Hg] [facility] Work Phone: 04-06-2022 20:41-0400 Heart rate 74 /min [facility] Work Phone: 04-06-2022 20:41-0400 Respiratory rate 16 /min [facility] Work Phone: 04-06-2022 20:41-0400 SaO2% (BldA) [Mass fraction] 97 % [facility] Work Phone: 04-06-2022 20:41-0400 Systolic blood pressure 137 mm[Hg] [facility] Work Phone: 04-06-2022 18:34-0400 Body height 177.8 cm [facility] Work Phone: 04-06-2022 18:34-0400 Body mass index (BMI) [Ratio] 20 kg/m2 [facility] Work Phone: 04-06-2022 18:34-0400 Body weight 63.5 kg [facility] Work Phone: 09-18-2021 08:24-0500 Body height 173.99 cm Ne Ya LADDER OPERATOR [facility]; [facility] Work Phone: 09-18-2021 08:24-0500 Body mass index (BMI) [Ratio] 20.23 kg/m2 Ne Slarb LADDER OPERATOR [facility]; [facility] Work Phone: 09-18-2021 08:24-0500 Body surface area Derived from formula 1.74 m2 Ne Slarb LADDER OPERATOR [facility]; [facility] Work Phone: 09-18-2021 08:24-0500 Body temperature 97.5 [degF] Ne Slarb LADDER OPERATOR [facility]; [facility] Work Phone: 09-18-2021 08:24-0500 Body weight 61.24 kg Ne Pandya LADDER OPERATOR [facility]; [facility] Work Phone: 09-18-2021 08:24-0500 Diastolic blood pressure 76 mm[Hg] Ne Ruizrb LADDER OPERATOR [facility]; [facility] Work Phone: Comment on above: Patient Position: Sitting; Cuff Location : Left Arm; Cuff Size: Standard 09-18-2021 08:24-0500 Heart rate 75 /min Ne Ruizrb LADDER OPERATOR [facility]; [facility] Work Phone: Comment on above: Pattern: Regular 09-18-2021 08:24-0500 Respiratory rate 16 /min Ne Sararb LADDER OPERATOR [facility]; [facility] Work Phone: Comment on above: Pattern: Unlabored 09-18-2021 08:24-0500 SaO2% (BldA) [Mass fraction] 99 % Ne Ruizrb LADDER OPERATOR [facility]; [facility] Work Phone: Comment on above: Room air 09-18-2021 08:24-0500 Systolic blood pressure 124 mm[Hg] Ne Ruizrb LADDER OPERATOR [facility]; [facility] Work Phone: Comment on above: Patient Position: Sitting; Cuff Location : Left Arm; Cuff Size: Standard 08-20-2021 10:00-0500 Body height 173.99 cm Lashonda A Fast DO Work Phone: [facility]; [facility] Work Phone: 08-20-2021 10:00-0500 Body mass index (BMI) [Ratio] 20.23 kg/m2 Lashonda A Fast DO Work Phone: [facility];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 Yearly Adult Physical Yearly Adult P hysical [facility] End: 04-03-2024 CT for calcium scoring WO contrast and CTA W contrast IV Heart and coronary arteries [facility] Service Area Work Phone: Comment on above: Once for 1 Occurrenc es starting 04/03/2024 until 04/03/2024 Patient Education Caring for You r Incision [facility] Work Phone: Patient referral [facility] Work Phone: SURGICAL PATHOLOGY SURGICAL PATH OLOGY Lab Routine Multinodular goiter Ordered: 07/22/2022 [facility] Work Phone: Comment on above: Ordered: 07/22/2022 [facility] Work Phone: [facility] Work Phone: [facility] Work Phone: [facility] Work Phone: [facility] Work Phone: [facility] Work Phone: [facility] Work Phone: [facility] Work Phone: [facility] Work Phone: [facility] Work Phone: [facility] Work Phone: Immunizations Immunization Date Immunization Notes Care Provider [facility] 09-18-2021 COVID-Pfizer (30 MCG/0.3 ML) Lashonda Fast DO Work Phone: [facility] Work Phone: 07-28-2021 influenza, seasonal, injectable Dr. Lashonda Anguiano Work Phone: [facility] 07-28-2021 influenza virus vaccine, unspecified formulation [address] Work Phone: 02-17-2021 Covid (Pfizer) Dr. Lashonda rivas Work Phone: [facility] 01-20-2021 Covid (Pfizer) Dr. Lashonda rivas Work Phone: [facility] 12-28-2020 COVID-Pfizer (30 MCG/0.3 ML) Lashonda Fast DO Work Phone: [facility] Work Phone: 11-27-2020 COVID-Pfizer (30 MCG/0.3 ML) Lashonda Fast DO Work Phone: [facility] Work Phone: Payers Date Payer Category Payer Medicare [id number] 2024 Self-pay [id number] 2023 Unknown 2023 Unknown [id number] 2022 Unknown [id number] 2021 Unknown [id number] 1959 Unknown [id number] [id number] 1959 Unknown [id number] [id number] [id number] Unknown [id number] Unknown [facility] P[facility]AN [id number] Unknown [id number] 2.16.8 [id number] Unknown [id number] [id number] [id number] Unknown [id number] [id number] [id number] Unknown [id number] 2.16.8 [id number] Unknown [id number] [id number] [id number] Social History Date Type Detail Facility Alcohol Use: Alcohol Use: [facility] Work Phone: Comment on above: o No Caffeine Use No Caffeine Use [facility] Work Phone: Tobacco use: Tobacco use: [facility] Work Phone: Comment on above: never smoker Start: 04-06-2022 End: 07-03-2022 Tobacco smoking status NHIS Unknown if ever smoked [facility] Start: 1960 Sex Assigned At Male W [facility] Start: 07-12-2022 Tobacco smoking status NHIS Never smoked tobacco [facility] Start: 07-12-2022 Tobacco use and exposure Smokeless tobacco non-user [facility] Start: 07-12-2022 End: 08-12-2022 Alcohol intake Ex-drinker (finding) [facility] Start: 07-12-2022 Alcohol Comment seldom [facility] Start: 1960 Sex Assigned At Not on file [facility] Start: 07-02-2022 End: 04-03-2024 Exposure to SARS-CoV-2 (event) Not sure [facility] Gender identity Not on file [facility] ospitals [facility] Work Phone: Medical Equipment Procedure Code Equipment Code Equipment Origin al Text Equipment Identifier Dates ([id number]) Orthopaedic fixa tion plate, non-bioabsorbable, sterile ()[id number] FDA Start: 04-07-2022 ([id number]) Orthopaedic bone screw, non-bioabsorbable, non-sterile ()[id number] FDA Start: 04-07-2022 ([id number]) Orthopaedic bone screw, non-bioabsorbable, sterile ()[id number] FDA Start: 04-07-2022 ([id number]) Femur nail, sterile ()[id number] FDA Start: 04-07-2022 ([id number]) Spiral blade ()[id number] FDA Start: 04-07-2022 ([id number]) Orthopaedic bone screw, non-bioabsorbable, non-sterile ()[id number] FDA Start: 04-07-2022 ([id number]) Orthopaedic bone screw, non-bioabsorbable, non-sterile ()[id number] FDA Start: 04-07-2022 ([id number]) Orthopaedic bone screw, non-bioabsorbable, non-sterile ()[id number] FDA Start: 04-07-2022 Goals Date Patient Goal Desired Activity /State Functional Status Date Assessment Result Facility 04-24-2022 Functional status Activity Ability Indepe ndent [facility] Work Phone: 2022 Functional status Ambulates;Bathroom Priv ilege [facility] Work Phone: 04-16-2022 Functional status Tolerates Activity Well [facility] Work Phone: 04-10-2022 Functional status Ambulates [facility] Work Phone: Mental Status Date Assessment Result Facility 04-24-2022 Cognitive function Voice/Name [facility] Work Phone: 2022 Cognitive function Appropriate;C ooperative;Ta lkative [facility] Work Phone: 04-09-2022 Cognitive function Voice/Name [facility] Work Phone: Clinical Notes 07-12-2022 to 08-12-2022 Ezekiel Taylor MD - 08/12/2022 1:13 PM ESTTelephone Encounter - Herminia Avalos LPN - 08/02/2022 2:23 PM EDTTelephone Encounter - Herminia Avalos LPN - 07/31/2022 10:26 AM EDTPatient Instructions Note Date & Type Note Facility 08-12-2022 Note HNO ID: [id number] Author: Ezekiel Taylor MD Service: ? Author Type: Physician Type: Progress Notes Filed: 08/12/2022 1:16 PM Note Text: Subjective: Patient is status post an ultrasound-guided fine-needle aspiration of the left thyroid nodule. This came back consistent with a benign/colloid nodule. Was adequate for evaluation and was negative for malignant cells. Objective:Blood pressure 112/60, pulse 94, temperature 37.1 ?C (98.7 ?F), height 170.2 cm (5' 7), weight 63.5 kg (140 lb), SpO2 97 %. Neck is supple no hard palpable nodules are identified. Assessment:Multinodular goiter (primary encounter diagnosis) Plan: Patient should get yearly thyroid ultrasounds. Repeat fine-needle aspirations will need to be performed if the nodule grows by more than 20%. [facility] 08-12-2022 History of Presen t illness Narrative Subjective: Patient is status post an ultrasound-guided fine-needle aspiration of the left thyroid nodule. This came back consistent with a benign/colloid nodule. Was adequate for evaluation and was negative for malignant cells. Objective:Blood pressure 112/60, pulse 94, temperature 37.1 C (98.7 F), height 170.2 cm (5' 7), weight 63.5 kg (140 lb), SpO2 97 %. Neck is supple no hard palpable nodules are identified. Assessment:Multinodular goiter (primary encounter diagnosis) Plan: Patient should get yearly thyroid ultrasounds. Repeat fine-needle aspirations will need to be performed if the nodule grows by more than 20%. documented in this encounter [facility] 08-02-2022 Miscellaneous Notes Formattin g of this note might be different from the original. Patient state was called by financial dept, needs to make a payment before can be scheduled for office visit for test results. Patient states will make a payment next week and will schedule appointment afterward. Patient states does not have Capriza access either. Herminia Avalos LPN Spoke to Patient Clothing Supervisor, stated they would reach out and call patient. Herminia Avalos LPN Patient needs a f/u appt for FNA left Thyroid with Dr. Taylor. Our PSS Georgette indicated that he needs to talk to Patient Financial Services before f/u can be scheduled. Please contact the patient as they need a f/u to go over results. Thanks!Mirela Kent RN documented in this encounter [facility] 07-29-2022 Miscellaneous Notes Formattin g of this note might be different from the original. Called patient. Said he needs to call finical services first before scheduling a F/U with Brandon. Georgette Deep documented in this encounter [facility] 07-22-2022 Note HNO ID: [id number] Author: Ezekiel Taylor MD Service: ? Author Type: Physician Type: Progress Notes Filed: 07/22/2022 3:48 PM Note Text: Preoperative diagnosis: Multinodular goiter Postoperative diagnosis: The same Procedure: Ultrasound-guided fine-needle aspiration of dominant left thyroid nodule Surgeon: Brandon Procedure: Ultrasound of the left thyroid revealed the nodule in question. Prepped the skin with alcohol. I injected 1% lidocaine plain. Under ultrasound guidance I took 3 passes with a 22-gauge needle. I plated these on glass slides. Sterile dressings were applied. The patient tolerated the procedure well. [facility] 07-22-2022 Note HNO ID: [id number] Author: Mirela Kent RN Service: ? Author Type: Registered Nurse Type: Progress Notes Filed: 07/22/2022 3:29 PM Note Text: UNIVERSAL PROTOCOL / SAFETY CHECKLIST Procedure to be Performed: Ultrasound Guided Fine Needle Aspiration Thyroid left Sign In: A Moment of CARE was completed. Personnel directly involved with the procedure wore the appropriate PPE (Personal Protective Equipment). No special equipment needed. Patient/Surrogate Stated/Verified: PATIENT VERIFIED(optional for EMERGENT procedures): Patient name, Date of , Relevant allergies, and The intended procedure Time Out Communication: Intended patient and procedure match the source documents. Consent documented and matches the intended procedure. Relevant labs, photos, and/or imaging studies have been reviewed. Correct side/site marked and visible. Medications required for procedure verified. No fire risk assessment and interventions applicable. No implant(s) inserted. Sign Out: SIGN OUT (optional for EMERGENT procedures): All specimen containers correctly labeled. All instruments, equipment, possible retained foreign bodies accounted for. Post-procedure follow-up management communicated and Plan of Care Visit completed when applicable. Mirela Kent RN [facility] 07-22-2022 Instructions Mirela Ketn RN - 07/22/2022 3:32 PM EDT The following instructions are important for you related to your office visit today with the [facility] General Surgeons. Instructions After THYROID FINE NEEDLE ASPIRATION Please do not take aspirin or other blood thinners for the next few days. If you have bleeding from the needle site, hold pressure with a clean gauze. If the bleeding continues, contact our office immediately. I recommend taking Advil or Tylenol for the discomfort. An ice pack may improve your discomfort to the area. Contact our office immediately if you have any questions or concerns @ [phone]. Please make an appointment to follow up in one week with your physician and thank you for choosing the [facility]. If you note any additional difficulties, questions, or concerns, you should contact our office immediately @ [phone] and ask to be transferred to the General Surgery department. documented in this encounter [facility] 07-22-2022 History of Presen t illness Narrative Preoperative diagnosis: Multinodular goiter Postoperative diagnosis: The same Procedure: Ultrasound-guided fine-needle aspiration of dominant left thyroid nodule Surgeon: Brandon Procedure: Ultrasound of the left thyroid revealed the nodule in question. Prepped the skin with alcohol. I injected 1% lidocaine plain. Under ultrasound guidance I took 3 passes with a 22-gauge needle. I plated these on glass slides. Sterile dressings were applied. The patient tolerated the procedure well. UNIVERSAL PROTOCOL / SAFETY CHECKLIST Procedure to be Performed: Ultrasound Guided Fine Needle Aspiration Thyroid left Sign In: A Moment of CARE was completed. Personnel directly involved with the procedure wore the appropriate PPE (Personal Protective Equipment). No special equipment needed. Patient/Surrogate Stated/Verified: PATIENT VERIFIED(optional for EMERGENT procedures): Patient name, Date of , Relevant allergies, and The intended procedure Time Out Communication: Intended patient and procedure match the source documents. Consent documented and matches the intended procedure. Relevant labs, photos, and/or imaging studies have been reviewed. Correct side/site marked and visible. Medications required for procedure verified. No fire risk assessment and interventions applicable. No implant(s) inserted. Sign Out: SIGN OUT (optional for EMERGENT procedures): All specimen containers correctly labeled. All instruments, equipment, possible retained foreign bodies accounted for. Post-procedure follow-up management communicated and Plan of Care Visit completed when applicable. Mirela Kent RN documented in this encounter [facility] 07-12-2022 Note HNO ID: [id number] Author: Ezekiel Taylor MD Service: ? Author Type: Physician Type: Progress Notes Filed: 07/12/2022 8:46 AM Note Text: HISTORY AND PHYSICAL Migue Purdy 1960 REFERRING PHYSICIAN: Lashonda Anguiano DO CHIEF COMPLAINT: Consult (Thyroid biopsy) HPI: The patient is a 62 year old male with a complaint of a left thyroid nodule. This thyroid nodule was found on Ultrasound by [facility]. Patient has a 1.7 cm nodule in the left lobe of the thyroid gland. He also has several small subcentimeter nodules in both the left and right thyroid. the patient denies pain, denies difficulty swallowing, deniesrapid enlargement of the neck, deniesdysphagia, denies a change in the voice, denies hot or cold intolerence. The patient has not a prior history of neck radiation treatment. The patient is being seen by me today at the request of No primary care provider on file. for my opinion and advice regarding Multinodular goiter (primary encounter diagnosis). PAST MEDICAL HISTORY Diagnosis Date Disorder of thyroid Kidney stones Skin cancer PAST SURGICAL HISTORY Procedure Laterality Date PAST SURGICAL HISTORY OF repair a broken clavical PAST SURGICAL HISTORY OF Right repair a broke femur PAST SURGICAL HISTORY OF bladder stone removed Current Outpatient Medications Medication Sig Dispense Refill doxazosin (CARDURA) 2 mg tablet Take 2 mg by mouth once daily. ferrous sulfate 325 mg (65 mg iron) tablet Take 1 tablet by mouth every other day. No current facility-administered medications for this visit. ALLERGIES: [employer] [Other] PERSONAL HISTORY: Social History Tobacco Use Smoking status: Never Smokeless tobacco: Never Vaping Use Vaping Use: Never used Substance Use Topics Alcohol use: Not Currently Comment: seldom Drug use: Never FAMILY HISTORY: FAMILY HISTORY Problem Relation Age of Onset No Known Problems Mother Asthma Father Lung Cancer Father REVIEW OF SYMPTOMS: The review of systems data was entered by the nurse and reviewed by hi Nursing Notes: Herminia Avalos LPN 07/12/2022 8:11 AM Signed REVIEW OF SYSTEMS: General: The patient denies fatigue, denies weight loss, denies weight gain, denies feeling hot, and denies feelings of cold. Eyes: The patient denies glaucoma, denies eye injury/surgery, does not wear glasses or contacts. Ear/Nose/Throat: The patient denies allergies, denies hayfever, denies ear infections, and denies bloody noses. Cardiovascular: The patient denies chest pain, denies heart disease, denies high blood pressure,denies cardiac stent, denies prior heart attack, denies irregular heart beat, denies high cholesterol, denies poor circulation, denies heart failure, other cardiac issues, denies claudication, denies cold feet, denies peripheral arterial stent. Respiratory: The patient denies tuberculosis, denies pneumonia, denies frequent cough, denies pulmonary embolism, denies shortness of breath, and denies coughing up blood. Gastrointestinal: The patient denies difficulty swallowing, denies acid reflux, denies ulcers, denies vomiting, denies jaundice/hepatitis, denies gallbladder problems, denies black or tarry stools, denies hemorrhoids, denies bleeding from rectum, denies diverticulitis, denies constipation, denies diarrhea, denies loss of stool control, and denies hernias. Kidney/Bladder: The patient notes kidney stones, denies urine infections, and denies bloody urine. Skin: The patient notes a history of skin cancer, denies bleeding/changing moles, and denies a history of skin rash. Neurologic: The patient denies a history of epilepsy/convulsions, denies headaches, denies head/spinal injuries, and denies stroke/TIA. Psychiatric: The patient denies psychiatric medications, denies depression, and denies voices, denies substance abuse. Endocrine: The patient denies thyroid disorders, denies diabetes, and denies hormonal problems. Hematologic: The patient denies a history of bruising, denies bleeding, and denies anemia, denies blood clots. Infections: The patient notes a history of measles and mumps, denies rheumatic fever, and denies sexually transmitted diseases. Musculoskeletal: The patient denies back pain/injury, denies back problems, denies sciatica, denies knee/foot trouble, denies arthritis, or denies gout. When was patient's last Mammogram screening? N/A Last Colonoscopy: 2018 Herminia Avalos LPN PHYSICAL EXAMINATION: General: The patient is 62 year old male, well nourished, well hydrated in no acute distress. The patient is oriented to time, place, and person. VITALS: Blood pressure 112/72, pulse 88, temperature 36.9 ?C (98.4 ?F), height 175.3 cm (5' 9), weight 62.6 kg (138 lb), SpO2 99 %. Body mass index is 20.38 kg/m?. HEENT: Normal cephalic, ataumatic, pupils are equally round, sclera are anicteric, mucous membranes are moist, orophar (more content not included)... [facility] 07-12-2022 History of Presen t illness Narrative HISTORY AND PHYSICAL Migue Purdy 1960 REFERRING PHYSICIAN: Lashonda Anguiano DO CHIEF COMPLAINT: Consult (Thyroid biopsy) HPI: The patient is a 62 year old male with a complaint of a left thyroid nodule. This thyroid nodule was found on Ultrasound by [facility]. Patient has a 1.7 cm nodule in the left lobe of the thyroid gland. He also has several small subcentimeter nodules in both the left and right thyroid. the patient denies pain, denies difficulty swallowing, deniesrapid enlargement of the neck, deniesdysphagia, denies a change in the voice, denies hot or cold intolerence. The patient has not a prior history of neck radiation treatment. The patient is being seen by me today at the request of No primary care provider on file. for my opinion and advice regarding Multinodular goiter (primary encounter diagnosis). PAST MEDICAL HISTORY Diagnosis Date Disorder of thyroid Kidney stones Skin cancer PAST SURGICAL HISTORY Procedure Laterality Date PAST SURGICAL HISTORY OF repair a broken clavical PAST SURGICAL HISTORY OF Right repair a broke femur PAST SURGICAL HISTORY OF bladder stone removed Current Outpatient Medications Medication Sig Dispense Refill doxazosin (CARDURA) 2 mg tablet Take 2 mg by mouth once daily. ferrous sulfate 325 mg (65 mg iron) tablet Take 1 tablet by mouth every other day. No current facility-administered medications for this visit. ALLERGIES: Bees [employer] [Other] PERSONAL HISTORY: Social History Tobacco Use Smoking status: Never Smokeless tobacco: Never Vaping Use Vaping Use: Never used Substance Use Topics Alcohol use: Not Currently Comment: seldom Drug use: Never FAMILY HISTORY: FAMILY HISTORY Problem Relation Age of Onset No Known Problems Mother Asthma Father Lung Cancer Father REVIEW OF SYMPTOMS: The review of systems data was entered by the nurse and reviewed by me Nursing Notes: Herminia Avalos LPN 07/12/2022 8:11 AM Signed REVIEW OF SYSTEMS: General: The patient denies fatigue, denies weight loss, denies weight gain, denies feeling hot, and denies feelings of cold. Eyes: The patient denies glaucoma, denies eye injury/surgery, does not wear glasses or contacts. Ear/Nose/Throat: The patient denies allergies, denies hayfever, denies ear infections, and denies bloody noses. Cardiovascular: The patient denies chest pain, denies heart disease, denies high blood pressure,denies cardiac stent, denies prior heart attack, denies irregular heart beat, denies high cholesterol, denies poor circulation, denies heart failure, other cardiac issues, denies claudication, denies cold feet, denies peripheral arterial stent. Respiratory: The patient denies tuberculosis, denies pneumonia, denies frequent cough, denies pulmonary embolism, denies shortness of breath, and denies coughing up blood. Gastrointestinal: The patient denies difficulty swallowing, denies acid reflux, denies ulcers, denies vomiting, denies jaundice/hepatitis, denies gallbladder problems, denies black or tarry stools, denies hemorrhoids, denies bleeding from rectum, denies diverticulitis, denies constipation, denies diarrhea, denies loss of stool control, and denies hernias. Kidney/Bladder: The patient notes kidney stones, denies urine infections, and denies bloody urine. Skin: The patient notes a history of skin cancer, denies bleeding/changing moles, and denies a history of skin rash. Neurologic: The patient denies a history of epilepsy/convulsions, denies headaches, denies head/spinal injuries, and denies stroke/TIA. Psychiatric: The patient denies psychiatric medications, denies depression, and denies voices, denies substance abuse. Endocrine: The patient denies thyroid disorders, denies diabetes, and denies hormonal problems. Hematologic: The patient denies a history of bruising, denies bleeding, and denies anemia, denies blood clots. Infections: The patient notes a history of measles and mumps, denies rheumatic fever, and denies sexually transmitted diseases. Musculoskeletal: The patient denies back pain/injury, denies back problems, denies sciatica, denies knee/foot trouble, denies arthritis, or denies gout. When was patient's last Mammogram screening? N/A Last Colonoscopy: 2019 Herminia Avalos LPN PHYSICAL EXAMINATION: General: The patient is 62 year old male, well nourished, well hydrated in no acute distress. The patient is oriented to time, place, and person. VITALS: Blood pressure 112/72, pulse 88, temperature 36.9 C (98.4 F), height 175.3 cm (5' 9), weight 62.6 kg (138 lb), SpO2 99 %. Body mass index is 20.38 kg/m . HEENT: Normal cephalic, ataumatic, pupils are equally round, sclera are anicteric, mucous membranes are moist, oropharynx is clear. Neck has no masses, asymmetry or lymphadenopathy. Thyroid exam soft no hard palpable nodules are identified. Respiratory: Clear to auscultation and percussion. Normal respiratory excursion and pattern. Cardiac: Examination is regular rate and rhythm. Abdominal exam: Soft, nontender, with no palpable masses. No hepatosplenomegaly. No palpable hernias. Rectal exam: exam deferred Extremities: no clubbing, cyanosis or edema. No adenopathy. Other: LABORATORY VALUES: As Noted RADIOLOGIC STUDIES: As Noted Assessment IMPRESSION: NODULE - left THYROID PLAN: I plan to perform an FNAC of the left Thyroid. Diagnoses: (E04.2) Multinodular goiter (primary encounter diagnosis) A letter was sent to Dr. Huntley primary care provider on file. indicating the above finding for this patient. Return to Clinic: The patient is instructed to follow-up with me 1 week post operatively. Ezekiel Taylor III, MD documented in this encounter [facility] 07-12-2022 Nurse Note REVIEW OF SYSTEMS: General: The patient denies fatigue, denies weight loss, denies weight gain, denies feeling hot, and denies feelings of cold. Eyes: The patient denies glaucoma, denies eye injury/surgery, does not wear glasses or contacts. Ear/Nose/Throat: The patient denies allergies, denies hayfever, denies ear infections, and denies bloody noses. Cardiovascular: The patient denies chest pain, denies heart disease, denies high blood pressure,denies cardiac stent, denies prior heart attack, denies irregular heart beat, denies high cholesterol, denies poor circulation, denies heart failure, other cardiac issues, denies claudication, denies cold feet, denies peripheral arterial stent. Respiratory: The patient denies tuberculosis, denies pneumonia, denies frequent cough, denies pulmonary embolism, denies shortness of breath, and denies coughing up blood. Gastrointestinal: The patient denies difficulty swallowing, denies acid reflux, denies ulcers, denies vomiting, denies jaundice/hepatitis, denies gallbladder problems, denies black or tarry stools, denies hemorrhoids, denies bleeding from rectum, denies diverticulitis, denies constipation, denies diarrhea, denies loss of stool control, and denies hernias. Kidney/Bladder: The patient notes kidney stones, denies urine infections, and denies bloody urine. Skin: The patient notes a history of skin cancer, denies bleeding/changing moles, and denies a history of skin rash. Neurologic: The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 Pay Patient Cleared - True Self-Pay required payment collected 07/30/2022 02/25/2023 1 1 Specialty Diagnoses / Procedures Referred By Angellaac t Referred To Contact Radiology Diagnoses Hyperlipidemia, unspecified Procedures CT cardiac scoring wo IV contrast Lashonda Anguiano DO [address] [facility] [address] [place] [address] Referral ID Status Reason Start Date Expiration Date Visits Requested Visits Authorized [id number] Authorized Perform Procedure 03/23/2024 03/23/2025 1 1 Care Teams (unrecognized sec tion and content) 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 Start Date End Date Lashonda Anguiano DO [address] [facility] [address] [place] [address] PCP - General Internal Medicine 07/22/22 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 Pankaj Nicolas MD Family Provider Active Dr. Lashonda Anguiano DO Primary Care Provider Active Team Status: Active Member Role Status Dates Dr. Lashonda Anguiano DO Primary Care Provide r, Attending Provider, Referring Provider Active Team Status: Inactive Member Role Status Dates Dr. 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 Start Date End Date Lashonda Anguiano DO [address] [facility] [address] [place], [place] [id number] PCP - General Internal Medicine 03/26/24 (unrecognized sect ion and content) No Status Records FoundNo Status Records FoundNo Status Records FoundNo Status Records Found INFORMATION SOURCE (unrecogn ized section and content) DATE CREATED AUTHOR 08/14/2022 [facility] DATE CREATED AUTHOR AUTHOR'S ORGANIZ ATION 02/08/2023 [facility] DATE CREATED AUTHOR AUTHOR'S ORGANIZ ATION 04/05/2024 [facility] DATE CREATED AUTHOR AUTHOR'S ORGANIZ ATION 03/24/2025 [facility] FOR RECORDS PERTAINING TO PATIENTS WHO ARE OR HAVE BEEN ENROLLED IN A CHEMICAL DEPENDENCY/SUBSTANCEABUSE PROGRAM, SOME INFORMATION MAY BE OMITTED. This clinical summary was aggregated from multiple sources. Caution should be exercised in using it in the provision of clinical care. This summary normalizes information from multiple sources, and as a consequence, information in this document may materially change the coding, format and clinical context of patient data. In addition, data may be omitted in some cases. CLINICAL DECISIONS SHOULD BE BASED ON THE PRIMARY CLINICAL RECORDS. [facility] [employer], [facility]. provides no warranty or guarantee of the accuracy or completeness of information in this document.
== END | disposition home or self-care (01) ==
PROVIDERS: PCP Internal Medicine; Referring Provider Internal Medicine; Visit Provider Internal Medicine
DX: E04.1 Nontoxic single thyroid nodule (principal)
CPT/HCPCS: 76536

== ENCOUNTER → 2025-04-06 | Outpatient (CLI) | payer MEDICARE, SELFPAY ==
--- NOTE | 2025-04-06 07:04 | BD_ITS ---
PROCEDURE: DEXA BONE DENSITY STUDY 04/06/2025 REASON FOR EXAM: M, age 64 y/o . Postmenopausal. TECHNIQUE: DEXA BONE DENSITY STUDY COMPARISON: Prior study dated March 25, 2023. FINDINGS: BMD and T-SCORES Lumbar spine: 0.681 g/cm2, T-score -3.7 Levels: L1 through L4 Change from prior: Improvement of 2.1%. Left femoral neck: 0.452 g/cm2, T-score -3.5 Femoral neck comparison data not recommended for monitoring change. Left total hip: 0.686 g/cm2, T-score -2.3 Change from prior: Improvement by 0.3%. The World Health Organization has defined the following categories based on bone density: Normal bone density: T-score equal to or greater than -1.0 Osteopenia: T-score between -1.0 and -2.5 Osteoporosis: T-score equal to or less than -2.5 The patient does meet the pharmacological treatment recommendations for prevention of osteoporosis. BD/Dexa Bone Density Study IMPRESSION: OSTEOPOROSIS. Recommend follow-up as clinically warranted. Reading Location: [place] [address]
== END | disposition home or self-care (01) ==
LOC: OPBD 07:02
PROVIDERS: PCP Internal Medicine; Referring Provider Internal Medicine; Visit Provider Internal Medicine
DX: M81.0 Age-related osteoporosis without current pathological fracture (principal)
CPT/HCPCS: 77080